=== PATIENT | male | born 1930 | race Caucasian/White ===

== ENCOUNTER 2019-06-18 15:59 | Inpatient (IN) | payer MEDICARE, OTHER ==
[2019-06-18] VITALS (26 sets, daily range): BP systolic 125–169; BP diastolic 46–63; PULSE 44–58; RESP 13–63; Ht 177.8 cm; Wt 73.0 kg
[~2019-06-18] VITALS: Ht 177.8 cm; Wt 73.0 kg
[~2019-06-18 15:59] MED LIST: ACET325S GTB; ALBU90AE INHALATION; ASCO250T96 G-TUBE; ASPI-903 GTB; ATOR10TA65 GTB; BISA5TAB6 PR; CARV6.2579 G-TUBE; CHLO473M4 MM; COLI150V10 IJ; DILT60TA PO; FAMO20TA18 GTB; FINA5TAB4 GTB; FOLI-49 GTB; LEVE500S8 IVPB; LEVE500V6 IVPB; LEVO150T7 PO; LIOT5TAB3 PO; LORA-444 IVP; LORA0.5T PO; LORA10TA3 GTB; MAGN2400 GTB; MAGN400T27 GTB; MULTI PO; ONDA4TAB13 IVP
[2019-06-18] MEDS ORDERED: BISACODYL 10 MG SUPP PR PRN (18:00)
[2019-06-18] MEDS ORDERED: ACETAMINOPHEN 650MG/20.3ML CUP GTB PRN (18:00)
[2019-06-18] MEDS ORDERED: LORAZEPAM 0.5 MG TAB GTB PRN (18:30)
[2019-06-18] MEDS ORDERED: ONDANSETRON 4 MG INJ IV PRN (18:30)
[2019-06-18] MEDS ORDERED: VANCOMYCIN IV PER PHARMACY XX SCH (18:30)
[2019-06-18] MEDS ORDERED: LORAZEPAM 2 MG INJ IV PRN (18:30)
[2019-06-18] MEDS ORDERED: MAGNESIUM HYDROXIDE 30ML CUP GTB PRN (18:30)
[2019-06-18] MEDS ORDERED: LEVETIRACETAM 500 MG (PMX) 100 ML IVPB ONE (18:30)
[2019-06-18] MEDS: DEXTROSE 5%-0.225% NACL 1,000 ML IV SCH (19:23)
--- NOTE | 2019-06-18 19:42 | CONS ---
Assessment/Plan Assessment/Plan Hospital Course (Demo Recall) Seizure with status epilepticus Marked sinus bradycardia appears to be related to medication as of mostly related to severe hypothyroidism Likely CVA Hypertension History of paroxysmal atrial fibrillation Anemia Respiratory failure status post tracheostomy vent dependent Encephalopathy This post sepsis urinary tract infection and pneumonia History of diabetes Renal insufficiency COPD History of dysphagia and ileus dyslipidemia Recommendations: Neuro work-up and treatment as per internal medicine and neurology consultation We will allow for permissive hypertension to the consideration for seizure being caused by acute CVA especially given the fact the 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 I will also check the cortisol level in a.m. We will closely monitor on the ICU Vent support will be continued Thank you for his referral. We will continue to follow along with you MARY JEAN BAPTISTE MD [facility] Consultation Date/Type/Reason Admit Date/Time Jun 18, 2019 at 16:30 Date of Consultation: Jun 18, 2019 Type of Consult Cardiology Reason for Consultation PAFIB .HTN Requesting Provider: GLORIA KWON MD Date/Time of Note DATE: 06/18/19 TIME: 19:41 Hx of Present Illness Interventional cardiology consultation note Chief complaint: Seizure Reason for consult: Paroxysmal atrial fibrillation, hypertension History of present illness: Thank you for this referral. History was obtained from review of the chart review of the ulcer discussion with staff and physician: Dr. Kwon. Patient also known to me from previous admission to [facility]. This is a 88-year-old gentleman with multiple complicated medical history who was transferred to our facility at the ICU because of recurrent seizures. Patient was transferred to [facility] a week ago almost. He has respiratory failure status post tracheostomy on the vent. He was noted to have seizure activity and after the seizure he has not been moving his right arm. Patient is nonverbal is unable to provide any history to me He has been noted to be severely bradycardic mostly in marked sinus bradycardia as low as 40s. Review of his labs from [facility] show that he has also been s everely hypothyroid and his TSH has been over 100. He has received IV Synthroid as well. Patient also has a history of paroxysmal atrial fibrillation and at [facility] has had very short transient episodes of A. fib. Patient has had severe anemia and has not been anticoagulated due to concerns about the bleeding and anemia Allergies: Penicillin Medications were reviewed as per medical reconciliation sheet Family history: No reported history early coronary artery disease Social history: Patient has been single and has no kids. Apparently he is an ex-smoker but detail is not clear Past medical history: Paroxysmal atrial fibrillation per old record thyroid disorder with severe hypothyroidism diabetes gastroesophageal reflux disease anemia COPD hypertension questionable history of CVA in the past. History of recurrent pleural effusion BPH. Especially failure status post tracheostomy vent dependent since June 2017. Renal failure in the past. History of dysphagia status post G-tube placement. Has been at some point on TPN has been due to ileus Review of system: Patient denies all others except for above-mentioned Past Medical History Medications Current Medications Diagnostic Test (Pha) (Accu-Chek) 1 ea Q12 XX ; Start 06/18/19 at 21:00 Acetaminophen (Tylenol Liquid) 650 mg Q4H PRN GTB MILD PAIN(1-3)OR ELEVATED TEMP; Start 06/18/19 at 18:00 Acetaminophen (Tylenol Liquid) 650 mg Q12 GTB ; Start 06/18/19 at 21:00 Albuterol/ Ipratropium (Duoneb) 3 ml Q4H RESP THERAPY HHN ; Start 06/18/19 at 21:00 Eye Lubricant (Artificial Tears Oph) 2 drop DAILY BOTH EYES ; Start 06/19/19 at 09:00 Ascorbic Acid (Vitamin C) 250 mg DAILY GTB ; Start 06/19/19 at 09:00 Aspirin (Aspirin) 81 mg DAILY GTB ; Start 06/19/19 at 09:00 Atorvastatin Calcium (Lipitor) 10 mg HS GTB ; Start 06/18/19 at 21:00 Aztreonam 50 ml @ 100 mls/hr Q8 IVPB ; Start 06/18/19 at 22:00 Bisacodyl (Dulcolax Supp) 10 mg DAILY PRN RI CONSTIPATION; Start 06/18/19 at 18:00 Carvedilol (Coreg) 6.25 mg BID GTB ; Start 06/18/19 at 21:00 Chlorhexidine Gluconate (Peridex) 15 ml BID MT ; Start 06/18/19 at 21:00 Dextrose/Sodium Chloride 1,000 ml @ 100 mls/hr Q10H IV Last administered on 06/18/19at 19:23; Admin Dose 100 MLS/HR; Start 06/18/19 at 18:30 Diltiazem HCl (Cardizem) 30 mg Q8 GTB ; Start 06/18/19 at 22:00 Famotidine (Pepcid) 20 mg HS GTB ; Start 06/18/19 at 21:00 Finasteride (Proscar) 5 mg DAILY GTB ; Start 06/19/19 at 09:00 Folic Acid (Folic Acid) 1 mg DAILY GTB ; Start 06/19/19 at 09:00 Heparin Sodium (Porcine) (Heparin (5000 Units/1ml)) 5,000 unit BID SC ; Start 06/18/19 at 21:00 Lactulose (Enulose) 30 gm Q8 GTB ; Start 06/18/19 at 22:00 Levetiracetam 100 ml @ 400 mls/hr Q12 IVPB ; Start 06/18/19 at 21:00 Loratadine (Claritin) 10 mg DAILY GTB ; Start 06/19/19 at 09:00 Lorazepam (Ativan) 0.5 mg Q4H PRN GTB ANXIETY; Start 06/18/19 at 18:30 Lorazepam (Ativan) 2 mg Q3H PRN IV SEIZURES; Start 06/18/19 at 18:30 Magnesium Hydroxide (Milk Of Mag) 30 ml DAILY PRN GTB CONSTIPATION; Start 06/18/19 at 18:30 Multivitamins/ Minerals (Theragran-M) 1 tab DAILY GTB ; Start 06/19/19 at 09:00 Ondansetron HCl (Zofran Inj) 4 mg Q6H PRN IV NAUSEA AND/OR VOMITING; Start 06/18/19 at 18:30 Vancomycin HCl (Vanco Iv Per Pharmacy) VANCOMYCIN PER PHARMACY PER PROTOCOL XX ; Start 06/18/19 at 18:30 Vancomycin HCl 1.25 gm/Dextrose 250 ml @ 83.333 mls/ hr Q36H IVPB ; Start 06/18/19 at 20:00 Allergies: Coded Allergies: Penicillins (Verified Allergy, Unknown, 07/18/09) Exam/Review of Systems Vital Signs Vitals Vital Signs Date Temp Pulse Resp B/P (MAP) Pulse Ox O2 O2 Flow FiO2 Time Delivery Rate 06/18/19 44 17:12 06/18/19 14 100 30 16:30 Exam Exam General: Elderly cachectic looking gentleman status post tracheostomy on the ventilator HEENT: NC/AT. Eyes are closed NECK: This post tracheostomy. no stridor. CV: Cardiac systolic murmur; no gallop or rubs. PULM: no wheezing . Mild rhonchi. GI: SOFT, NT, ND, post tube feeding Extremity: trace B/L LE edema. no clubbing. neuro: Lethargic, Psych: calm rectal: deferred . EKG done at [facility] shows marked sinus bradycardia right bundle branch block Labs Results 24hrs Laboratory Tests Test 06/18/19 18:07 Bedside Glucose 96 Medications Medications Current Medications Diagnostic Test (Pha) (Accu-Chek) 1 ea Q12 XX ; Start 06/18/19 at 21:00 Acetaminophen (Tylenol Liquid) 650 mg Q4H PRN GTB MILD PAIN(1-3)OR ELEVATED TEMP; Start 06/18/19 at 18:00 Acetaminophen (Tylenol Liquid) 650 mg Q12 GTB ; Start 06/18/19 at 21:00 Albuterol/ Ipratropium (Duoneb) 3 ml Q4H RESP THERAPY HHN ; Start 06/18/19 at 21:00 Eye Lubricant (Artificial Tears Oph) 2 drop DAILY BOTH EYES ; Start 06/19/19 at 09:00 Ascorbic Acid (Vitamin C) 250 mg DAILY GTB ; Start 06/19/19 at 09:00 Aspirin (Aspirin) 81 mg DAILY GTB ; Start 06/19/19 at 09:00 Atorvastatin Calcium (Lipitor) 10 mg HS GTB ; Start 06/18/19 at 21:00 Aztreonam 50 ml @ 100 mls/hr Q8 IVPB ; Start 06/18/19 at 22:00 Bisacodyl (Dulcolax Supp) 10 mg DAILY PRN RI CONSTIPATION; Start 06/18/19 at 18:00 Carvedilol (Coreg) 6.25 mg BID GTB ; Start 06/18/19 at 21:00 Chlorhexidine Gluconate (Peridex) 15 ml BID MT ; Start 06/18/19 at 21:00 Dextrose/Sodium Chloride 1,000 ml @ 100 mls/hr Q10H IV Last administered on 06/18/19at 19:23; Admin Dose 100 MLS/HR; Start 06/18/19 at 18:30 Diltiazem HCl (Cardizem) 30 mg Q8 GTB ; Start 06/18/19 at 22:00 Famotidine (Pepcid) 20 mg HS GTB ; Start 06/18/19 at 21:00 Finasteride (Proscar) 5 mg DAILY GTB ; Start 06/19/19 at 09:00 Folic Acid (Folic Acid) 1 mg DAILY GTB ; Start 06/19/19 at 09:00 Heparin Sodium (Porcine) (Heparin (5000 Units/1ml)) 5,000 unit BID SC ; Start 06/18/19 at 21:00 Lactulose (Enulose) 30 gm Q8 GTB ; Start 06/18/19 at 22:00 Levetiracetam 100 ml @ 400 mls/hr Q12 IVPB ; Start 06/18/19 at 21:00 Loratadine (Claritin) 10 mg DAILY GTB ; Start 06/19/19 at 09:00 Lorazepam (Ativan) 0.5 mg Q4H PRN GTB ANXIETY; Start 06/18/19 at 18:30 Lorazepam (Ativan) 2 mg Q3H PRN IV SEIZURES; Start 06/18/19 at 18:30 Magnesium Hydroxide (Milk Of Mag) 30 ml DAILY PRN GTB CONSTIPATION; Start 06/18/19 at 18:30 Multivitamins/ Minerals (Theragran-M) 1 tab DAILY GTB ; Start 06/19/19 at 09:00 Ondansetron HCl (Zofran Inj) 4 mg Q6H PRN IV NAUSEA AND/OR VOMITING; Start 06/18/19 at 18:30 Vancomycin HCl (Vanco Iv Per Pharmacy) VANCOMYCIN PER PHARMACY PER PROTOCOL XX ; Start 06/18/19 at 18:30 Vancomycin HCl 1.25 gm/Dextrose 250 ml @ 83.333 mls/ hr Q36H IVPB ; Start 06/18/19 at 20:00 MARY JEAN BAPTISTE MD Jun 18, 2019 19:42
[2019-06-18] MEDS ORDERED: FENTAnyl (DRIP) 1000 mcg/100mL 100 ML IV SCH (20:00)
[2019-06-18] MEDS ORDERED: MIDAZOLAM (DRIP) 50 mg/50 mL 50 ML IV SCH (20:00)
[2019-06-18] MEDS ORDERED: VANCOMYCIN 1.25 GM in DEXTROSE 5% 250 ML IVPB SCH (20:00)
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
[2019-06-18] MEDS ORDERED: ACETAMINOPHEN 650MG/20.3ML CUP GTB SCH (21:00)
[2019-06-18] MEDS ORDERED: DEXTROSE 5% WATER 500 ML BAG IV ONE ×2 (21:00→21:30)
[2019-06-18] MEDS ORDERED: LEVOTHYROXINE 500 MCG VIAL IV ONE (21:00)
[2019-06-18] MEDS ORDERED: HEPARIN 5,000 UNIT/1 ML VIAL SC SCH (21:00)
[2019-06-18] MEDS ORDERED: ACCU-CHEK XX SCH (21:00)
[2019-06-18] MEDS ORDERED: ALBUTEROL/IPRATROPIUM (NEB) 3 ML AMP HHN SCH (21:00)
[2019-06-18] MEDS: CHLORHEXIDINE GLUCONATE 15 ML UD CUP MT SCH (21:26)
[2019-06-18] MEDS: AZTREONAM 1 GM/NS (PMX) 50 ML IVPB SCH (21:27)
[2019-06-18] MEDS: ATORVASTATIN 10 MG TAB GTB SCH (21:28)
[2019-06-18] MEDS: BALSAM PERU/CASTOR OIL 60 GM TUBE TOP SCH (21:28)
[2019-06-18] MEDS: FAMOTIDINE 20 MG TAB GTB SCH (21:28)
[2019-06-18] MEDS ORDERED: LEVOTHYROXINE 100 MCG VIAL IV ONE (21:30)
[2019-06-18] MEDS: LEVETIRACETAM 1500 MG (PMX) 100 ML IVPB SCH (21:40)
[2019-06-18] MEDS: DILTIAZEM 30 MG TAB GTB SCH (22:00)
[2019-06-18] MEDS ORDERED: LACTULOSE 30ML CUP GTB SCH (22:00)
[2019-06-19] VITALS (52 sets, daily range): BP systolic 94–157; BP diastolic 39–114; PULSE 36–67; RESP 14–25
[2019-06-19] MEDS: IPRATROPIUM (HFA) 12.9 GM INHALER INH SCH ×6 (01:42→21:26)
[2019-06-19] MEDS: ALBUTEROL HFA 8 GM INHALER INH SCH ×6 (01:42→21:26)
[2019-06-19] MEDS ORDERED: LEVOTHYROXINE 100 MCG TAB GTB SCH (06:00)
[2019-06-19] MEDS: ACCU-CHEK XX SCH ×4 (06:00→19:00)
[2019-06-19] MEDS: DILTIAZEM 30 MG TAB GTB SCH ×3 (06:00→22:00)
[2019-06-19] MEDS: DEXTROSE 5%-0.225% NACL 1,000 ML IV SCH ×2 (06:11→15:52)
[2019-06-19] MEDS: AZTREONAM 1 GM/NS (PMX) 50 ML IVPB SCH ×3 (06:11→21:30)
[2019-06-19] MEDS ORDERED: POTASSIUM CHLORIDE (SR) 20 MEQ TAB PO STA (07:23)
--- NOTE | 2019-06-19 07:33 | CONS ---
Assessment/Plan Assessment/Plan Problems: (1) Hypothyroidism (acquired) Status: Chronic Comment: This patient presents with a fairly clear picture of myxedema. This partially treated which she can tell from the free T4 but he is still extremely ill. He is received 1 dose IV to saturate the receptor as now on oral replacement and I am supplementing that with T3. This is an above average aggressive approach to this however given his extremis and the metabolic abnormalities going on I am choosing an aggressive approach initially and we can back down subsequently. These note since we have access to a functional GI tract I am using enteral route for replacement (2) Hypernatremia Status: Chronic Comment: Improved and close are normal, not quite normal yet (3) Acute hypokalemia Status: Acute Comment: Needs replacement which will do through the GI tract (4) Severe anemia Status: Chronic Comment: As per primary team (5) Hyperlipidemia Status: Chronic Comment: Noted. Under the present circumstances I am not certain of the utility of using a statin drug but he is already on Qualifiers: Hyperlipidemia type: unspecified Qualified Codes: E78.5 - Hyperlipidemia, unspecified (6) Chronic kidney disease (CKD) stage G3a/A2, moderately decreased glomerular filtration rate (GFR) between 45-59 mL/min/1.73 square meter and albuminuria creatinine ratio between 30-299 mg/g Status: Chronic Comment: Renal function improved with correction of dehydration (7) Maharaj catheter in place on admission Status: Chronic Comment: Noted. Please note he was seen by Dr. Villanueva while he was over [facility] (8) Prostatic hypertrophy Status: Chronic Comment: Continue with a 5 alpha reductase inhibitor (9) Respiratory failure Onset Date: ~ 05/2017 Status: Chronic Comment: As per pulmonary. I have doubts that he will be able to be weaned off the machine Qualifiers: Chronicity: chronic Respiratory failure complication: unspecified whether with hypoxia or hypercapnia Qualified Codes: J96.10 - Chronic respiratory failure, unspecified whether with hypoxia or hypercapnia (10) Encephalopathy Status: Chronic Comment: Still extremely encephalopathic. Impossible to determine where he will be once we get the thyroid function corrected but I do not have high hopes (11) Paroxysmal atrial fibrillation Status: Chronic Comment: Remains in sinus rhythm despite usage of aggressive thyroid hormone replacement Consultation Date/Type/Reason Admit Date/Time Jun 18, 2019 at 16:30 Initial Consult Date 06/18/19 Type of Consult Endocrine Reason for Consultation Myxedema; chronic encephalopathy; chronic respiratory failure with chronic tracheostomy; unable to eat with G-tube; aspiration syndrome; chronic Maharaj catheter; dehydration with hypernatremia and acute renal insufficiency; seizure disorder Requesting Provider: GLORIA KWON MD Date/Time of Note DATE: 06/19/19 TIME: 07:28 24 HR Interval Summary Subjective hx not possible: pt non-verbal, pt critical status Exam/Review of Systems Exam Vitals Vital Signs Date Temp Pulse Resp B/P (MAP) Pulse Ox O2 O2 Flow FiO2 Time Delivery Rate 06/19/19 47 15 146/49 100 06:30 (81) 06/19/19 98.3 Mechanical 06:00 Ventilator 06/19/19 30 05:50 Intake and Output 06/18/19 06/18/19 06/19/19 1515:00 23:00 07:00 IntakeIntake Total 763.66 ml 1114.5 ml OutputOutput Total 560 ml BalanceBalance 763.66 ml 554.5 ml Constitutional: non-verbal Head: normocephalic, atraumatic Neck: other (Tracheostomy; no palpable thyroid enlargement) Respiratory: clear to auscultation, normal air movement Cardiovascular: regular rate and rhythm, nl pulses Gastrointestinal: soft, other (Gastrostomy tube present) Genitourinary - Male: other (Catheter pleasant present) Skin: other (Thickened cool dry skin) Results Result Diagram: 06/19/19 0430 06/19/19 0430 Results 24hrs Laboratory Tests Test 06/18/19 07:35 06/18/19 18:07 06/18/19 19:34 06/18/19 20:08 Hepatitis B NEGATIVE Surface Antigen Hepatitis C NEGATIVE Antibody Bedside Glucose 96 White Blood Count 8.9 Red Blood Count 2.29 L Hemoglobin 6.7 *L Hematocrit 22.1 L Mean Corpuscular 96.5 Volume Mean Corpuscular 29.3 Hemoglobin Mean Corpuscular 30.3 L Hemoglobin Concen t Red Cell 16.1 H Distribution Width Platelet Count 289 Mean Platelet 10.5 H Volume Immature 1.400 H Granulocytes % Segmented 61 Neutrophils % (Manual) Lymphocytes % 26 (Manual) Monocytes % 8 (Manual) Eosinophils % 2 (Manual) Basophils % 1 (Manual) Myelocytes % 2 H (Manual) Nucleated Red 0.2 H Blood Cells % Immature 0.120 H Granulocytes # Lymphocytes 2.3 (Manual) Monocytes # 0.7 (Manual) Basophils # 0.0 (Manual) Myelocytes # 0.1 H Pathologist YES Review (Hematolog y) Platelet Estimate NORMAL Giant Platelets 3 H Erythrocyte 129 H Sedimentation Rate Sodium Level 156 H Potassium Level 3.7 Chloride Level 124 H Carbon Dioxide 26 Level Anion Gap 6 Blood Urea 25 H Nitrogen Creatinine 1.30 H Est Glomerular Filtrat Rate mL/min Glucose Level 87 Calcium Level 8.8 Total Bilirubin 0.3 Direct Bilirubin 0.00 Indirect 0.3 Bilirubin Aspartate Amino 81 H Transf (AST/SGOT) Alanine 64 Aminotransferase (ALT/SGPT) Alkaline 130 H Phosphatase C-Reactive 2.3 H Protein Total Protein 7.9 Albumin 3.0 L Globulin 4.90 H Albumin/Globulin 0.61 Ratio Thyroid 116.000 H Stimulating Hormone (TSH) Free Thyroxine 0.85 Ionized Calcium 1.3 (Measured) Test 06/18/19 22:20 06/19/19 00:47 06/19/19 04:30 06/19/19 05:00 Bedside Glucose 141 156 White Blood Count 7.9 Red Blood Count 2.28 L Hemoglobin 6.7 *L Hematocrit 22.2 L Mean Corpuscular 97.4 Volume Mean Corpuscular 29.4 Hemoglobin Mean Corpuscular 30.2 L Hemoglobin Concen t Red Cell 16.2 H Distribution Width Platelet Count 265 Mean Platelet 10.6 H Volume Immature 1.900 H Granulocytes % Neutrophils % 50.4 Lymphocytes % 27.7 Monocytes % 13.9 H Eosinophils % 5.6 Basophils % 0.5 Nucleated Red 0.0 Blood Cells % Immature 0.150 H Granulocytes # Neutrophils # 4.0 Lymphocytes # 2.2 Monocytes # 1.1 H Eosinophils # 0.4 Basophils # 0.0 Nucleated Red 0.0 Blood Cells # Sodium Level 148 H Potassium Level 3.4 L Chloride Level 118 H Carbon Dioxide 27 Level Anion Gap 3 L Blood Urea 24 H Nitrogen Creatinine 1.24 Est Glomerular Filtrat Rate mL/min Glucose Level 115 Hemoglobin A1c 5.6 Calcium Level 8.4 Phosphorus Level 2.7 Magnesium Level 1.8 Total Bilirubin 0.3 Direct Bilirubin 0.00 Indirect 0.3 Bilirubin Aspartate Amino 62 H Transf (AST/SGOT) Alanine 51 Aminotransferase (ALT/SGPT) Alkaline 121 Phosphatase Total Protein 7.2 Albumin 2.7 L Globulin 4.50 H Albumin/Globulin 0.60 Ratio Blood Gas Blood arterial Specimen Source Arterial Blood 06/19/2019 5:02:1 Date Drawn 9 AM Arterial Blood pH 7.420 (Temp corrected) Arterial Blood 38.8 pCO2 (Temp correct) Arterial Blood 106.1 H pO2 (Temp corrected) Arterial Blood 24.6 HCO3 Arterial Blood 0.2 Base Excess Arterial Blood 97.8 Oxygen Saturation Shaw Test ACCEPTAB Arterial Blood Right Radial Gas Puncture Site Arterial 0 Blood Carboxyhemo globin Arterial Blood 0.4 Methemoglobin Blood Gas A-a O2 62.2 H Differential Oxyhemoglobin 97.4 Percent Blood Gas 37.0 Temperature Blood Gas 14.0 Respiration Rate Blood Gas Actual 15 Respiration Rate Blood Gas VENT - AC Modality FiO2 30.0 Blood Gas Tidal 500.0 Volume Blood Gas Low 5.0 PEEP Setting Blood Gas Notified Whom Blood Gas 06/19/2019 5:10:0 Notified Time 6 AM Test 06/19/19 06:05 Bedside Glucose 105 Medications Medication Current Medications Acetaminophen (Tylenol Liquid) 650 mg Q4H PRN GTB MILD PAIN(1-3)OR ELEVATED TEMP; Start 06/18/19 at 18:00 Eye Lubricant (Artificial Tears Oph) 2 drop DAILY BOTH EYES ; Start 06/19/19 at 09:00 Ascorbic Acid (Vitamin C) 250 mg DAILY GTB ; Start 06/19/19 at 09:00 Aspirin (Aspirin) 81 mg DAILY GTB ; Start 06/19/19 at 09:00 Atorvastatin Calcium (Lipitor) 10 mg HS GTB Last administered on 06/18/19at 21:28; Admin Dose 10 MG; Start 06/18/19 at 21:00 Aztreonam 50 ml @ 100 mls/hr Q8 IVPB Last administered on 06/19/19at 06:11; Admin Dose 100 MLS/HR; Start 06/18/19 at 22:00 Bisacodyl (Dulcolax Supp) 10 mg DAILY PRN [place] CONSTIPATION; Start 06/18/19 at 18:00 Carvedilol (Coreg) 6.25 mg BID GTB ; Start 06/18/19 at 21:00 Chlorhexidine Gluconate (Peridex) 15 ml BID MT Last administered on 06/18/19at 21:26; Admin Dose 15 ML; Start 06/18/19 at 21:00 Dextrose/Sodium Chloride 1,000 ml @ 100 mls/hr Q10H IV Last administered on 06/19/19at 06:11; Admin Dose 100 MLS/HR; Start 06/18/19 at 18:30 Diltiazem HCl (Cardizem) 30 mg Q8 GTB ; Start 06/18/19 at 22:00 Famotidine (Pepcid) 20 mg HS GTB Last administered on 06/18/19at 21:28; Admin Dose 20 MG; Start 06/18/19 at 21:00 Finasteride (Proscar) 5 mg DAILY GTB ; Start 06/19/19 at 09:00 Folic Acid (Folic Acid) 1 mg DAILY GTB ; Start 06/19/19 at 09:00 Heparin Sodium (Porcine) (Heparin (5000 Units/1ml)) 5,000 unit BID SC ; Start 06/18/19 at 21:00; Status Hold Lactulose (Enulose) 30 gm Q8 GTB ; Start 06/18/19 at 22:00; Status Hold Levetiracetam 100 ml @ 400 mls/hr Q12 IVPB Last administered on 06/18/19at 21:40; Admin Dose 400 MLS/HR; Start 06/18/19 at 21:00 Loratadine (Claritin) 10 mg DAILY GTB ; Start 06/19/19 at 09:00 Lorazepam (Ativan) 0.5 mg Q4H PRN GTB ANXIETY; Start 06/18/19 at 18:30 Lorazepam (Ativan) 2 mg Q3H PRN IV SEIZURES; Start 06/18/19 at 18:30 Magnesium Hydroxide (Milk Of Mag) 30 ml DAILY PRN GTB CONSTIPATION; Start 06/18/19 at 18:30 Multivitamins/ Minerals (Theragran-M) 1 tab DAILY GTB ; Start 06/19/19 at 09:00 Ondansetron HCl (Zofran Inj) 4 mg Q6H PRN IV NAUSEA AND/OR VOMITING; Start 06/18/19 at 18:30 Vancomycin HCl (Vanco Iv Per Pharmacy) VANCOMYCIN PER PHARMACY PER PROTOCOL XX ; Start 06/18/19 at 18:30 Vancomycin HCl 1.25 gm/Dextrose 250 ml @ 83.333 mls/ hr Q36H IVPB Last administered on 06/18/19at 21:27; Admin Dose 83.333 MLS/HR; Start 06/18/19 at 20:00 Midazolam HCl 50 ml @ 1 mls/hr TITRATE IV Last administered on 06/18/19at 21:27; Admin Dose 1 MLS/HR; Start 06/18/19 at 20:00 Fentanyl 100 ml @ 2.5 mls/hr TITRATE IV Last administered on 06/18/19at 21:30; Admin Dose 2.5 MLS/HR; Start 06/18/19 at 20:00 Liothyronine Sodium (Cytomel) 5 mcg DAILY GTB ; Start 06/19/19 at 09:00 Diagnostic Test (Pha) (Accu-Chek) 1 ea Q6 XX ; Start 06/19/19 at 00:00; Stop 06/20/19 at 23:59 Albuterol (Ventolin Hfa) 4 puff Q4H RESP THERAPY INH Last administered on 06/19/19at 04:46; Admin Dose 4 PUFF; Start 06/19/19 at 01:00 Ipratropium [place] (Atrovent Hfa) 4 puff Q4H RESP THERAPY INH Last administered on 06/19/19at 04:46; Admin Dose 4 PUFF; Start 06/19/19 at 01:00 Levothyroxine Sodium (Synthroid) 150 mcg DAILY@06 GTB ; Start 06/20/19 at 06:00 INA VELAZQUEZ MD Jun 19, 2019 07:33
[2019-06-19] MEDS ORDERED: FINASTERIDE 5 MG TAB GTB SCH (09:00)
[2019-06-19] MEDS ORDERED: ASPIRIN 81 MG TAB GTB SCH (09:00)
[2019-06-19] MEDS ORDERED: LIOTHYRONINE 5 MCG TAB GTB SCH (09:00)
[2019-06-19] MEDS ORDERED: ARTIFICIAL TEARS 15 ML OPH BOTH EYES SCH (09:00)
[2019-06-19] MEDS ORDERED: MULTIVITAMINS/MINERALS TAB GTB SCH (09:00)
[2019-06-19] MEDS ORDERED: FOLIC ACID 1 MG TAB GTB SCH (09:00)
[2019-06-19] MEDS ORDERED: ASCORBIC ACID 250 MG TAB GTB SCH (09:00)
[2019-06-19] MEDS ORDERED: LORATADINE 10 MG TAB GTB SCH (09:00)
--- NOTE | 2019-06-19 09:23 | CONS ---
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 History of paroxysmal atrial fibrillation Anemia Respiratory failure status post tracheostomy vent dependent Encephalopathy This post sepsis urinary tract infection and pneumonia History of diabetes Renal insufficiency COPD History of dysphagia and ileus s/p percutanesou J tube Recommendations: Neuro work-up and treatment as per internal medicine and neurology consultation continue tube feeds routine J tube care continue other supportive care Consultation Date/Type/Reason Admit Date/Time Jun 18, 2019 at 16:30 Initial Consult Date 06/18/19 Type of Consult GI Requesting Provider: GLORIA KWON MD Date/Time of Note DATE: 06/19/19 TIME: 09:20 24 HR Interval Summary Subjective hx not possible: pt non-verbal Exam/Review of Systems Exam Vitals Vital Signs Date Temp Pulse Resp B/P (MAP) Pulse Ox O2 O2 Flow FiO2 Time Delivery Rate 06/19/19 46 15 100 30 07:35 06/19/19 146/49 06:30 (81) 06/19/19 98.3 Mechanical 06:00 Ventilator Intake and Output 06/18/19 06/18/19 06/19/19 1515:00 23:00 07:00 IntakeIntake Total 763.66 ml 1114.5 ml OutputOutput Total 560 ml BalanceBalance 763.66 ml 554.5 ml Constitutional: non-verbal Psych: no complaints Head: normocephalic, atraumatic Eyes: nl conjunctiva, nl lids ENMT: nl external ears & nose, nl lips & teeth, nl nasal mucosa & septum Neck: supple, non-tender Respiratory: clear to auscultation, normal air movement Cardiovascular: regular rate and rhythm, nl pulses Gastrointestinal: soft, other (J tube intact) Results Result Diagram: 06/19/19 0430 06/19/19 0430 Results 24hrs Laboratory Tests Test 06/18/19 18:07 06/18/19 19:34 06/18/19 20:08 06/18/19 22:20 Bedside Glucose 96 141 White Blood Count 8.9 Red Blood Count 2.29 L Hemoglobin 6.7 *L Hematocrit 22.1 L Mean Corpuscular 96.5 Volume Mean Corpuscular 29.3 Hemoglobin Mean Corpuscular 30.3 L Hemoglobin Concen t Red Cell 16.1 H Distribution Width Platelet Count 289 Mean Platelet 10.5 H Volume Immature 1.400 H Granulocytes % Segmented 61 Neutrophils % (Manual) Lymphocytes % 26 (Manual) Monocytes % 8 (Manual) Eosinophils % 2 (Manual) Basophils % 1 (Manual) Myelocytes % 2 H (Manual) Nucleated Red 0.2 H Blood Cells % Immature 0.120 H Granulocytes # Lymphocytes 2.3 (Manual) Monocytes # 0.7 (Manual) Basophils # 0.0 (Manual) Myelocytes # 0.1 H Pathologist YES Review (Hematolog y) Platelet Estimate NORMAL Giant Platelets 3 H Erythrocyte 129 H Sedimentation Rate Sodium Level 156 H Potassium Level 3.7 Chloride Level 124 H Carbon Dioxide 26 Level Anion Gap 6 Blood Urea 25 H Nitrogen Creatinine 1.30 H Est Glomerular Filtrat Rate mL/min Glucose Level 87 Calcium Level 8.8 Total Bilirubin 0.3 Direct Bilirubin 0.00 Indirect 0.3 Bilirubin Aspartate Amino 81 H Transf (AST/SGOT) Alanine 64 Aminotransferase (ALT/SGPT) Alkaline 130 H Phosphatase C-Reactive 2.3 H Protein Total Protein 7.9 Albumin 3.0 L Globulin 4.90 H Albumin/Globulin 0.61 Ratio Thyroid 116.000 H Stimulating Hormone (TSH) Free Thyroxine 0.85 Ionized Calcium 1.3 (Measured) Test 06/19/19 00:47 06/19/19 04:30 06/19/19 05:00 06/19/19 06:05 Bedside Glucose 156 105 White Blood Count 7.9 Red Blood Count 2.28 L Hemoglobin 6.7 *L Hematocrit 22.2 L Mean Corpuscular 97.4 Volume Mean Corpuscular 29.4 Hemoglobin Mean Corpuscular 30.2 L Hemoglobin Concen t Red Cell 16.2 H Distribution Width Platelet Count 265 Mean Platelet 10.6 H Volume Immature 1.900 H Granulocytes % Neutrophils % 50.4 Lymphocytes % 27.7 Monocytes % 13.9 H Eosinophils % 5.6 Basophils % 0.5 Nucleated Red 0.0 Blood Cells % Immature 0.150 H Granulocytes # Neutrophils # 4.0 Lymphocytes # 2.2 Monocytes # 1.1 H Eosinophils # 0.4 Basophils # 0.0 Nucleated Red 0.0 Blood Cells # Sodium Level 148 H Potassium Level 3.4 L Chloride Level 118 H Carbon Dioxide 27 Level Anion Gap 3 L Blood Urea 24 H Nitrogen Creatinine 1.24 Est Glomerular Filtrat Rate mL/min Glucose Level 115 Hemoglobin A1c 5.6 Calcium Level 8.4 Phosphorus Level 2.7 Magnesium Level 1.8 Total Bilirubin 0.3 Direct Bilirubin 0.00 Indirect 0.3 Bilirubin Aspartate Amino 62 H Transf (AST/SGOT) Alanine 51 Aminotransferase (ALT/SGPT) Alkaline 121 Phosphatase Total Protein 7.2 Albumin 2.7 L Globulin 4.50 H Albumin/Globulin 0.60 Ratio Random Cortisol 10.0 Blood Gas Blood arterial Specimen Source Arterial Blood 06/19/2019 5:02:1 Date Drawn 9 AM Arterial Blood pH 7.420 (Temp corrected) Arterial Blood 38.8 pCO2 (Temp correct) Arterial Blood 106.1 H pO2 (Temp corrected) Arterial Blood 24.6 HCO3 Arterial Blood 0.2 Base Excess Arterial Blood 97.8 Oxygen Saturation Shaw Test ACCEPTAB Arterial Blood Right Radial Gas Puncture Site Arterial 0 Blood Carboxyhemo globin Arterial Blood 0.4 Methemoglobin Blood Gas A-a O2 62.2 H Differential Oxyhemoglobin 97.4 Percent Blood Gas 37.0 Temperature Blood Gas 14.0 Respiration Rate Blood Gas Actual 15 Respiration Rate Blood Gas VENT - AC Modality FiO2 30.0 Blood Gas Tidal 500.0 Volume Blood Gas Low 5.0 PEEP Setting Blood Gas Notified Whom Blood Gas 06/19/2019 5:10:0 Notified Time 6 AM Medications Medication Current Medications Acetaminophen (Tylenol Liquid) 650 mg Q4H PRN GTB MILD PAIN(1-3)OR ELEVATED TEMP; Start 06/18/19 at 18:00 Eye Lubricant (Artificial Tears Oph) 2 drop DAILY BOTH EYES ; Start 06/19/19 at 09:00 Ascorbic Acid (Vitamin C) 250 mg DAILY GTB ; Start 06/19/19 at 09:00 Aspirin (Aspirin) 81 mg DAILY GTB ; Start 06/19/19 at 09:00 Atorvastatin Calcium (Lipitor) 10 mg HS GTB Last administered on 06/18/19at 2 1:28; Admin Dose 10 MG; Start 06/18/19 at 21:00 Aztreonam 50 ml @ 100 mls/hr Q8 IVPB Last administered on 06/19/19at 06:11; Admin Dose 100 MLS/HR; Start 06/18/19 at 22:00 Bisacodyl (Dulcolax Supp) 10 mg DAILY PRN [place] CONSTIPATION; Start 06/18/19 at 18:00 Carvedilol (Coreg) 6.25 mg BID GTB ; Start 06/18/19 at 21:00 Chlorhexidine Gluconate (Peridex) 15 ml BID MT Last administered on 06/18/19at 21:26; Admin Dose 15 ML; Start 06/18/19 at 21:00 Dextrose/Sodium Chloride 1,000 ml @ 100 mls/hr Q10H IV Last administered on 06/19/19at 06:11; Admin Dose 100 MLS/HR; Start 06/18/19 at 18:30 Diltiazem HCl (Cardizem) 30 mg Q8 GTB ; Start 06/18/19 at 22:00 Famotidine (Pepcid) 20 mg HS GTB Last administered on 06/18/19at 21:28; Admin Dose 20 MG; Start 06/18/19 at 21:00 Finasteride (Proscar) 5 mg DAILY GTB ; Start 06/19/19 at 09:00 Folic Acid (Folic Acid) 1 mg DAILY GTB ; Start 06/19/19 at 09:00 Heparin Sodium (Porcine) (Heparin (5000 Units/1ml)) 5,000 unit BID SC ; Start 06/18/19 at 21:00; Status Hold Lactulose (Enulose) 30 gm Q8 GTB ; Start 06/18/19 at 22:00; Status Hold Levetiracetam 100 ml @ 400 mls/hr Q12 IVPB Last administered on 06/18/19at 21:40; Admin Dose 400 MLS/HR; Start 06/18/19 at 21:00 Loratadine (Claritin) 10 mg DAILY GTB ; Start 06/19/19 at 09:00 Lorazepam (Ativan) 0.5 mg Q4H PRN GTB ANXIETY; Start 06/18/19 at 18:30 Lorazepam (Ativan) 2 mg Q3H PRN IV SEIZURES; Start 06/18/19 at 18:30 Magnesium Hydroxide (Milk Of Mag) 30 ml DAILY PRN GTB CONSTIPATION; Start 06/18/19 at 18:30 Multivitamins/ Minerals (Theragran-M) 1 tab DAILY GTB ; Start 06/19/19 at 09:00 Ondansetron HCl (Zofran Inj) 4 mg Q6H PRN IV NAUSEA AND/OR VOMITING; Start 06/18/19 at 18:30 Vancomycin HCl (Vanco Iv Per Pharmacy) VANCOMYCIN PER PHARMACY PER PROTOCOL XX ; Start 06/18/19 at 18:30 Vancomycin HCl 1.25 gm/Dextrose 250 ml @ 83.333 mls/ hr Q36H IVPB Last administered on 06/18/19at 21:27; Admin Dose 83.333 MLS/HR; Start 06/18/19 at 20:00 Midazolam HCl 50 ml @ 1 mls/hr TITRATE IV Last administered on 06/18/19at 21:27; Admin Dose 1 MLS/HR; Start 06/18/19 at 20:00 Fentanyl 100 ml @ 2.5 mls/hr TITRATE IV Last administered on 06/18/19at 21:30; Admin Dose 2.5 MLS/HR; Start 06/18/19 at 20:00 Liothyronine Sodium (Cytomel) 5 mcg DAILY GTB ; Start 06/19/19 at 09:00 Diagnostic Test (Pha) (Accu-Chek) 1 ea Q6 XX ; Start 06/19/19 at 00:00; Stop 06/20/19 at 23:59 Albuterol (Ventolin Hfa) 4 puff Q4H RESP THERAPY INH Last administered on 06/19/19at 04:46; Admin Dose 4 PUFF; Start 06/19/19 at 01:00 Ipratropium [place] (Atrovent Hfa) 4 puff Q4H RESP THERAPY INH Last administered on 06/19/19at 04:46; Admin Dose 4 PUFF; Start 06/19/19 at 01:00 Levothyroxine Sodium (Synthroid) 150 mcg DAILY@06 GTB ; Start 06/20/19 at 06:00 ERVIN HUMMEL MD Jun 19, 2019 09:23
[2019-06-19] MEDS ORDERED: POTASSIUM CHLORIDE 20 MEQ POWDER FOR ORAL SOLN GTB ONE (09:30)
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
[2019-06-19] MEDS: CHLORHEXIDINE GLUCONATE 15 ML UD CUP MT SCH ×2 (09:37→20:48)
[2019-06-19] MEDS: BALSAM PERU/CASTOR OIL 60 GM TUBE TOP SCH ×2 (09:40→21:29)
[2019-06-19] MEDS: LEVETIRACETAM 1500 MG (PMX) 100 ML IVPB SCH ×2 (12:08→20:54)
[2019-06-19] MEDS ORDERED: COLISTIMETHATE (25 MG/ML INHAL SYG) NEB SCH (12:30)
--- NOTE | 2019-06-19 12:40 | PN ---
DATE: 06/19/2019 INFECTIOUS DISEASE PROGRESS NOTE SUBJECTIVE: The patient was transferred yesterday from [facility] secondary to seizures, had no seizures overnight, no fevers, looks comfortable and in no distress. PAST MEDICAL HISTORY: Significant for chronic respiratory failure and dysphagia, anemia, chronic encephalopathy, diabetes, COPD, dysphagia. MICROBIOLOGY: Sputum culture on 06/17/2019 at [facility] growing Acinetobacter baumannii, multi-drug resistant. Stool for C. diff from 2 days ago came back negative. INDWELLINGS: Trach, PEG, Maharaj. DIAGNOSTICS: Chest x-ray this morning revealed left lung base opacification, may represent pleural effusion, infiltrate or atelectasis, and cardiomegaly. LABORATORY DATA: WBC 7.9, H and H 6.7 and 22.2, platelets 265, neutrophils 50.4, BUN 24, creatinine 1.24. ANTIMICROBIALS: The patient is on: 1. Aztreonam. 2. Vancomycin. PHYSICAL EXAMINATION: GENERAL: This is a chronically ill-appearing, elderly man who is noncommunicative, in no distress. HEENT: Head atraumatic, normocephalic. NECK: Supple. Tracheostomy present. CHEST: Rise symmetrical. Breath sounds diminished at the bases. HEART: S1, S2. ABDOMEN: Soft. Bowel tones present. EXTREMITIES: With trace edema. ASSESSMENT: 1. Status epilepticus, neurology on case. 2. Spinal diskitis and osteomyelitis per report from another facility, the patient is on broad spectrum coverage. 3. 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 4. Chronic encephalopathy. 5. Acute possibly on chronic kidney disease. PLAN: We are going to add colistin to the regimen. Continue other antibiotics. Await for spinal MRI. Transfuse as needed and monitor H and H. Pending stool for OB. Dictated By: BLAIR MERCADO S[employer] MIXER for KERRY CORRIGAN MD NI/NTS Conf#: [id number] DID#: [id number] CC: GLORIA KWON MD;*EndCC* MTDD
--- NOTE | 2019-06-19 14:28 | CONS ---
Consult Date/Type/Reason Admit Date/Time Jun 18, 2019 at 16:30 Initial Consult Date 06/18/19 Type of Consultation: cv Requesting Provider: GLORIA KWON MD Date/Time of Note DATE: 06/19/19 TIME: 14:22 Subjective Cardiology follow-up progress note Subjective: Case discussed with the staff. Telemetry was reviewed. Patient has remained in sinus rhythm with no more episode of atrial fibrillation. Patient remains nonverbal status with tracheostomy on the ventilator Objective: General: Elderly cachectic looking gentleman status post tracheostomy on the v entilator HEENT: NC/AT. Eyes are closed NECK: This post tracheostomy. no stridor. CV: Cardiac systolic murmur; no gallop or rubs. PULM: no wheezing . Mild rhonchi. GI: SOFT, NT, ND, post tube feeding Extremity: trace B/L LE edema. no clubbing. neuro: Lethargic, Psych: calm rectal: deferred . EKG done at [facility] shows marked sinus bradycardia right bundle branch block Objective Vitals Vital Signs Date Temp Pulse Resp B/P (MAP) Pulse Ox O2 O2 Flow FiO2 Time Delivery Rate 06/19/19 47 14 100 30 13:08 06/19/19 146/49 06:30 (81) 06/19/19 98.3 Mechanical 06:00 Ventilator Intake and Output 06/18/19 06/18/19 06/19/19 1414:59 22:59 06:59 IntakeIntake Total 456.83 ml 1421.33 ml OutputOutput Total 560 ml BalanceBalance 456.83 ml 861.33 ml Results/Medications Result Diagram: 06/19/19 0430 06/19/19 0430 Results 24 hrs Laboratory Tests Test 06/18/19 18:07 06/18/19 19:34 06/18/19 20:08 06/18/19 22:20 Bedside Glucose 96 141 White Blood Count 8.9 Red Blood Count 2.29 L Hemoglobin 6.7 *L Hematocrit 22.1 L Mean Corpuscular 96.5 Volume Mean Corpuscular 29.3 Hemoglobin Mean Corpuscular 30.3 L Hemoglobin Concen t Red Cell 16.1 H Distribution Width Platelet Count 289 Mean Platelet 10.5 H Volume Immature 1.400 H Granulocytes % Segmented 61 Neutrophils % (Manual) Lymphocytes % 26 (Manual) Monocytes % 8 (Manual) Eosinophils % 2 (Manual) Basophils % 1 (Manual) Myelocytes % 2 H (Manual) Nucleated Red 0.2 H Blood Cells % Immature 0.120 H Granulocytes # Lymphocytes 2.3 (Manual) Monocytes # 0.7 (Manual) Basophils # 0.0 (Manual) Myelocytes # 0.1 H Pathologist YES Review (Hematolog y) Platelet Estimate NORMAL Giant Platelets 3 H Erythrocyte 129 H Sedimentation Rate Sodium Level 156 H Potassium Level 3.7 Chloride Level 124 H Carbon Dioxide 26 Level Anion Gap 6 Blood Urea 25 H Nitrogen Creatinine 1.30 H Est Glomerular Filtrat Rate mL/min Glucose Level 87 Calcium Level 8.8 Total Bilirubin 0.3 Direct Bilirubin 0.00 Indirect 0.3 Bilirubin Aspartate Amino 81 H Transf (AST/SGOT) Alanine 64 Aminotransferase (ALT/SGPT) Alkaline 130 H Phosphatase C-Reactive 2.3 H Protein Total Protein 7.9 Albumin 3.0 L Globulin 4.90 H Albumin/Globulin 0.61 Ratio Thyroid 116.000 H Stimulating Hormone (TSH) Free Thyroxine 0.85 Ionized Calcium 1.3 (Measured) Test 06/19/19 00:47 06/19/19 04:30 06/19/19 05:00 06/19/19 06:05 Bedside Glucose 156 105 White Blood Count 7.9 Red Blood Count 2.28 L Hemoglobin 6.7 *L Hematocrit 22.2 L Mean Corpuscular 97.4 Volume Mean Corpuscular 29.4 Hemoglobin Mean Corpuscular 30.2 L Hemoglobin Concen t Red Cell 16.2 H Distribution Width Platelet Count 265 Mean Platelet 10.6 H Volume Immature 1.900 H Granulocytes % Neutrophils % 50.4 Lymphocytes % 27.7 Monocytes % 13.9 H Eosinophils % 5.6 Basophils % 0.5 Nucleated Red 0.0 Blood Cells % Immature 0.150 H Granulocytes # Neutrophils # 4.0 Lymphocytes # 2.2 Monocytes # 1.1 H Eosinophils # 0.4 Basophils # 0.0 Nucleated Red 0.0 Blood Cells # Sodium Level 148 H Potassium Level 3.4 L Chloride Level 118 H Carbon Dioxide 27 Level Anion Gap 3 L Blood Urea 24 H Nitrogen Creatinine 1.24 Est Glomerular Filtrat Rate mL/min Glucose Level 115 Hemoglobin A1c 5.6 Calcium Level 8.4 Phosphorus Level 2.7 Magnesium Level 1.8 Total Bilirubin 0.3 Direct Bilirubin 0.00 Indirect 0.3 Bilirubin Aspartate Amino 62 H Transf (AST/SGOT) Alanine 51 Aminotransferase (ALT/SGPT) Alkaline 121 Phosphatase Total Protein 7.2 Albumin 2.7 L Globulin 4.50 H Albumin/Globulin 0.60 Ratio Random Cortisol 10.0 Blood Gas Blood arterial Specimen Source Arterial Blood 06/19/2019 5:02:1 Date Drawn 9 AM Arterial Blood pH 7.420 (Temp corrected) Arterial Blood 38.8 pCO2 (Temp correct) Arterial Blood 106.1 H pO2 (Temp corrected) Arterial Blood 24.6 HCO3 Arterial Blood 0.2 Base Excess Arterial Blood 97.8 Oxygen Saturation Shaw Test ACCEPTAB Arterial Blood Right Radial Gas Puncture Site Arterial 0 Blood Carboxyhemo globin Arterial Blood 0.4 Methemoglobin Blood Gas A-a O2 62.2 H Differential Oxyhemoglobin 97.4 Percent Blood Gas 37.0 Temperature Blood Gas 14.0 Respiration Rate Blood Gas Actual 15 Respiration Rate Blood Gas VENT - AC Modality FiO2 30.0 Blood Gas Tidal 500.0 Volume Blood Gas Low 5.0 PEEP Setting Blood Gas Notified Whom Blood Gas 06/19/2019 5:10:0 Notified Time 6 AM Test 06/19/19 13:43 Bedside Glucose 83 Medications Current Medications Acetaminophen (Tylenol Liquid) 650 mg Q4H PRN GTB MILD PAIN(1-3)OR ELEVATED TEMP; Start 06/18/19 at 18:00 Eye Lubricant (Artificial Tears Oph) 2 drop DAILY BOTH EYES Last administered on 06/19/19at 09:39; Admin Dose 2 DROP; Start 06/19/19 at 09:00 Ascorbic Acid (Vitamin C) 250 mg DAILY GTB Last administered on 06/19/19at 09:37; Admin Dose 250 MG; Start 06/19/19 at 09:00 Aspirin (Aspirin) 81 mg DAILY GTB Last administered on 06/19/19 09:37; Admin Dose 81 MG; Start 06/19/19 at 09:00 Atorvastatin Calcium (Lipitor) 10 mg HS GTB Last administered on 06/18/19at 21:28; Admin Dose 10 MG; Start 06/18/19 at 21:00 Aztreonam 50 ml @ 100 mls/hr Q8 IVPB Last administered on 06/19/19at 06:11; Admin Dose 100 MLS/HR; Start 06/18/19 at 22:00 Bisacodyl (Dulcolax Supp) 10 mg DAILY PRN [place] CONSTIPATION; Start 06/18/19 at 18:00 Carvedilol (Coreg) 6.25 mg BID GTB ; Start 06/18/19 at 21:00 Chlorhexidine Gluconate (Peridex) 15 ml BID MT Last administered on 06/19/19at 09:37; Admin Dose 15 ML; Start 06/18/19 at 21:00 Dextrose/Sodium Chloride 1,000 ml @ 100 mls/hr Q10H IV Last administered on 06/19/19at 06:11; Admin Dose 100 MLS/HR; Start 06/18/19 at 18:30 Diltiazem HCl (Cardizem) 30 mg Q8 GTB ; Start 06/18/19 at 22:00 Famotidine (Pepcid) 20 mg HS GTB Last administered on 06/18/19at 21:28; Admin Dose 20 MG; Start 06/18/19 at 21:00 Finasteride (Proscar) 5 mg DAILY GTB Last administered on 06/19/19at 09:38; Admin Dose 5 MG; Start 06/19/19 at 09:00 Folic Acid (Folic Acid) 1 mg DAILY GTB Last administered on 06/19/19at 09:37; Admin Dose 1 MG; Start 06/19/19 at 09:00 Heparin Sodium (Porcine) (Heparin (5000 Units/1ml)) 5,000 unit BID SC ; Start 06/18/19 at 21:00; Status Hold Lactulose (Enulose) 30 gm Q8 GTB ; Start 06/18/19 at 22:00; Status Hold Levetiracetam 100 ml @ 400 mls/hr Q12 IVPB Last administered on 06/19/19at 12:08; Admin Dose 400 MLS/HR; Start 06/18/19 at 21:00 Loratadine (Claritin) 10 mg DAILY GTB Last administered on 06/19/19at 09:38; Admin Dose 10 MG; Start 06/19/19 at 09:00 Lorazepam (Ativan) 0.5 mg Q4H PRN GTB ANXIETY; Start 06/18/19 at 18:30 Lorazepam (Ativan) 2 mg Q3H PRN IV SEIZURES; Start 06/18/19 at 18:30 Magnesium Hydroxide (Milk Of Mag) 30 ml DAILY PRN GTB CONSTIPATION; Start 06/18/19 at 18:30 Multivitamins/ Minerals (Theragran-M) 1 tab DAILY GTB Last administered on 06/19/19at 09:37; Admin Dose 1 TAB; Start 06/19/19 at 09:00 Ondansetron HCl (Zofran Inj) 4 mg Q6H PRN IV NAUSEA AND/OR VOMITING; Start 06/18/19 at 18:30 Vancomycin HCl (Vanco Iv Per Pharmacy) VANCOMYCIN PER PHARMACY PER PROTOCOL XX ; Start 06/18/19 at 18:30 Vancomycin HCl 1.25 gm/Dextrose 250 ml @ 83.333 mls/ hr Q36H IVPB Last administered on 06/18/19at 21:27; Admin Dose 83.333 MLS/HR; Start 06/18/19 at 20:00 Midazolam HCl 50 ml @ 1 mls/hr TITRATE IV Last administered on 06/18/19at 21:27; Admin Dose 1 MLS/HR; Start 06/18/19 at 20:00 Fentanyl 100 ml @ 2.5 mls/hr TITRATE IV Last administered on 06/18/19at 21:30; Admin Dose 2.5 MLS/HR; Start 06/18/19 at 20:00 Liothyronine Sodium (Cytomel) 5 mcg DAILY GTB Last administered on 06/19/19at 09:38; Admin Dose 5 MCG; Start 06/19/19 at 09:00 Diagnostic Test (Pha) (Accu-Chek) 1 ea Q6 XX ; Start 06/19/19 at 00:00; Stop at 23:59 Albuterol (Ventolin Hfa) 4 puff Q4H RESP THERAPY INH Last administered on 06/19/19at 13:08; Admin Dose 4 PUFF; Start 06/19/19 at 01:00 Ipratropium [place] (Atrovent Hfa) 4 puff Q4H RESP THERAPY INH Last administered on 06/19/19at 13:08; Admin Dose 4 PUFF; Start 06/19/19 at 01:00 Levothyroxine Sodium (Synthroid) 150 mcg DAILY@06 GTB ; Start 06/20/19 at 06:00 Colistimethate Sodium (Colistin Inhal) 75 mg BID RESP THERAPY NEB ; Start 06/19/19 at 12:30 Miscellaneous Information (*Rx Drug Level Order Reminder*) VANCO TROUGH @ 0,700 0700 ONCE XX ; Start 06/20/19 at 07:00; Stop 06/20/19 at 07:01 Assessment/Plan Hospital Course (Demo Recall) Seizure with status epilepticus Marked sinus bradycardia appears to be related to medication as well as mostly related to severe hypothyroidism 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 Hypertension History of paroxysmal atrial fibrillation Anemia Respiratory failure status post tracheostomy vent dependent Encephalopathy This post sepsis urinary tract infection and pneumonia History of diabetes Renal insufficiency COPD History of dysphagia and ileus dyslipidemia Severe thyroid disorder Recommendations: Neuro work-up and treatment as per internal medicine and neurology consultation We will allow for permissive hypertension to the consideration for seizure being caused by acute CVA especially given the fact the patient has had 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 We will closely monitor on the ICU Vent support will be continued Transfusions as needed off amiodarone due to his severe thyroid d/o Thank you for his referral. We will continue to follow along with you MARY JEAN BAPTISTE MD [facility] MARY JEAN BAPTISTE MD Jun 19, 2019 14:27
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
[2019-06-19] MEDS ORDERED: COSYNTROPIN 0.25 MG INJ IV ONE (15:35)
--- NOTE | 2019-06-19 16:48 | RADRPT ---
Echocardiogram Report Patient Name: ILDEFONSO PEARLPatient ID: [id number] : 1930 (88y 7m)Study Date: 06/19/2019 8:03:23 AM Gender: Osielcession #: [id number] Tech: OSIEL Location: [facility] Ref.Physician: MARY WILDER Height(Cm): 178 BSA: 1.89Weight(Kg): 72.6 Quality: Technically Difficult StudyOrder Physician: MARY WILDER Account #: Procedures: Echocardiographic Report: Transthoracic echocardiogram with complete 2D, M-Mode, and doppler examination. Indications: Cerebrovascular Accident. Measurements: 2D/M Mode Doppler Measurement Value Normal Range Measurement Value Normal Range LVIDd 2D 4.4 [ 4.2 - 5.8 ] cm AV Peak Buck 1.3 [ 100.0 - 170.0 ] cm/se c LVIDs 2D 2.8 [ 2.5 - 4.0 ] cm AV Peak PG 6.0 [ 2.0 - 9.0 ] mmHg LVPWd 2D 1.1 [ 0.6 - 1.0 ] cm AI Peak PG 53.0 mmHg IVSd 2D 1.2 [ 0.6 - 1.0 ] cm AI Peak Buck 3.6 cm/sec AoR Diam 2D 3.6 [ 2.6 - 3.4 ] cm AI PHT 500.0 msec EF 2D 66.7 [ 52.0 - 72.0 ] percent LVOT Peak Buck 0.7 [ 70.0 - 110.0 ] cm/sec LA Dimen 2D 3.8 [ 3.0 - 4.0 ] cm LVOT Peak PG 2.0 [ 2.0 - 6.0 ] mmHg MV E Peak Buck 1.0 [ 60.0 - 130.0 ] cm/sec MV A Peak Buck 0.9 [ 100.0 - 120.0 ] cm/se c MV E/A 1.2 [ 0.8 - 1.5 ] ratio MV PHT 46.0 [ 20.0 - 100.0 ] msec MV Decel Time 158 [ 104 - 258 ] msec MV Decel [place] 7 Lat E` Buck 0.1 [ 10.0 - 15.0 ] cm/sec Lateral E/E` 12.0 [ 1.0 - 2.0 ] ratio Med E` Buck 0.1 cm/sec MV E/A 1.2 [ 0.8 - 1.5 ] ratio MVA PHT 4.8 [ 2.0 - 4.0 ] cm2 TR Peak Buck 3.1 [ 100.0 - 280.0 ] cm/se c TR Peak PG 38.0 mmHg PV Peak Buck 0.8 [ 40.0 - 80.0 ] cm/sec PV Peak PG 3.0 mmHg RVSP 48.0 [ 10.0 - 36.0 ] mmHg RA Pressure 10.0 mmHg Findings: Left Ventricle: Normal left ventricular systolic function. Normal left ventricular cavity size. Mild concentric left ventricular hypertrophy. Ejection fraction is visually estimated at 55 %. Tissue Doppler/Mitral Doppler indices are consistent with pseudonormalization with mildly elevated left atrial pressure (Stage II diastolic dysfunction), although patient unable to Valsalva. E/E'= 13. Right Ventricle: Normal right ventricular size. Normal right ventricular systolic function. Left Atrium: The left atrium is normal in size. Right Atrium: The right atrium is normal in size. Atrial Septum: Normal atrial septum. Mitral Valve: Normal appearance of the mitral valve. Mild mitral valve regurgitation. Aortic Valve: Aortic valve not well visualized. Aortic cusps appear mildly calcified. Trileaflet aortic valve. Moderate aortic valve regurgitation. Tricuspid Valve: Normal appearance of the tricuspid valve. The estimated Peak RVSP is 48 mmHg. There is mild to moderate tricuspid regurgitation. Pulmonic Valve: Normal pulmonic valve appearance. There is trace pulmonic regurgitation. Pericardium: Normal pericardium with no significant pericardial effusion. Pleural effusion seen. Aorta: Sinus of valsalva is mildly dilated. Sinus of valsalva 3.60 cm. IVC: Dilated IVC without respiratory collapse consistent with elevated right atrial pressure. Pulmonary Artery: Normal pulmonary artery size. Conclusions: Normal left ventricular systolic function. Normal left ventricular cavity size. Mild concentric left ventricular hypertrophy. Ejection fraction is visually estimated at 55 %. Tissue Doppler/Mitral Doppler indices are consistent with pseudonormalization with mildly elevated left atrial pressure (Stage II diastolic dysfunction), although patient unable to Valsalva. E/E'= 13. Normal appearance of the mitral valve. Mild mitral valve regurgitation. n. Aortic valve not well visualized. Aortic cusps appear mildly calcified. Trileaflet aortic valve. Moderate aortic valve regurgitation. Normal appearance of the tricuspid valve. The estimated Peak RVSP is 48 mmHg. There is mild to moderate tricuspid regurgitation. Dilated IVC without respiratory collapse consistent with elevated right atrial pressure. Electronically Signed By: Mary Wilder 2019-06-19 16:46:44 PDT
[2019-06-19] MEDS ORDERED: SOD CHLORIDE 0.9% IV STA (20:17)
[2019-06-19] MEDS ORDERED: PHENYTOIN IV STA (20:17)
[2019-06-19] MEDS ORDERED: PROPOFOL 100 ML IV SCH (20:30)
[2019-06-19] MEDS ORDERED: HYDROmorphONE 1 MG/ML SYG IV ONE (20:30)
--- NOTE | 2019-06-19 20:36 | PN ---
Date/Time of Note Date/Time of Note DATE: 06/19/19 TIME: 20:30 Assessment/Plan VTE Prophylaxis Risk score (from Ns)>0 risk: 7 SCD applied (from Ns): Yes Pharmacological prophylaxis: other (per cardiology) Lines/Catheters IV C[facility]ter Type (from [facility]): Mid Line Urinary Cath still in place: Yes Reason Cath still needed: urinary retention Assessment/Plan Result Diagram: 06/19/19 0430 06/19/19 0430 Results 24hrs Laboratory Tests Test 06/18/19 22:20 06/19/19 00:47 06/19/19 04:30 06/19/19 05:00 Bedside Glucose 141 156 White Blood Count 7.9 Red Blood Count 2.28 L Hemoglobin 6.7 *L Hematocrit 22.2 L Mean Corpuscular 97.4 Volume Mean Corpuscular 29.4 Hemoglobin Mean Corpuscular 30.2 L Hemoglobin Concen t Red Cell 16.2 H Distribution Width Platelet Count 265 Mean Platelet 10.6 H Volume Immature 1.900 H Granulocytes % Neutrophils % 50.4 Lymphocytes % 27.7 Monocytes % 13.9 H Eosinophils % 5.6 Basophils % 0.5 Nucleated Red 0.0 Blood Cells % Immature 0.150 H Granulocytes # Neutrophils # 4.0 Lymphocytes # 2.2 Monocytes # 1.1 H Eosinophils # 0.4 Basophils # 0.0 Nucleated Red 0.0 Blood Cells # Sodium Level 148 H Potassium Level 3.4 L Chloride Level 118 H Carbon Dioxide 27 Level Anion Gap 3 L Blood Urea 24 H Nitrogen Creatinine 1.24 Est Glomerular Filtrat Rate mL/min Glucose Level 115 Hemoglobin A1c 5.6 Calcium Level 8.4 Phosphorus Level 2.7 Magnesium Level 1.8 Total Bilirubin 0.3 Direct Bilirubin 0.00 Indirect 0.3 Bilirubin Aspartate Amino 62 H Transf (AST/SGOT) Alanine 51 Aminotransferase (ALT/SGPT) Alkaline 121 Phosphatase Total Protein 7.2 Albumin 2.7 L Globulin 4.50 H Albumin/Globulin 0.60 Ratio Random Cortisol 10.0 Blood Gas Blood arterial Specimen Source Arterial Blood 06/19/2019 5:02:1 Date Drawn 9 AM Arterial Blood pH 7.420 (Temp corrected) Arterial Blood 38.8 pCO2 (Temp correct) Arterial Blood 106.1 H pO2 (Temp corrected) Arterial Blood 24.6 HCO3 Arterial Blood 0.2 Base Excess Arterial Blood 97.8 Oxygen Saturation Shaw Test ACCEPTAB Arterial Blood Right Radial Gas Puncture Site Arterial 0 Blood Carboxyhemo globin Arterial Blood 0.4 Methemoglobin Blood Gas A-a O2 62.2 H Differential Oxyhemoglobin 97.4 Percent Blood Gas 37.0 Temperature Blood Gas 14.0 Respiration Rate Blood Gas Actual 15 Respiration Rate Blood Gas VENT - AC Modality FiO2 30.0 Blood Gas Tidal 500.0 Volume Blood Gas Low 5.0 PEEP Setting Blood Gas Notified Whom Blood Gas 06/19/2019 5:10:0 Notified Time 6 AM Test 06/19/19 06:05 06/19/19 13:43 06/19/19 15:55 06/19/19 16:35 Bedside Glucose 105 83 Creatine Kinase 26 Random Cortisol 9.2 29.5 Test 06/19/19 17:04 Random Cortisol 34.9 Subjective 24 Hr Interval Summary Free Text/Dictation Patient underwent an EEG which showed nonconvulsive status epilepticus. The patient is already on keppra 1500 mg IV q12 and on versed drip. Dr. Cordoba the neurologist requested to transfer the patient to higher level of care to a facility which is capable to perform continuous EEG monitoring. In the meantime 1g of IV Dilantin will be given. The patient will likely need to be started on Phenobarbital and levels needs to be checked. I discussed the above with RN, and placed a request for such transfer. Exam/Review of Systems Exam Vitals Vital Signs Date Temp Pulse Resp B/P (MAP) Pulse Ox O2 O2 Flow FiO2 Time Delivery Rate 06/19/19 58 16 135/58 100 20:00 (83) 06/19/19 98.8 Mechanical 19:00 Ventilator 06/19/19 30 16:56 Intake and Output 06/18/19 06/18/19 06/19/19 1515:00 23:00 07:00 IntakeIntake Total 763.66 ml 1118.0 ml OutputOutput Total 560 ml BalanceBalance 763.66 ml 558.0 ml Results Results 24hrs Laboratory Tests Test 06/18/19 22:20 06/19/19 00:47 06/19/19 04:30 06/19/19 05:00 Bedside Glucose 141 156 White Blood Count 7.9 Red Blood Count 2.28 L Hemoglobin 6.7 *L Hematocrit 22.2 L Mean Corpuscular 97.4 Volume Mean Corpuscular 29.4 Hemoglobin Mean Corpuscular 30.2 L Hemoglobin Concen t Red Cell 16.2 H Distribution Width Platelet Count 265 Mean Platelet 10.6 H Volume Immature 1.900 H Granulocytes % Neutrophils % 50.4 Lymphocytes % 27.7 Monocytes % 13.9 H Eosinophils % 5.6 Basophils % 0.5 Nucleated Red 0.0 Blood Cells % Immature 0.150 H Granulocytes # Neutrophils # 4.0 Lymphocytes # 2.2 Monocytes # 1.1 H Eosinophils # 0.4 Basophils # 0.0 Nucleated Red 0.0 Blood Cells # Sodium Level 148 H Potassium Level 3.4 L Chloride Level 118 H Carbon Dioxide 27 Level Anion Gap 3 L Blood Urea 24 H Nitrogen Creatinine 1.24 Est Glomerular Filtrat Rate mL/min Glucose Level 115 Hemoglobin A1c 5.6 Calcium Level 8.4 Phosphorus Level 2.7 Magnesium Level 1.8 Total Bilirubin 0.3 Direct Bilirubin 0.00 Indirect 0.3 Bilirubin Aspartate Amino 62 H Transf (AST/SGOT) Alanine 51 Aminotransferase (ALT/SGPT) Alkaline 121 Phosphatase Total Protein 7.2 Albumin 2.7 L Globulin 4.50 H Albumin/Globulin 0.60 Ratio Random Cortisol 10.0 Blood Gas Blood arterial Specimen Source Arterial Blood 06/19/2019 5:02:1 Date Drawn 9 AM Arterial Blood pH 7.420 (Temp corrected) Arterial Blood 38.8 pCO2 (Temp correct) Arterial Blood 106.1 H pO2 (Temp corrected) Arterial Blood 24.6 HCO3 Arterial Blood 0.2 Base Excess Arterial Blood 97.8 Oxygen Saturation Shaw Test ACCEPTAB Arterial Blood Right Radial Gas Puncture Site Arterial 0 Blood Carboxyhemo globin Arterial Blood 0.4 Methemoglobin Blood Gas A-a O2 62.2 H Differential Oxyhemoglobin 97.4 Percent Blood Gas 37.0 Temperature Blood Gas 14.0 Respiration Rate Blood Gas Actual 15 Respiration Rate Blood Gas VENT - AC Modality FiO2 30.0 Blood Gas Tidal 500.0 Volume Blood Gas Low 5.0 PEEP Setting Blood Gas Notified Whom Blood Gas 06/19/2019 5:10:0 Notified Time 6 AM Test 06/19/19 06:05 06/19/19 13:43 06/19/19 15:55 06/19/19 16:35 Bedside Glucose 105 83 Creatine Kinase 26 Random Cortisol 9.2 29.5 Test 06/19/19 17:04 Random Cortisol 34.9 Medications Medication Current Medications Acetaminophen (Tylenol Liquid) 650 mg Q4H PRN GTB MILD PAIN(1-3)OR ELEVATED TEMP; Start 06/18/19 at 18:00 Eye Lubricant (Artificial Tears Oph) 2 drop DAILY BOTH EYES Last administered on 06/19/19at 09:39; Admin Dose 2 DROP; Start 06/19/19 at 09:00 Ascorbic Acid (Vitamin C) 250 mg DAILY GTB Last administered on 06/19/19 09:37; Admin Dose 250 MG; Start 06/19/19 at 09:00 Aspirin (Aspirin) 81 mg DAILY GTB Last administered on 06/19/19 09:37; Admin Dose 81 MG; Start 06/19/19 at 09:00 Atorvastatin Calcium (Lipitor) 10 mg HS GTB Last administered on 06/18/19 21:28; Admin Dose 10 MG; Start 06/18/19 at 21:00 Aztreonam 50 ml @ 100 mls/hr Q8 IVPB Last administered on 06/19/19at 15:46; Admin Dose 100 MLS/HR; Start 06/18/19 at 22:00 Bisacodyl (Dulcolax Supp) [address] CONSTIPATION; Start 06/18/19 at 18:00 Carvedilol (Coreg) 6.25 mg BID GTB ; Start 06/18/19 at 21:00 Chlorhexidine Gluconate (Peridex) 15 ml BID MT Last administered on 06/19/19at 0 9:37; Admin Dose 15 ML; Start 06/18/19 at 21:00 Dextrose/Sodium Chloride 1,000 ml @ 100 mls/hr Q10H IV Last administered on 06/19/19at 15:52; Admin Dose 100 MLS/HR; Start 06/18/19 at 18:30 Diltiazem HCl (Cardizem) 30 mg Q8 GTB ; Start 06/18/19 at 22:00 Famotidine (Pepcid) 20 mg HS GTB Last administered on 06/18/19at 21:28; Admin Dose 20 MG; Start 06/18/19 at 21:00 Finasteride (Proscar) 5 mg DAILY GTB Last administered on 06/19/19at 09:38; Admin Dose 5 MG; Start 06/19/19 at 09:00 Folic Acid (Folic Acid) 1 mg DAILY GTB Last administered on 06/19/19 09:37; Admin Dose 1 MG; Start 06/19/19 at 09:00 Heparin Sodium (Porcine) (Heparin (5000 Units/1ml)) 5,000 unit BID SC ; Start 06/18/19 at 21:00; Status Hold Lactulose (Enulose) 30 gm Q8 GTB ; Start 06/18/19 at 22:00; Status Hold Levetiracetam 100 ml @ 400 mls/hr Q12 IVPB Last administered on 06/19/19at 12:08; Admin Dose 400 MLS/HR; Start 06/18/19 at 21:00 Loratadine (Claritin) 10 mg DAILY GTB Last administered on 06/19/19at 09:38; Admin Dose 10 MG; Start 06/19/19 at 09:00 Lorazepam (Ativan) 0.5 mg Q4H PRN GTB ANXIETY; Start 06/18/19 at 18:30 Lorazepam (Ativan) 2 mg Q3H PRN IV SEIZURES; Start 06/18/19 at 18:30 Magnesium Hydroxide (Milk Of Mag) 30 ml DAILY PRN GTB CONSTIPATION; Start 06/18/19 at 18:30 Multivitamins/ Minerals (Theragran-M) 1 tab DAILY GTB Last administered on 06/19/19at 09:37; Admin Dose 1 TAB; Start 06/19/19 at 09:00 Ondansetron HCl (Zofran Inj) 4 mg Q6H PRN IV NAUSEA AND/OR VOMITING; Start 06/18/19 at 18:30 Vancomycin HCl (Vanco Iv Per Pharmacy) VANCOMYCIN PER PHARMACY PER PROTOCOL XX ; Start 06/18/19 at 18:30 Vancomycin HCl 1.25 gm/Dextrose 250 ml @ 83.333 mls/ hr Q36H IVPB Last administered on 06/18/19at 21:27; Admin Dose 83.333 MLS/HR; Start 06/18/19 at 20:00 Midazolam HCl 50 ml @ 1 mls/hr TITRATE IV Last administered on 06/18/19at 21:27; Admin Dose 1 MLS/HR; Start 06/18/19 at 20:00 Fentanyl 100 ml @ 2.5 mls/hr TITRATE IV Last administered on 06/18/19at 21:30; Admin Dose 2.5 MLS/HR; Start 06/18/19 at 20:00 Liothyronine Sodium (Cytomel) 5 mcg DAILY GTB Last administered on 06/19/19at 09:38; Admin Dose 5 MCG; Start 06/19/19 at 09:00 Diagnostic Test (Pha) (Accu-Chek) 1 ea Q6 XX Last administered on 06/19/19at 19:00; Admin Dose 1 EA; Start 06/19/19 at 00:00; Stop 06/20/19 at 23:59 Albuterol (Ventolin Hfa) 4 puff Q4H RESP THERAPY INH Last administered on 06/19/19at 16:56; Admin Dose 4 PUFF; Start 06/19/19 at 01:00 Ipratropium [place] (Atrovent Hfa) 4 puff Q4H RESP THERAPY INH Last adm inistered on 06/19/19at 16:56; Admin Dose 4 PUFF; Start 06/19/19 at 01:00 Levothyroxine Sodium (Synthroid) 150 mcg DAILY@06 GTB ; Start 06/20/19 at 06:00 Colistimethate Sodium (Colistin Inhal) 75 mg BID RESP THERAPY NEB ; Start 06/19/19 at 12:30 Miscellaneous Information (*Rx Drug Level Order Reminder*) VANCO TROUGH @ 0,700 0700 ONCE XX ; Start 06/20/19 at 07:00; Stop 06/20/19 at 07:01 Hydromorphone HCl (Dilaudid) 1 mg ONCE ONCE IV ; Start 06/19/19 at 20:30; Stop 06/19/19 at 20:31 Phenytoin 1000 mg/ Sodium Chloride 170 ml @ 180 mls/hr ONCE STAT IV ; Start 06/19/19 at 20:17; Stop 06/19/19 at 21:13 GLORIA KWON MD Jun 19, 2019 20:36
[2019-06-19] MEDS: ATORVASTATIN 10 MG TAB GTB SCH (20:48)
[2019-06-19] MEDS: FAMOTIDINE 20 MG TAB GTB SCH (20:49)
[2019-06-19] MEDS ORDERED: MAGNESIUM SULFATE 2 GM/50 ML 50 ML IVPB ONE (21:00)
--- NOTE | 2019-06-19 21:00 | DS ---
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 He was recently treated at [facility] for pneumonia and UTI. He was found to have ileus as well. The patient was then deemed stable and transferred to [facility]. During his stay he was given IV antibiotics and was seen by multiple physicians. He was started on IV synthroid as well as his TSH was elevated to 160 despite oral synthroid. Unfortunatly the patient had a seizure and noted with right sided weakness. A concern for CVA and or medication induced seizure was a concern as well. Keppra IV was started as well as PRN IV ativan. EEG confirmed ongoing seizures and he was transferred to [facility] ICU. Versed drip was started as well. Endocrine started treatment for myxedema coma. Also another EEG showed ongoing seizures, non convulsive. IV dilantin was added and request to transfer to higher level of care. The patient also received 1 unit of PRBC due to severe anemia. Patient remains sedated in gaurded condition, CT of the brain and angio of head and neck were non diagnostic. MRI is pending as it was impossible to perform in patient current condition. Primary Care Provider Gloria Rdz MD Pending Labs Laboratory Tests Test 06/18/19 22:20 06/19/19 00:47 06/19/19 04:30 06/19/19 05:00 Bedside 141 156 Glucose mg/dL (70-220) mg/dL (70-220) White Blood 7.9 Count 10^3/ul (4.8-1 0.8) Red Blood 2.28 Count 10^6/ul (4.70- 6.10) Hemoglobin 6.7 g/dl (14.0-18. 0) Hematocrit 22.2 % (42.0-52.0) Mean 97.4 Corpuscular fl (82.0-101.0 Volume ) Mean 29.4 Corpuscular pg (29.0-33.0) Hemoglobin Mean 30.2 Corpuscular g/dl (32.0-37. Hemoglobin Conc 0) ent Red Cell 16.2 Distribution % (11.5-14.5) Width Platelet Count 265 10^3/UL (140-4 15) Mean Platelet 10.6 Volume fl (7.4-10.4) Immature 1.900 Granulocytes % % (0.001-0.429 ) Neutrophils % 50.4 % (39.0-77.0) Lymphocytes % 27.7 % (15.0-51.0) Monocytes % 13.9 % (0.0-11.0) Eosinophils % 5.6 % (0.0-7.0) Basophils % 0.5 % (0.0-2.0) Nucleated Red 0.0 Blood Cells % /100WBC (0.0-0 .0) Immature 0.150 Granulocytes # 10^3/ul (0.0-0 .031) Neutrophils # 4.0 10^3/ul (1.6-7 .5) Lymphocytes # 2.2 10^3/ul (0.8-2 .9) Monocytes # 1.1 10^3/ul (0.3-0 .9) Eosinophils # 0.4 10^3/ul (0.0-0 .5) Basophils # 0.0 10^3/ul (0.0-0 .1) Nucleated Red 0.0 Blood Cells # 10^3/ul (0.0-0 .0) Sodium Level 148 mmol/L (135-14 4) Potassium 3.4 Level mmol/L (3.5-5. 1) Chloride Level 118 mmol/L (97-110 ) Carbon Dioxide 27 Level mmol/L (21-31) Anion Gap 3 (5-13) Blood Urea 24 Nitrogen mg/dl (7-20) Creatinine 1.24 mg/dl (0.61-1. 24) Est Glomerular mL/min (>60) Filtrat Rate mL/min Glucose Level 115 mg/dl (70-220) Hemoglobin A1c 5.6 % (0-5.9) Calcium Level 8.4 mg/dl (8.4-10. 2) Phosphorus 2.7 Level mg/dl (2.5-4.9 ) Magnesium 1.8 Level mg/dl (1.7-2.5 ) Total 0.3 Bilirubin mg/dl (0.2-1.3 ) Direct 0.00 Bilirubin mg/dl (0.00-0. 20) Indirect 0.3 Bilirubin mg/dl (0-1.1) Aspartate Amino 62 Transf (AST/SGO IU/L (15-46) T) Alanine 51 Aminotransferas IU/L (13-69) e (ALT/SGPT) Alkaline 121 Phosphatase IU/L (42-121) Total Protein 7.2 g/dl (6.1-8.1) Albumin 2.7 g/dl (3.3-4.9) Globulin 4.50 g/dl (1.3-3.2) Albumin/Globuli 0.60 n Ratio Random Cortisol 10.0 ug/dl Blood Gas Blood arterial Specimen Source Arterial Blood 06/19/2019 5:02 Date Drawn :19 AM Arterial Blood 7.420 (7.350-7 pH .450) (Temp corrected ) Arterial Blood 38.8 pCO2 mmhg (35-45) (Temp correct) Arterial Blood 106.1 pO2 mmHG (80-90.0) (Temp corrected ) Arterial Blood 24.6 HCO3 mmol/L (22.0-2 6.0) Arterial Blood 0.2 Base Excess mmol/L (-3.0-3 ) Arterial Blood 97.8 Oxygen Saturati mmHG (95.0-100 on .0) Shaw Test ACCEPTAB Arterial Blood Right Radial Gas Puncture Site Arterial 0 % (0.0-3.0) Blood Carboxyhe moglobin Arterial Blood 0.4 Methemoglobin % (0.0-1.5) Blood Gas A-a 62.2 O2 mmHg (7.0-24.0 Differential ) Oxyhemoglobin 97.4 Percent % (93.0-99.0) Blood Gas 37.0 C Temperature Blood Gas 14.0 Respiration Rate Blood Gas 15 Actual Respiration Rat e Blood Gas VENT - AC Modality FiO2 30.0 % Blood Gas Tidal 500.0 mL Volume Blood Gas Low 5.0 cmH2O PEEP Setting Blood Gas Notified Whom Blood Gas 06/19/2019 5:10 Notified Time :06 AM Test 06/19/19 06:05 06/19/19 13:43 06/19/19 15:55 06/19/19 16:35 Bedside 105 83 Glucose mg/dL (70-220) mg/dL (70-220) Creatine 26 Kinase IU/L (23-200) Random Cortisol 9.2 ug/dl 29.5 ug/dl Test 06/19/19 17:00 06/19/19 17:04 Phenytoin < 3.0 (Dilantin) ug/ml (10.0-20. Level 0) Random Cortisol 34.9 ug/dl GLORIA RDZ MD Jun 19, 2019 20:59
[2019-06-19] MEDS ORDERED: HYDROCORTISONE 100 MG INJ IV SCH (22:00)
[2019-06-20] VITALS (23 sets, daily range): BP systolic 99–143; BP diastolic 44–86; PULSE 47–56; RESP 14–22
[2019-06-20] MEDS: ACCU-CHEK XX SCH
[2019-06-20] MEDS: DEXTROSE 5%-0.225% NACL 1,000 ML IV SCH (00:05)
[2019-06-20] MEDS: ALBUTEROL HFA 8 GM INHALER INH SCH (01:26)
[2019-06-20] MEDS: IPRATROPIUM (HFA) 12.9 GM INHALER INH SCH (01:26)
[2019-06-20] MEDS ORDERED: LEVOTHYROXINE 150 MCG TAB GTB SCH (06:00)
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
--- NOTE | 2019-06-21 07:34 | PN ---
DATE: 06/19/2019 SUBJECTIVE: Appreciate Dr. Ortega input regarding patient's thyroid disorder. I appreciate GI, neuro logy and cardiology input. Pulmonary to follow as well. The patient remains sedated on fentanyl and Versed. Noted drop in hemoglobin to 6.7. The patient has been treated with aggressive treatment fo r his hypothyroidism, and by Dr. Ortega. The patient remains in bradycardia. Again, no concerns of m yxemia coma and acute CVA. OBJECTIVE: VITAL SIGNS: Temperature 98.3, pulse is 43, respirations 15, blood pressure 146/49, saturation 99% o n 30% FIO2. Patient is a FULL ventilatory support on AC mode. GENERAL: The patient is currently not responding, but sedated. CARDIOVASCULAR: S1 and S2, bradycardic. LUNGS: Decreased bilaterally. ABDOMEN: Soft, slightly distended. EXTREMITIES: No clubbing, cyanosis, or edema. SKIN: Some skin wounds were noted. G-tube in place. LABORATORY DATA: Done this morning shows a white count of 7.9, hemoglobin 6.7, hematocrit 22, platel et count 265, neutrophils 50%, 28%. ESR was 129, high. Sodium 148, potassium 3.4, chloride 11 9, bicarbonate 27, BUN is 24, creatinine 1.24, glucose of 115. Patient's hemoglobin A1c is 5.6. Ran dom cortisol was 10 this morning which is still normal range. The patient's TSH was 116 and free T4 was 0.85. CRP 2.3, alkaline phosphatase 130, albumin 3.0. Hepatitis B and C were negative. HIV als o was negative at outside hospital. MEDICATIONS: 1. Synthroid 150 mcg daily. 2. Colistin b.i.d. nebulizer. 3. Eye lubricants daily. 4. Vitamin C 250 daily. 5. Aspirin 81 mg daily. 6. Proscar 5 mg daily. 7. Folic acid 1 mg daily. 8. Claritin 10 mg daily. 9. Multivitamin 1 tab daily. 10. Cytomel 5 mg via G-tube daily. 11. Ventolin q.4h. 12. Atrovent every 4 hours. 13. Accu-Chek as directed. 14. Aztreonam. 15. Cardizem 30 mg q.8h. on hold. 16. Lipitor 10 mg at bedtime. 17. Coreg 6.25 b.i.d. on hold. 18. Peridex 15 mL b.i.d. 19. Pepcid 20 at bedtime. 20. Keppra supposed to be on 1500 b.i.d. 21. Midazolam as directed. 22. D5, 1/4, 100 mL an hour. 23. Ativan as directed. 24. Zofran as directed. 25. Vancomycin dose per pharmacy. ASSESSMENT AND PLAN: This is an unfortunate 88-year-old man with history of diabetes christina multani, controlled, disease, atrial fibrillation, dysphagia, G-tube feeding, ventilatory dependent respiratory failure, pleural effusion, who presented with leukocytosis, renal failure, anemia and pn eumonia. 1. Respiratory. The patient's chest x-ray which was done shows left lung base opacification that ma y represent pleural effusion, infiltrate or atelectasis. Also, cardiomegaly is seen. The patient is currently on antibiotics per ID. White count is normal. Continue full ventilatory support in a pat ient who is encephalopathic, not a candidate for weaning. 2. Cardiovascular. Patient with history of atrial fibrillation with more of bradycardia syndrome. Management per cardiology. Would hold beta blockers. Cardizem, hypothyroidism. Anticoagulatio n per Dr. Wilder. Currently on aspirin. 3. Encephalopathy. Differential diagnosis includes myxedema coma, medication induced versus acute C [facility]. Awaiting MRI of the brain. Continue supportive care. Continue anti-seizure medications with Ke ppra and Versed. I appreciate neurology input. 4. Dysphagia. Continue G-tube feeding. GI is following. Monitor for residual. 5. Anemia, drop in hemoglobin, we will transfuse 1 unit of PRBC. 6. Acute renal insufficiency, improved with above hydration. May decrease rate of IV fluids for now . 7. Infectious disease. Further antibiotics per Dr. Kang. 8. Hypothyroidism, possible myxedema coma. The patient has been treated with IV Synthroid and oral supplements as well. Appreciate Dr. Ortega input and recommendations. 9. Diabetes mellitus, controlled. Hemoglobin A1c is 5.6. 10. The patient is FULL CODE. CONDITION: Guarded. Benign prostatic hypertrophy, on Proscar. The patient appears to be otherwise comfortable. We will follow. Dictated By: GLORIA KAN/ADENIKE Conf#: [id number] [facility]#: [id number]
== END 2019-06-20 05:05 | disposition short-term general hospital (02) | DRG 100 ==
LOC: ICU 16:30
PROVIDERS: ADMIT Internal Medicine; ATTEND Internal Medicine
PROC: 5A1945Z Respiratory Ventilation, 24-96 Consecutive Hours (ICD-10-PCS; principal; 2019-06-18)
PROC: 30233N1 Transfusion of Nonautologous Red Blood Cells into Peripheral Vein, Percutaneous Approach (ICD-10-PCS; 2019-06-19)
DX: G40.901 Epilepsy, unspecified, not intractable, with status epilepticus (principal); E03.5 Myxedema coma; G93.49 Other encephalopathy; J96.10 Chronic respiratory failure, unspecified whether with hypoxia or hypercapnia; E87.0 Hyperosmolality and hypernatremia; N17.9 Acute kidney failure, unspecified; Z99.11 Dependence on respirator [ventilator] status; G81.91 Hemiplegia, unspecified affecting right dominant side; D64.9 Anemia, unspecified; R13.19 Other dysphagia; E03.9 Hypothyroidism, unspecified; E78.5 Hyperlipidemia, unspecified; E11.9 Type 2 diabetes mellitus without complications; K21.9 Gastro-esophageal reflux disease without esophagitis; I48.0 Paroxysmal atrial fibrillation; Z93.1 Gastrostomy status; J44.9 Chronic obstructive pulmonary disease, unspecified; Z93.0 Tracheostomy status; E86.0 Dehydration; I12.9 Hypertensive chronic kidney disease with stage 1 through stage 4 chronic kidney disease, or unspecified chronic kidney disease; N18.3 Chronic kidney disease, stage 3 (moderate); N40.0 Benign prostatic hyperplasia without lower urinary tract symptoms; E87.6 Hypokalemia; E11.22 Type 2 diabetes mellitus with diabetic chronic kidney disease
CPT/HCPCS: 36430; 36600; 70450; 71045; 80053; 80185; 82330; 82533; 82550; 82803; 82962; 83036; 83735; 84100; 84439; 84443; 85025; 85651; 86140; 86803; 86850; 86900; 86901; 86920; 87081; 87086; 87340; 93306; 94002; 94003; 94640; 95819; J1165; J1953; J2250; J3010; J3370; J3475; J7060; J7070; P9016

== ENCOUNTER 2019-06-22 17:13 | Inpatient (IN) | payer MEDICARE, OTHER ==
[~2019-06-22] VITALS: Ht 167.6 cm; Wt 71.8 kg
[2019-06-23] VITALS (17 sets, daily range): BP systolic 109–177; BP diastolic 50–73; PULSE 62–71; RESP 18–31; Ht 167.6 cm; Wt 71.8 kg
[2019-06-23] MEDS ORDERED: TOBRAMYCIN IV PER PHARMACY XX SCH (03:30)
[2019-06-23] MEDS ORDERED: MAGNESIUM OXIDE 400 MG TAB GTB PRN (03:30)
[2019-06-23] MEDS ORDERED: PENDING SANTYL ORDER FOR WOUND CARE XX PRN (03:30)
[2019-06-23] MEDS ORDERED: BISACODYL (EC) 5 MG TAB PO PRN (03:30)
[2019-06-23] MEDS ORDERED: ACETAMINOPHEN 650MG/20.3ML CUP GTB PRN (03:30)
[2019-06-23] MEDS ORDERED: ALBUTEROL SULFATE INHALATION PRN (03:30)
[2019-06-23] MEDS ORDERED: ONDANSETRON 4 MG INJ IV PRN (03:30)
[2019-06-23] MEDS ORDERED: GLUCOSE GEL 15 GRAM TUBE PO PRN ×2 (04:00)
[2019-06-23] MEDS ORDERED: GLUCAGON 1 MG INJ IM PRN (04:00)
[2019-06-23] MEDS ORDERED: MAGNESIUM HYDROXIDE 30ML CUP PO PRN (04:00)
[2019-06-23] MEDS ORDERED: DEXTROSE 50% 50 ML SYRINGE IV PRN ×2 (04:00)
[2019-06-23] MEDS ORDERED: GLUCOSE GEL 15 GRAM TUBE BUCCAL PRN (04:00)
[2019-06-23] MEDS: INSULIN ASPART [NOVOLOG] 3 ML PEN SC SCH ×4 (05:18→23:20)
[2019-06-23] MEDS: DILTIAZEM 60 MG TAB GTB SCH ×3 (05:18→22:56)
[2019-06-23] MEDS: TOBRAMYCIN 320 MG in SOD CHLORIDE 0.9% 100 ML IVPB SCH (05:25)
[2019-06-23] MEDS ORDERED: ALBUTEROL HFA 8 GM INHALER INH PRN (06:00)
[2019-06-23] MEDS ORDERED: LEVOTHYROXINE 150 MCG TAB PO SCH (07:00)
[2019-06-23] MEDS ORDERED: LIOTHYRONINE 5 MCG TAB PO SCH (09:00)
[2019-06-23] MEDS ORDERED: LEVETIRACETAM 500 MG IV SCH (09:00)
[2019-06-23] MEDS: ASCORBIC ACID 250 MG TAB GTB SCH (09:13)
[2019-06-23] MEDS: CHLORHEXIDINE GLUCONATE 15 ML UD CUP MM SCH ×2 (09:13→21:22)
[2019-06-23] MEDS: LORATADINE 10 MG TAB GTB SCH (09:13)
[2019-06-23] MEDS: FOLIC ACID 1 MG TAB GTB SCH (09:14)
[2019-06-23] MEDS: MULTIVITAMINS THERAPEUTIC TAB PO SCH (09:14)
[2019-06-23] MEDS: FINASTERIDE 5 MG TAB GTB SCH (09:14)
[2019-06-23] MEDS: ASPIRIN 81 MG TAB GTB SCH (09:19)
[2019-06-23] MEDS: LEVETIRACETAM 1000 MG (PMX) 100 ML IVPB SCH ×2 (09:19→21:23)
[2019-06-23] MEDS: COLISTIMETHATE (25 MG/ML INHAL SYG) INH SCH ×2 (09:55→20:07)
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
[2019-06-23] MEDS ORDERED: hydrALAzine 20 MG INJ IV PRN (15:30)
[2019-06-23] MEDS: LORAZEPAM 2 MG INJ IV PRN ×2 (16:37→21:21)
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
[2019-06-23] MEDS: FAMOTIDINE 20 MG TAB GTB SCH (21:22)
[2019-06-23] MEDS: ATORVASTATIN 10 MG TAB GTB SCH (21:23)
[2019-06-24] VITALS (16 sets, daily range): BP systolic 104–145; BP diastolic 50–64; PULSE 51–70; RESP 16–30
[2019-06-24] MEDS: ACCU-CHEK XX SCH (02:00)
[2019-06-24] MEDS: LORAZEPAM 2 MG INJ IV PRN ×3 (02:55→21:51)
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
[2019-06-24] MEDS: INSULIN ASPART [NOVOLOG] 3 ML PEN SC SCH ×3 (06:00→18:00)
[2019-06-24] MEDS: DILTIAZEM 60 MG TAB GTB SCH ×3 (06:17→21:52)
[2019-06-24] MEDS: LEVOTHYROXINE 150 MCG TAB PEG SCH (06:42)
--- NOTE | 2019-06-24 08:44 | CONS ---
Assessment/Plan Assessment/Plan Hospital Course (Demo Recall) Seizure with status epilepticus: resolved now. Marked sinus bradycardia appears to be related to medication as well as mostly related to severe hypothyroidism: improved now Respiratory failure status post tracheostomy vent dependent Hypertension History of paroxysmal atrial fibrillation; currently in NSR Anemia Encephalopathy HX OF Multiple infections/ sepsis urinary tract infection and pneumonia History of diabetes Renal insufficiency COPD History of dysphagia and ileus dyslipidemia Severe thyroid disorder Recommendations: Neuro work-up and treatment as per internal medicine and neurology consultation Thyroid management as per internal medicine and endocrine consultation. Vent support will be continued Transfusions as needed off amiodarone due to his severe thyroid d/o Continue with Coreg with holding parameters Thank you for his referral. We will continue to follow along with you MARY JEAN BAPTISTE MD [facility] Consultation Date/Type/Reason Admit Date/Time Jun 23, 2019 at 00:53 Date of Consultation: Jun 24, 2019 Type of Consult Cardiology Reason for Consultation afib Requesting Provider: GLORIA KWON MD Date/Time of Note DATE: 06/24/19 TIME: 08:36 Hx of Present Illness Interventional cardiology consultation note Chief complaint: resp failrue. seizure. Reason for consult: Paroxysmal atrial fibrillation, hypertension, bradycardia History of present illness: Thank you for this referral. History was obtained from review of the chart r discussion with staff and physicians. Patient also known to me from previous admission to hospital. This is a 88-year-old gentleman with multiple complicated medical history who was transferred to our hospital for respiratory care. Patient was initially admitted to ICU week ago for status epilepticus appeared to be transferred to [facility]. Patient has been stable has been transferred back to her facility. Review of the use of the chart for the patient has been ruled out for acute stroke. His seizure has improved and transferred to facility patient has a history of pacemaker placement currently has remained sinus rhythm. Patient has been bradycardic intermittently which is slowly improving with replacement of his medication Patient is nonverbal is unable to provide any history to me Allergies: Penicillin, cefepime Medications were reviewed as per medical reconciliation sheet Family history: No reported history early coronary artery disease Social history: Patient has been single and has no kids. Apparently he is an ex-smoker but detail is not clear Past medical history: Paroxysmal atrial fibrillation per old record thyroid disorder with severe hypothyroidism diabetes gastroesophageal reflux disease anemia COPD hypertension questionable history of CVA in the past. History of recurrent pleural effusion BPH. Especially failure status post tracheostomy vent dependent since June 2017. Renal failure in the past. History of dysphagia status post G-tube placement. Has been at some point on TPN has been due to ileus Review of system: Patient denies all others except for above-mentioned Past Medical History Home Meds Reported Medications Levetiracetam* (Keppra*) 500 Mg/5 Ml Solution, 1000 MG IVPB BID, BOTTLE 06/23/19 Magnesium Hydroxide (Milk of Magnesia) 2,400 Mg/10 Ml Oral.susp, 400 MG GTB PRN for CONSTIPATION 06/23/19 Colistimethate Sodium (Coly-Mycin M) 150 Mg Soln, 75 MG IJ 06/23/19 Diltiazem Hcl (Cardizem) 60 Mg Tablet, 30 MG PO Q8, #120 TAB 06/23/19 Chlorhexidine Gluconate (Peridex) 473 Ml Mouthwash, 15 ML MM BID, BOTTLE 06/23/19 Acetaminophen* (Acetaminophen* Susp) 325 Mg/10.15 Ml Solution, 650 MG GTB Q4H PRN for PAIN OR TEMP ABOVE 38C, ML 06/23/19 Ondansetron Hcl* (Zofran*) 4 Mg Tab, 4 MG IVP Q6H PRN for NAUSEA AND OR VOMITING, TAB 06/23/19 Multivitamins* (Theragran*) 1 Tab Tab, 1 TAB PO DAILY, TAB 06/23/19 Lorazepam* (Ativan*) 2 Mg Tablet, 2 MG IVP Q3H PRN for SEIZURES, #60 TAB 06/23/19 Lorazepam* (Lorazepam*) 0.5 Mg Tablet, 0.5 MG PO Q4 PRN for AGITATION/ANXIETY, TAB 06/23/19 Loratadine* (Loratadine*) 10 Mg Tablet, 10 MG GTB DAILY, #30 TAB 06/23/19 Liothyronine Sodium* (Cytomel*) 5 Mcg Tablet, 5 MCG PO DAILY, TAB 06/23/19 Levothyroxine Sodium* (Levothyroxine Sodium*) 150 Mcg Tablet, 150 MCG PO BEFORE BREAKFAST, #30 TAB 06/23/19 Folic Acid* (Folic Acid*) 1 Mg Tablet, 1 MG GTB DAILY, TAB 06/23/19 Finasteride* (Finasteride*) 5 Mg Tablet, 5 MG GTB DAILY, TAB 06/23/19 Famotidine* (Famotidine*) 20 Mg Tablet, 20 MG GTB QHS, #30 TAB 06/23/19 Carvedilol* (Carvedilol*) 6.25 Mg Tablet, 6.25 MG G-TUBE BID, #60 TAB 06/23/19 Bisacodyl* (Bisacodyl*) 5 Mg Tablet.dr, 10 MG MT DAILY PRN for CONSTIPATION, TAB 06/23/19 Atorvastatin (Atorvastatin) 10 Mg Tablet, 10 MG GTB QHS, #30 TAB 06/23/19 Aspirin* (Aspirin* Chew) 81 Mg Tab.chew, 81 MG GTB DAILY, TAB.CHEW 06/23/19 Ascorbic Acid (Vitamin C) 250 Mg Tab, 250 MG G-TUBE DAILY, TAB 06/23/19 Albuterol Sulfate (Proair Respiclick) 90 Mcg Aer.pow.ba, 4 PUFF INHALATION Q4 PRN for SHORTNESS OF BREATH, #1 BOTTLE 06/23/19 Discontinued Reported Medications Levetiracetam* (Keppra* IV) 500 Mg/5 Ml Soln, 10 MG IVPB Q12, EA DILUTE IN 100 ML NS 06/23/19 Medications Current Medications Acetaminophen (Tylenol Liquid) 650 mg Q4H PRN GTB MILD PAIN(1-3) OR TEMP>38C; Start 06/23/19 at 03:30 Ascorbic Acid (Vitamin C) 250 mg DAILY GTB Last administered on 06/23/19at 09:13; Admin Dose 250 MG; Start 06/23/19 at 09:00 Aspirin (Aspirin) 81 mg DAILY GTB Last administered on 06/23/19at 09:19; Admin Dose 81 MG; Start 06/23/19 at 09:00 Atorvastatin Calcium (Lipitor) 10 mg QHS GTB Last administered on 06/23/19at 21:23; Admin Dose 10 MG; Start 06/23/19 at 21:00 Bisacodyl (Dulcolax) 10 mg DAILY PRN PO CONSTIPATION; Start 06/23/19 at 03:30; Status Hold Chlorhexidine Gluconate (Peridex) 15 ml BID MM Last administered on 06/23/19at 21:22; Admin Dose 15 ML; Start 06/23/19 at 09:00 Colistimethate Sodium (Colistin Inhal) 75 mg BID INH Last administered on 06/23/19at 20:07; Admin Dose 75 MG; Start 06/23/19 at 09:00 Diltiazem HCl (Cardizem) 30 mg Q8 GTB Last administered on 06/24/19at 06:17; Admi n Dose 30 MG; Start 06/23/19 at 06:00 Famotidine (Pepcid) 20 mg QHS GTB Last administered on 06/23/19at 21:22; Admin Dose 20 MG; Start 06/23/19 at 21:00 Finasteride (Proscar) 5 mg DAILY GTB Last administered on 06/23/19at 09:14; Admin Dose 5 MG; Start 06/23/19 at 09:00 Folic Acid (Folic Acid) 1 mg DAILY GTB Last administered on 06/23/19at 09:14; Admin Dose 1 MG; Start 06/23/19 at 09:00 Loratadine (Claritin) 10 mg DAILY GTB Last administered on 06/23/19at 09:13; Admin Dose 10 MG; Start 06/23/19 at 09:00 Lorazepam (Ativan) 0.5 mg Q4H PRN PO AGITATION/ANXIETY; Start 06/23/19 at 03:30 Multivitamins Therapeutic (Theragran) 1 tab DAILY PO Last administered on 06/23/19at 09:14; Admin Dose 1 TAB; Start 06/23/19 at 09:00 Lorazepam (Ativan) 2 mg Q3H PRN IV SEIZURES Last administered on 06/24/19at 06 :42; Admin Dose 2 MG; Start 06/23/19 at 03:30 Ondansetron HCl (Zofran Inj) 4 mg Q6H PRN IV NAUSEA AND/OR VOMITING; Start 06/23/19 at 03:30 Tobramycin (Tobramycin Iv Per Pharmacy) TOBRAMYCIN PER PHARMACY NOTE XX ; Start 06/23/19 at 03:30 Miscellaneous Information (Pending Santyl Order For Wound Care) This patient mcqueen... PRN PRN XX WOUND CARE; Start 06/23/19 at 03:30 Diagnostic Test (Pha) (Accu-Chek) 1 ea 02 XX ; Start 06/24/19 at 02:00 Insulin Aspart (Novolog Insulin Pen) NOVOLOG *MODERATE* ALGORI... Q6 SC ; Start 06/23/19 at 06:00 Miscellaneous Information 1 ea NOTE XX ; Start 06/23/19 at 04:00 Glucose (Glutose) 15 gm Q15M PRN PO DECREASED GLUCOSE; Start 06/23/19 at 04:00 Glucose (Glutose) 22.5 gm Q15M PRN PO DECREASED GLUCOSE; Start 06/23/19 at 04:00 Dextrose (D50w Syringe) 25 ml Q15M PRN IV DECREASED GLUCOSE; Start 06/23/19 at 04:00 Dextrose (D50w Syringe) 50 ml Q15M PRN IV DECREASED GLUCOSE; Start 06/23/19 at 04:00 Glucagon (Glucagen) 1 mg Q15M PRN IM DECREASED GLUCOSE; Start 06/23/19 at 04:00 Glucose (Glutose) 15 gm Q15M PRN BUCCAL DECREASED GLUCOSE; Start 06/23/19 at 04:00 Magnesium Hydroxide (Milk Of Mag) 30 ml DAILY PRN PO CONSTIPATION; Start 06/23/19 at 04:00 Tobramycin 320 mg/ Sodium Chloride 108 ml @ 100 mls/hr Q48H IVPB Last administered on 06/23/19at 05:25; Admin Dose 100 MLS/HR; Start 06/23/19 at 06:00 Levetiracetam 100 ml @ 400 mls/hr Q12 IVPB Last administered on 06/23/19at 21:23; Admin Dose 400 MLS/HR; Start 06/23/19 at 09:00 Albuterol (Ventolin Hfa) 4 puff Q4H RESP THERAPY PRN INH SHORTNESS OF BREATH; Start 06/23/19 at 06:00 Levothyroxine Sodium (Synthroid) 150 mcg BEFORE BREAKFAST PEG Last administered on 06/24/19at 06:42; Admin Dose 150 MCG; Start 06/24/19 at 07:00 Liothyronine Sodium (Cytomel) 5 mcg DAILY PEG ; Start 06/24/19 at 09:00 Carvedilol (Coreg) 12.5 mg BID GTB Last administered on 06/23/19at 22:55; Admin Dose 12.5 MG; Start 06/23/19 at 21:00 Hydralazine HCl (Apresoline) 25 mg TID PO Last administered on 06/23/19at 22:56; Admin Dose 25 MG; Start 06/23/19 at 15:30 Hydralazine HCl (Apresoline) 10 mg Q4H PRN IV sbp >165; Start 06/23/19 at 15:30 Allergies: Coded Allergies: Penicillins (Verified Allergy, Unknown, 06/19/19) cefepime (Verified Allergy, Unknown, unknown, 06/21/19) Past Surgical History Past Surgical Hx: other (Status post tracheostomy; status post PEG tube;) Social History Alcohol Use: none Smoking Status: Never smoker Drug Use: none Exam/Review of Systems Vital Signs Vitals Vital Signs Date Temp Pulse Resp B/P (MAP) Pulse Ox O2 O2 Flow FiO2 Time Delivery Rate 06/24/19 98.6 60 27 123/56 99 Mechanical 08:07 (78) Ventilator 06/24/19 30 05:06 Intake and Output 06/23/19 06/23/19 06/24/19 1515:00 23:00 07:00 IntakeIntake Total 100 ml 1180 ml OutputOutput Total 552 ml BalanceBalance -452 ml 1180 ml Exam Exam General: Elderly cachectic looking gentleman status post tracheostomy on the ventilator HEENT: NC/AT. Eyes are closed NECK: This post tracheostomy. no stridor. CV: Cardiac systolic murmur; no gallop or rubs. PULM: no wheezing . Mild rhonchi. GI: SOFT, NT, ND, post tube feeding Extremity: trace B/L LE edema. no clubbing. neuro: Lethargic, Psych: calm rectal: deferred Labs Result Diagram: 06/24/19 0634 06/24/19 0634 Results 24hrs Laboratory Tests Test 06/23/19 12:21 06/23/19 17:10 06/23/19 17:35 06/23/19 23:18 Bedside Glucose 127 134 123 Random Tobramycin 7.3 Level Test 06/24/19 06:16 06/24/19 06:34 Bedside Glucose 96 White Blood Count 11.7 H Red Blood Count 2.42 L Hemoglobin 7.2 L Hematocrit 23.1 L Mean Corpuscular 95.5 Volume Mean Corpuscular 29.8 Hemoglobin Mean Corpuscular 31.2 L Hemoglobin Concent Red Cell 16.4 H Distribution Width Platelet Count 188 Mean Platelet Volume 11.9 H Immature 0.800 H Granulocytes % Neutrophils % 65.5 Lymphocytes % 14.7 L Monocytes % 14.8 H Eosinophils % 4.1 Basophils % 0.1 Nucleated Red Blood 0.0 Cells % Immature 0.090 H Granulocytes # Neutrophils # 7.7 H Lymphocytes # 1.7 Monocytes # 1.7 H Eosinophils # 0.5 Basophils # 0.0 Nucleated Red Blood 0.0 Cells # Sodium Level 141 Potassium Level 4.9 Chloride Level 109 Carbon Dioxide Level 26 Anion Gap 6 Blood Urea Nitrogen 31 H Creatinine 1.22 Est Glomerular Filtrat Rate mL/min Glucose Level 94 Calcium Level 7.7 L Phosphorus Level 3.3 Magnesium Level 2.2 Medications Medications Current Medications Acetaminophen (Tylenol Liquid) 650 mg Q4H PRN GTB MILD PAIN(1-3) OR TEMP>38C; Start 06/23/19 at 03:30 Ascorbic Acid (Vitamin C) 250 mg DAILY GTB Last administered on 06/23/19at 09:13; Admin Dose 250 MG; Start 06/23/19 at 09:00 Aspirin (Aspirin) 81 mg DAILY GTB Last administered on 06/23/19at 09:19; Admin Dose 81 MG; Start 06/23/19 at 09:00 Atorvastatin Calcium (Lipitor) 10 mg QHS GTB Last administered on 06/23/19at 21:23; Admin Dose 10 MG; Start 06/23/19 at 21:00 Bisacodyl (Dulcolax) 10 mg DAILY PRN PO CONSTIPATION; Start 06/23/19 at 03:30; Status Hold Chlorhexidine Gluconate (Peridex) 15 ml BID MM Last administered on 06/23/19at 21:22; Admin Dose 15 ML; Start 06/23/19 at 09:00 Colistimethate Sodium (Colistin Inhal) 75 mg BID INH Last administered on 06/23/19at 20:07; Admin Dose 75 MG; Start 06/23/19 at 09:00 Diltiazem HCl (Cardizem) 30 mg Q8 GTB Last administered on 06/24/19 06:17; Admin Dose 30 MG; Start 06/23/19 at 06:00 Famotidine (Pepcid) 20 mg QHS GTB Last administered on 06/23/19at 21:22; Admin Dose 20 MG; Start 06/23/19 at 21:00 Finasteride (Proscar) 5 mg DAILY GTB Last administered on 06/23/19at 09:14; Admin Dose 5 MG; Start 06/23/19 at 09:00 Folic Acid (Folic Acid) 1 mg DAILY GTB Last administered on 06/23/19at 09:14; Admin Dose 1 MG; Start 06/23/19 at 09:00 Loratadine (Claritin) 10 mg DAILY GTB Last administered on 06/23/19at 09:13; Admin Dose 10 MG; Start 06/23/19 at 09:00 Lorazepam (Ativan) 0.5 mg Q4H PRN PO AGITATION/ANXIETY; Start 06/23/19 at 03:30 Multivitamins Therapeutic (Theragran) 1 tab DAILY PO Last administered on 06/23/19at 09:14; Admin Dose 1 TAB; Start 06/23/19 at 09:00 Lorazepam (Ativan) 2 mg Q3H PRN IV SEIZURES Last administered on 06/24/19at 06:42; Admin Dose 2 MG; Start 06/23/19 at 03:30 Ondansetron HCl (Zofran Inj) 4 mg Q6H PRN IV NAUSEA AND/OR VOMITING; Start at 03:30 Tobramycin (Tobramycin Iv Per Pharmacy) TOBRAMYCIN PER PHARMACY NOTE XX ; Start 06/23/19 at 03:30 Miscellaneous Information (Pending [facility] Order For Wound Care) This patient mcqueen... PRN PRN XX WOUND CARE; Start 06/23/19 at 03:30 Diagnostic Test (Pha) (Accu-Chek) 1 ea 02 XX ; Start 06/24/19 at 02:00 Insulin Aspart (Novolog Insulin Pen) NOVOLOG *MODERATE* ALGORI... Q6 SC ; Start 06/23/19 at 06:00 Miscellaneous Information 1 ea NOTE XX ; Start 06/23/19 at 04:00 Glucose (Glutose) 15 gm Q15M PRN PO DECREASED GLUCOSE; Start 06/23/19 at 04:00 Glucose (Glutose) 22.5 gm Q15M PRN PO DECREASED GLUCOSE; Start 06/23/19 at 04:00 Dextrose (D50w Syringe) 25 ml Q15M PRN IV DECREASED GLUCOSE; Start 06/23/19 at 04:00 Dextrose (D50w Syringe) 50 ml Q15M PRN IV DECREASED GLUCOSE; Start 06/23/19 at 04:00 Glucagon (Glucagen) 1 mg Q15M PRN IM DECREASED GLUCOSE; Start 06/23/19 at 04:00 Glucose (Glutose) 15 gm Q15M PRN BUCCAL DECREASED GLUCOSE; Start 06/23/19 at 04:00 Magnesium Hydroxide (Milk Of Mag) 30 ml DAILY PRN PO CONSTIPATION; Start 06/23/19 at 04:00 Tobramycin 320 mg/ Sodium Chloride 108 ml @ 100 mls/hr Q48H IVPB Last administered on 06/23/19at 05:25; Admin Dose 100 MLS/HR; Start 06/23/19 at 06:00 Levetiracetam 100 ml @ 400 mls/hr Q12 IVPB Last administered on 06/23/19at 21:2 3; Admin Dose 400 MLS/HR; Start 06/23/19 at 09:00 Albuterol (Ventolin Hfa) 4 puff Q4H RESP THERAPY PRN INH SHORTNESS OF BREATH; Start 06/23/19 at 06:00 Levothyroxine Sodium (Synthroid) 150 mcg BEFORE BREAKFAST PEG Last administered on 06/24/19at 06:42; Admin Dose 150 MCG; Start 06/24/19 at 07:00 Liothyronine Sodium (Cytomel) 5 mcg DAILY PEG ; Start 06/24/19 at 09:00 Carvedilol (Coreg) 12.5 mg BID GTB Last administered on 06/23/19at 22:55; Admin Dose 12.5 MG; Start 06/23/19 at 21:00 Hydralazine HCl (Apresoline) 25 mg TID PO Last administered on 06/23/19at 22:56; Admin Dose 25 MG; Start 06/23/19 at 15:30 Hydralazine HCl (Apresoline) 10 mg Q4H PRN IV sbp >165; Start 06/23/19 at 15:30 MARY JEAN BAPTISTE MD Jun 24, 2019 08:44
[2019-06-24] MEDS: CHLORHEXIDINE GLUCONATE 15 ML UD CUP MM SCH ×2 (08:47→21:51)
[2019-06-24] MEDS: ASPIRIN 81 MG TAB GTB SCH (08:48)
[2019-06-24] MEDS: LIOTHYRONINE 5 MCG TAB PEG SCH (08:48)
[2019-06-24] MEDS: FINASTERIDE 5 MG TAB GTB SCH (08:48)
[2019-06-24] MEDS: LEVETIRACETAM 1000 MG (PMX) 100 ML IVPB SCH ×2 (08:48→22:01)
[2019-06-24] MEDS: FOLIC ACID 1 MG TAB GTB SCH (08:48)
[2019-06-24] MEDS: MULTIVITAMINS THERAPEUTIC TAB PO SCH (08:48)
[2019-06-24] MEDS: ASCORBIC ACID 250 MG TAB GTB SCH (08:48)
[2019-06-24] MEDS: LORATADINE 10 MG TAB GTB SCH (08:51)
[2019-06-24] MEDS: COLISTIMETHATE (25 MG/ML INHAL SYG) INH SCH ×2 (09:00→21:00)
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
--- NOTE | 2019-06-24 11:04 | CONS ---
Assessment/Plan Assessment/Plan Assessment/Plan (Recall) 88 M c/ multiple cerebrovascular risk factors and medical comorbidities, who was initially admitted following recurrent seizures. Now s/p Tx to [facility] for management of status epilepticus.. 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 He was additionally reported to have R arm weakness post-ictally, which in the context of afib off antiplatelet/anticoagulant raised concern for a superimposed acute cerebrovascular process.. Head CT and Head CTA were unrevealing. TTE was unrevealing P: Agree w/ Keppra as ordered Ativan iv prn prolonged seizure or cluster Agree w/ asa/statin daily for stroke prevention Other management and supportive care per primary Will sign off for now; please call w/ adnl questions Consultation Date/Type/Reason Admit Date/Time Jun 23, 2019 at 00:53 Type of Consult Neurology Reason for Consultation seizure Requesting Provider: GLORIA KWON MD Date/Time of Note DATE: 06/24/19 TIME: 10:58 24 HR Interval Summary Free Text/Dictation Tx back from [facility] No seizure recurrent noted Exam/Review of Systems Exam Vitals Vital Signs Date Temp Pulse Resp B/P (MAP) Pulse Ox O2 O2 Flow FiO2 Time Delivery Rate 06/24/19 98.6 60 27 123/56 99 Mechanical 08:07 (78) Ventilator 06/24/19 30 05:06 Intake and Output 06/23/19 06/23/19 06/24/19 1515:00 23:00 07:00 IntakeIntake Total 100 ml 1180 ml OutputOutput Total 552 ml BalanceBalance -452 ml 1180 ml Results Result Diagram: 06/24/19 0634 06/24/19 0634 Results 24hrs Laboratory Tests Test 06/23/19 12:21 06/23/19 17:10 06/23/19 17:35 06/23/19 23:18 Bedside Glucose 127 134 123 Random Tobramycin 7.3 Level Test 06/24/19 06:16 06/24/19 06:34 Bedside Glucose 96 White Blood Count 11.7 H Red Blood Count 2.42 L Hemoglobin 7.2 L Hematocrit 23.1 L Mean Corpuscular 95.5 Volume Mean Corpuscular 29.8 Hemoglobin Mean Corpuscular 31.2 L Hemoglobin Concent Red Cell 16.4 H Distribution Width Platelet Count 188 Mean Platelet Volume 11.9 H Immature 0.800 H Granulocytes % Neutrophils % 65.5 Lymphocytes % 14.7 L Monocytes % 14.8 H Eosinophils % 4.1 Basophils % 0.1 Nucleated Red Blood 0.0 Cells % Immature 0.090 H Granulocytes # Neutrophils # 7.7 H Lymphocytes # 1.7 Monocytes # 1.7 H Eosinophils # 0.5 Basophils # 0.0 Nucleated Red Blood 0.0 Cells # Sodium Level 141 Potassium Level 4.9 Chloride Level 109 Carbon Dioxide Level 26 Anion Gap 6 Blood Urea Nitrogen 31 H Creatinine 1.22 Est Glomerular Filtrat Rate mL/min Glucose Level 94 Calcium Level 7.7 L Phosphorus Level 3.3 Magnesium Level 2.2 Medications Medication Current Medications Acetaminophen (Tylenol Liquid) 650 mg Q4H PRN GTB MILD PAIN(1-3) OR TEMP>38C; Start 06/23/19 at 03:30 Ascorbic Acid (Vitamin C) 250 mg DAILY GTB Last administered on 06/24/19 08:48; Admin Dose 250 MG; Start 06/23/19 at 09:00 Aspirin (Aspirin) 81 mg DAILY GTB Last administered on 06/24/19 08:48; Admin Dose 81 MG; Start 06/23/19 at 09:00 Atorvastatin Calcium (Lipitor) 10 mg QHS GTB Last administered on 06/23/19 21:23; Admin Dose 10 MG; Start 06/23/19 at 21:00 Bisacodyl (Dulcolax) 10 mg DAILY PRN PO CONSTIPATION; Start 06/23/19 at 03:30; Status Hold Chlorhexidine Gluconate (Peridex) 15 ml BID MM Last administered on 06/24/19 08:47; Admin Dose 15 ML; Start 06/23/19 at 09:00 Colistimethate Sodium (Colistin Inhal) 75 mg BID INH Last administered on 06/23/19 20:07; Admin Dose 75 MG; Start 06/23/19 at 09:00 Diltiazem HCl (Cardizem) 30 mg Q8 GTB Last administered on 06/24/19 06:17; Admin Dose 30 MG; Start 06/23/19 at 06:00 Famotidine (Pepcid) 20 mg QHS GTB Last administered on 06/23/19 21:22; Admin Dose 20 MG; Start 06/23/19 at 21:00 Finasteride (Proscar) 5 mg DAILY GTB Last administered on 06/24/19at 08:48; Admin Dose 5 MG; Start 06/23/19 at 09:00 Folic Acid (Folic Acid) 1 mg DAILY GTB Last administered on 06/24/19at 08:48; Admin Dose 1 MG; Start 06/23/19 at 09:00 Loratadine (Claritin) 10 mg DAILY GTB Last administered on 06/24/19at 08:51; Admin Dose 10 MG; Start 06/23/19 at 09:00 Lorazepam (Ativan) 0.5 mg Q4H PRN PO AGITATION/ANXIETY; Start 06/23/19 at 03:30 Multivitamins Therapeutic (Theragran) 1 tab DAILY PO Last administered on 06/24/19at 08:48; Admin Dose 1 TAB; Start 06/23/19 at 09:00 Lorazepam (Ativan) 2 mg Q3H PRN IV SEIZURES Last administered on 06/24/19at 06:42; Admin Dose 2 MG; Start 06/23/19 at 03:30 Ondansetron HCl (Zofran Inj) 4 mg Q6H PRN IV NAUSEA AND/OR VOMITING; Start 06/23/19 at 03:30 Tobramycin (Tobramycin Iv Per Pharmacy) TOBRAMYCIN PER PHARMACY NOTE XX ; Start 06/23/19 at 03:30 [facility] This patient mcqueen... PRN PRN XX WOUND CARE; Start 06/23/19 at 03:30 Diagnostic Test (Pha) (Accu-Chek) 1 ea 02 XX ; Start 06/24/19 at 02:00 Insulin Aspart (Novolog Insulin Pen) NOVOLOG *MODERATE* ALGORI... Q6 SC ; Start 06/23/19 at 06:00 Miscellaneous Information 1 ea NOTE XX ; Start 06/23/19 at 04:00 Glucose (Glutose) 15 gm Q15M PRN PO DECREASED GLUCOSE; Start 06/23/19 at 04:00 Glucose (Glutose) 22.5 gm Q15M PRN PO DECREASED GLUCOSE; Start 06/23/19 at 04:00 Dextrose (D50w Syringe) 25 ml Q15M PRN IV DECREASED GLUCOSE; Start 06/23/19 at 04:00 Dextrose (D50w Syringe) 50 ml Q15M PRN IV DECREASED GLUCOSE; Start 06/23/19 at 04:00 Glucagon (Glucagen) 1 mg Q15M PRN IM DECREASED GLUCOSE; Start 06/23/19 at 04:00 Glucose (Glutose) 15 gm Q15M PRN BUCCAL DECREASED GLUCOSE; Start 06/23/19 at 04:00 Magnesium Hydroxide (Milk Of Mag) 30 ml DAILY PRN PO CONSTIPATION; Start 06/23/19 at 04:00 Tobramycin 320 mg/ Sodium Chloride 108 ml @ 100 mls/hr Q48H IVPB Last administered on 06/23/19at 05:25; Admin Dose 100 MLS/HR; Start 06/23/19 at 06:00 Levetiracetam 100 ml @ 400 mls/hr Q12 IVPB Last administered on 06/24/19at 08:48; Admin Dose 400 MLS/HR; Start 06/23/19 at 09:00 Albuterol (Ventolin Hfa) 4 puff Q4H RESP THERAPY PRN INH SHORTNESS OF BREATH; Start 06/23/19 at 06:00 Levothyroxine Sodium (Synthroid) 150 mcg BEFORE BREAKFAST PEG Last administered on 06/24/19at 06:42; Admin Dose 150 MCG; Start 06/24/19 at 07:00 Liothyronine Sodium (Cytomel) 5 mcg DAILY PEG Last administered on 06/24/19at 08:48; Admin Dose 5 MCG; Start 06/24/19 at 09:00 Carvedilol (Coreg) 12.5 mg BID GTB Last administered on 06/24/19at 08:49; Admin Dose 12.5 MG; Start 06/23/19 at 21:00 Hydralazine HCl (Apresoline) 25 mg TID PO Last administered on 06/24/19at 08:49; Admin Dose 25 MG; Start 06/23/19 at 15:30 Hydralazine HCl (Apresoline) 10 mg Q4H PRN IV sbp >165; Start 06/23/19 at 15:30 LEWIS HUERTA Jun 24, 2019 11:04
--- NOTE | 2019-06-24 11:54 | CONS ---
Consult Date/Type/Reason Admit Date/Time Jun 23, 2019 at 00:53 Initial Consult Date 06/24/19 Type of Consult Pulmonary Requesting Provider: GLORIA KWON MD Date/Time of Note DATE: 06/24/19 TIME: 11:52 Subjective Appears comfortable on CPAP no respiratory distress. Opens eyes but not following commands. Objective Vital Signs Date Temp Pulse Resp B/P (MAP) Pulse Ox O2 O2 Flow FiO2 Time Delivery Rate 06/24/19 98.0 68 30 145/64 95 Mechanical 11:21 (91) Ventilator 06/24/19 30 05:06 Intake and Output 06/23/19 06/23/19 06/24/19 1515:00 23:00 07:00 IntakeIntake Total 100 ml 1180 ml OutputOutput Total 552 ml BalanceBalance -452 ml 1180 ml Exam GENERAL: Chronically ill-appearing gentleman on mechanical ventilation via tracheostomy VITAL SIGNS: per chart NECK: Supple. No JVD or lymphadenopathy. Trach site clean and intact poor dentition CARDIAC EXAM: S1, S2. No added sounds or murmurs. CHEST: clear bilaterally, No added sounds, rales or wheezes ABDOMEN: Soft, nontender. No guarding or rebound. EXTREMITIES: No cyanosis, clubbing edema +2 NEUROLOGIC: Generalized weakness. Vent Setting Ventilator Support Mode: CPAP, SPONT Fraction of Inspired Oxygen pe: 30 Positive End Expiratory Pressu: 5.0 Results/Medications Result Diagram: 06/24/19 0634 06/24/19 0634 Results 24 hrs Laboratory Tests Test 06/23/19 12:21 06/23/19 17:10 06/23/19 17:35 06/23/19 23:18 Bedside Glucose 127 134 123 Random Tobramycin 7.3 Level Test 06/24/19 06:16 06/24/19 06:34 Bedside Glucose 96 White Blood Count 11.7 H Red Blood Count 2.42 L Hemoglobin 7.2 L Hematocrit 23.1 L Mean Corpuscular 95.5 Volume Mean Corpuscular 29.8 Hemoglobin Mean Corpuscular 31.2 L Hemoglobin Concent Red Cell 16.4 H Distribution Width Platelet Count 188 Mean Platelet Volume 11.9 H Immature 0.800 H Granulocytes % Neutrophils % 65.5 Lymphocytes % 14.7 L Monocytes % 14.8 H Eosinophils % 4.1 Basophils % 0.1 Nucleated Red Blood 0.0 Cells % Immature 0.090 H Granulocytes # Neutrophils # 7.7 H Lymphocytes # 1.7 Monocytes # 1.7 H Eosinophils # 0.5 Basophils # 0.0 Nucleated Red Blood 0.0 Cells # Sodium Level 141 Potassium Level 4.9 Chloride Level 109 Carbon Dioxide Level 26 Anion Gap 6 Blood Urea Nitrogen 31 H Creatinine 1.22 Est Glomerular Filtrat Rate mL/min Glucose Level 94 Calcium Level 7.7 L Phosphorus Level 3.3 Magnesium Level 2.2 Medications Current Medications Acetaminophen (Tylenol Liquid) 650 mg Q4H PRN GTB MILD PAIN(1-3) OR TEMP>38C; Start 06/23/19 at 03:30 Ascorbic Acid (Vitamin C) 250 mg DAILY GTB Last administered on 06/24/19 08:48; Admin Dose 250 MG; Start 06/23/19 at 09:00 Aspirin (Aspirin) 81 mg DAILY GTB Last administered on 06/24/19 08:48; Admin Dose 81 MG; Start 06/23/19 at 09:00 Atorvastatin Calcium (Lipitor) 10 mg QHS GTB Last administered on 06/23/19 21:23; Admin Dose 10 MG; Start 06/23/19 at 21:00 Bisacodyl (Dulcolax) 10 mg DAILY PRN PO CONSTIPATION; Start 06/23/19 at 03:30; Status Hold Chlorhexidine Gluconate (Peridex) 15 ml BID MM Last administered on 06/24/19 08:47; Admin Dose 15 ML; Start 06/23/19 at 09:00 Colistimethate Sodium (Colistin Inhal) 75 mg BID INH Last administered on 06/23/19 20:07; Admin Dose 75 MG; Start 06/23/19 at 09:00 Diltiazem HCl (Cardizem) 30 mg Q8 GTB Last administered on 06/24/19 06:17; Admin Dose 30 MG; Start 06/23/19 at 06:00 Famotidine (Pepcid) 20 mg QHS GTB Last administered on 06/23/19 21:22; Admin Dose 20 MG; Start 06/23/19 at 21:00 Finasteride (Proscar) 5 mg DAILY GTB Last administered on 06/24/19 08:48; Admin Dose 5 MG; Start 06/23/19 at 09:00 Folic Acid (Folic Acid) 1 mg DAILY GTB Last administered on 06/24/19at 08:48; Admin Dose 1 MG; Start 06/23/19 at 09:00 Loratadine (Claritin) 10 mg DAILY GTB Last administered on 06/24/19at 08:51; Admin Dose 10 MG; Start 06/23/19 at 09:00 Lorazepam (Ativan) 0.5 mg Q4H PRN PO AGITATION/ANXIETY; Start 06/23/19 at 03:30 Multivitamins Therapeutic (Theragran) 1 tab DAILY PO Last administered on 06/24/19at 08:48; Admin Dose 1 TAB; Start 06/23/19 at 09:00 Lorazepam (Ativan) 2 mg Q3H PRN IV SEIZURES Last administered on 06/24/19at 06:42; Admin Dose 2 MG; Start 06/23/19 at 03:30 Ondansetron HCl (Zofran Inj) 4 mg Q6H PRN IV NAUSEA AND/OR VOMITING; Start 06/23/19 at 03:30 Tobramycin (Tobramycin Iv Per Pharmacy) TOBRAMYCIN PER PHARMACY NOTE XX ; Start 06/23/19 at 03:30 Miscellaneous Information (Pending Santyl Order For Wound Care) This patient mcqueen... PRN PRN XX WOUND CARE; Start 06/23/19 at 03:30 Diagnostic Test (Pha) (Accu-Chek) 1 ea 02 XX ; Start 06/24/19 at 02:00 Insulin Aspart (Novolog Insulin Pen) NOVOLOG *MODERATE* ALGORI... Q6 SC ; Start 06/23/19 at 06:00 Miscellaneous Information 1 ea NOTE XX ; Start 06/23/19 at 04:00 Glucose (Glutose) 15 gm Q15M PRN PO DECREASED GLUCOSE; Start 06/23/19 at 04:00 Glucose (Glutose) 22.5 gm Q15M PRN PO DECREASED GLUCOSE; Start 06/23/19 at 04:00 Dextrose (D50w Syringe) 25 ml Q15M PRN IV DECREASED GLUCOSE; Start 06/23/19 at 04:00 Dextrose (D50w Syringe) 50 ml Q15M PRN IV DECREASED GLUCOSE; Start 06/23/19 at 04:00 Glucagon (Glucagen) 1 mg Q15M PRN IM DECREASED GLUCOSE; Start 06/23/19 at 04:00 Glucose (Glutose) 15 gm Q15M PRN BUCCAL DECREASED GLUCOSE; Start 06/23/19 at 04:00 Magnesium Hydroxide (Milk Of Mag) 30 ml DAILY PRN PO CONSTIPATION; Start 06/23/19 at 04:00 Tobramycin 320 mg/ Sodium Chloride 108 ml @ 100 mls/hr Q48H IVPB Last administ ered on 06/23/19at 05:25; Admin Dose 100 MLS/HR; Start 06/23/19 at 06:00 Levetiracetam 100 ml @ 400 mls/hr Q12 IVPB Last administered on 06/24/19at 08:48; Admin Dose 400 MLS/HR; Start 06/23/19 at 09:00 Albuterol (Ventolin Hfa) 4 puff Q4H RESP THERAPY PRN INH SHORTNESS OF BREATH; Start 06/23/19 at 06:00 Levothyroxine Sodium (Synthroid) 150 mcg BEFORE BREAKFAST PEG Last administered on 06/24/19at 06:42; Admin Dose 150 MCG; Start 06/24/19 at 07:00 Liothyronine Sodium (Cytomel) 5 mcg DAILY PEG Last administered on 06/24/19at 08:48; Admin Dose 5 MCG; Start 06/24/19 at 09:00 Carvedilol (Coreg) 12.5 mg BID GTB Last administered on 06/24/19at 08:49; Admin Dose 12.5 MG; Start 06/23/19 at 21:00 Hydralazine HCl (Apresoline) 25 mg TID PO Last administered on 06/24/19at 08:49; Admin Dose 25 MG; Start 06/23/19 at 15:30 Hydralazine HCl (Apresoline) 10 mg Q4H PRN IV sbp >165; Start 06/23/19 at 15:30 Assessment/Plan Hospital Course (Demo Recall) Assessment 1. Chronic respiratory failure with tracheostomy 2. History of CVAs 3. Multiple decubitus ulcers 4. Anemia likely of chronic disease 5. Dysphagia with G-tube 6. Encephalopathy likely secondary to above Plan 1. Can continue CPAP 2. Continue wound care 3. Monitor H&H consider transfusion 1 unit packed red blood cells 4. Continue tube feeding as tolerated [facility]IL[facility] CYR MD[facility] Jun 24, 2019 11:54
--- NOTE | 2019-06-24 15:30 | CONS ---
Assessment/Plan Assessment/Plan Hospital Course (Demo Recall) No acute changes overnight patient is noncommunicative in no distress afebrile WBC today 11.7 platelets 188 neutrophils 65.5 BUN 31 creatinine 1.22 Stool for C. difficile came back negative Indwelling: Trach back right upper extremity PICC line Antimicrobials: Tobramycin, colistin inhalation Physical examination: This is a chronically ill appearing elderly man who is in no distress head atraumatic normocephalic neck is supple chest rise symmetrical breath sounds diminished bases heart S1-S2 abdomen soft bowel sounds present extremities without cyanosis Assessment: 1. Seizure disorder 2. 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 Resolving pneumonia 4. Encephalopathy 5. Diabetes 6. Atrial fibrillation Plan: Patient is clinically stable, we will continue him on current antimicrob ials, consider spinal MRI, follow neurology recommendations and monitor renal function closely Consultation Date/Type/Reason Admit Date/Time Jun 23, 2019 at 00:53 Initial Consult Date 06/24/19 Type of Consult id Requesting Provider: GLORIA KWON MD Date/Time of Note DATE: 06/24/19 TIME: 15:30 Exam/Review of Systems Exam Vitals Vital Signs Date Temp Pulse Resp B/P (MAP) Pulse Ox O2 O2 Flow FiO2 Time Delivery Rate 06/24/19 87 28 100 30 14:53 06/24/19 98.0 145/64 Mechanical 11:21 (91) Ventilator Intake and Output 06/23/19 06/23/19 06/24/19 1515:00 23:00 07:00 IntakeIntake Total 100 ml 1180 ml OutputOutput Total 552 ml BalanceBalance -452 ml 1180 ml Results Result Diagram: 06/24/19 0634 06/24/19 0634 Results 24hrs Laboratory Tests Test 06/23/19 17:10 06/23/19 17:35 06/23/19 23:18 06/24/19 06:16 Random Tobramycin 7.3 Level Bedside Glucose 134 123 96 Test 06/24/19 06:34 06/24/19 12:31 White Blood Count 11.7 H Red Blood Count 2.42 L Hemoglobin 7.2 L Hematocrit 23.1 L Mean Corpuscular 95.5 Volume Mean Corpuscular 29.8 Hemoglobin Mean Corpuscular 31.2 L Hemoglobin Concent Red Cell Distribution 16.4 H Width Platelet Count 188 Mean Platelet Volume 11.9 H Immature Granulocytes 0.800 H % Neutrophils % 65.5 Lymphocytes % 14.7 L Monocytes % 14.8 H Eosinophils % 4.1 Basophils % 0.1 Nucleated Red Blood 0.0 Cells % Immature Granulocytes 0.090 H # Neutrophils # 7.7 H Lymphocytes # 1.7 Monocytes # 1.7 H Eosinophils # 0.5 Basophils # 0.0 Nucleated Red Blood 0.0 Cells # Sodium Level 141 Potassium Level 4.9 Chloride Level 109 Carbon Dioxide Level 26 Anion Gap 6 Blood Urea Nitrogen 31 H Creatinine 1.22 Est Glomerular Filtrat Rate mL/min Glucose Level 94 Calcium Level 7.7 L Phosphorus Level 3.3 Magnesium Level 2.2 Bedside Glucose 104 Medications Medication Current Medications Acetaminophen (Tylenol Liquid) 650 mg Q4H PRN GTB MILD PAIN(1-3) OR TEMP>38C; Start 06/23/19 at 03:30 Ascorbic Acid (Vitamin C) 250 mg DAILY GTB Last administered on 06/24/19 08:48; Admin Dose 250 MG; Start 06/23/19 at 09:00 Aspirin (Aspirin) 81 mg DAILY GTB Last administered on 06/24/19 08:48; Admin Dose 81 MG; Start 06/23/19 at 09:00 Atorvastatin Calcium (Lipitor) 10 mg QHS GTB Last administered on 06/23/19 21:23; Admin Dose 10 MG; Start 06/23/19 at 21:00 Bisacodyl (Dulcolax) 10 mg DAILY PRN PO CONSTIPATION; Start 06/23/19 at 03:30; Status Hold Chlorhexidine Gluconate (Peridex) 15 ml BID MM Last administered on 06/24/19 08:47; Admin Dose 15 ML; Start 06/23/19 at 09:00 Colistimethate Sodium (Colistin Inhal) 75 mg BID INH Last administered on 06/23/19 20:07; Admin Dose 75 MG; Start 06/23/19 at 09:00 Diltiazem HCl (Cardizem) 30 mg Q8 GTB Last administered on 06/24/19 14:11; Admin Dose 30 MG; Start 06/23/19 at 06:00 Famotidine (Pepcid) 20 mg QHS GTB Last administered on 06/23/19 21:22; Admin Dose 20 MG; Start 06/23/19 at 21:00 Finasteride (Proscar) 5 mg DAILY GTB Last administered on 06/24/19at 08:48; Admin Dose 5 MG; Start 06/23/19 at 09:00 Folic Acid (Folic Acid) 1 mg DAILY GTB Last administered on 06/24/19at 08:48; Admin Dose 1 MG; Start 06/23/19 at 09:00 Loratadine (Claritin) 10 mg DAILY GTB Last administered on 06/24/19at 08:51; Admin Dose 10 MG; Start 06/23/19 at 09:00 Lorazepam (Ativan) 0.5 mg Q4H PRN PO AGITATION/ANXIETY; Start 06/23/19 at 03:30 Multivitamins Therapeutic (Theragran) 1 tab DAILY PO Last administered on 06/24/19at 08:48; Admin Dose 1 TAB; Start 06/23/19 at 09:00 Lorazepam (Ativan) 2 mg Q3H PRN IV SEIZURES Last administered on 06/24/19at 06:42; Admin Dose 2 MG; Start 06/23/19 at 03:30 Ondansetron HCl (Zofran Inj) 4 mg Q6H PRN IV NAUSEA AND/OR VOMITING; Start 06/23/19 at 03:30 Tobramycin (Tobramycin Iv Per Pharmacy) TOBRAMYCIN PER PHARMACY NOTE XX ; Start 06/23/19 at 03:30 Miscellaneous Information (Pending [facility] Order For Wound Care) This patient mcqueen... PRN PRN XX WOUND CARE; Start 06/23/19 at 03:30 Diagnostic Test (Pha) (Accu-Chek) 1 ea 02 XX ; Start 06/24/19 at 02:00 Insulin Aspart (Novolog Insulin Pen) NOVOLOG *MODERATE* ALGORI... Q6 SC ; Start 06/23/19 at 06:00 Miscellaneous Information 1 ea NOTE XX ; Start 06/23/19 at 04:00 Glucose (Glutose) 15 gm Q15M PRN PO DECREASED GLUCOSE; Start 06/23/19 at 04:00 Glucose (Glutose) 22.5 gm Q15M PRN PO DECREASED GLUCOSE; Start 06/23/19 at 04:00 Dextrose (D50w Syringe) 25 ml Q15M PRN IV DECREASED GLUCOSE; Start 06/23/19 at 04:00 Dextrose (D50w Syringe) 50 ml Q15M PRN IV DECREASED GLUCOSE; Start 06/23/19 at 04:00 Glucagon (Glucagen) 1 mg Q15M PRN IM DECREASED GLUCOSE; Start 06/23/19 at 04:00 Glucose (Glutose) 15 gm Q15M PRN BUCCAL DECREASED GLUCOSE; Start 06/23/19 at 04:00 Magnesium Hydroxide (Milk Of Mag) 30 ml DAILY PRN PO CONSTIPATION; Start 06/23/19 at 04:00 Tobramycin 320 mg/ Sodium Chloride 108 ml @ 100 mls/hr Q48H IVPB Last administered on 06/23/19at 05:25; Admin Dose 100 MLS/HR; Start 06/23/19 at 06:00 Levetiracetam 100 ml @ 400 mls/hr Q12 IVPB Last administered on 06/24/19at 08:48; Admin Dose 400 MLS/HR; Start 06/23/19 at 09:00 Albuterol (Ventolin Hfa) 4 puff Q4H RESP THERAPY PRN INH SHORTNESS OF BREATH; Start 06/23/19 at 06:00 Levothyroxine Sodium (Synthroid) 150 mcg BEFORE BREAKFAST PEG Last administered on 06/24/19at 06:42; Admin Dose 150 MCG; Start 06/24/19 at 07:00 Liothyronine Sodium (Cytomel) 5 mcg DAILY PEG Last administered on 06/24/19at 08:48; Admin Dose 5 MCG; Start 06/24/19 at 09:00 Carvedilol (Coreg) 12.5 mg BID GTB Last administered on 06/24/19at 08:49; Admin Dose 12.5 MG; Start 06/23/19 at 21:00 Hydralazine HCl (Apresoline) 25 mg TID PO Last administered on 06/24/19at 14:11; Admin Dose 25 MG; Start 06/23/19 at 15:30 Hydralazine HCl (Apresoline) 10 mg Q4H PRN IV sbp >165; Start 06/23/19 at 15:30 BLAIR MERCADO NP Jun 24, 2019 15:30
[2019-06-24] MEDS: ATORVASTATIN 10 MG TAB GTB SCH (21:51)
[2019-06-24] MEDS: FAMOTIDINE 20 MG TAB GTB SCH (21:51)
[2019-06-25] VITALS (19 sets, daily range): BP systolic 125–168; BP diastolic 63–79; PULSE 67–76; RESP 18–35
[2019-06-25] MEDS: ACCU-CHEK XX SCH (01:06)
[2019-06-25] MEDS: LORAZEPAM 2 MG INJ IV PRN (04:42)
[2019-06-25] MEDS: INSULIN ASPART [NOVOLOG] 3 ML PEN SC SCH ×4 (04:57→17:45)
[2019-06-25] MEDS: DILTIAZEM 60 MG TAB GTB SCH ×3 (05:03→21:01)
[2019-06-25] MEDS: LEVOTHYROXINE 150 MCG TAB PEG SCH (05:03)
[2019-06-25] MEDS: TOBRAMYCIN 320 MG in SOD CHLORIDE 0.9% 100 ML IVPB SCH (05:04)
--- NOTE | 2019-06-25 08:45 | CONS ---
Consult Date/Type/Reason Admit Date/Time Jun 23, 2019 at 00:53 Initial Consult Date 06/24/19 Type of Consultation: cv Requesting Provider: GLORIA KWON MD Date/Time of Note DATE: 06/25/19 TIME: 08:39 Subjective Cardiology follow-up progress note Subjective: Case discussed with staff. Telemetry was reviewed. Patient has remained sinus rhythm. Patient has had a very short run of SVT which is asymptomatic. Patient is a status post tracheostomy still on the ventilator. He does not verbalize to me but there is no report of any chest pain or pressure Objective: General: Elderly cachectic looking gentleman status post tracheostomy on the ventilator HEENT: NC/AT. Eyes are closed NECK: This post tracheostomy. no stridor. CV: Cardiac systolic murmur; no gallop or rubs. PULM: no wheezing . Mild rhonchi. GI: SOFT, NT, ND, post tube feeding Extremity: trace B/L LE edema. no clubbing. neuro: Opens his eyes to verbal stimuli Psych: calm rectal: deferred Objective Vitals Vital Signs Date Temp Pulse Resp B/P (MAP) Pulse Ox O2 O2 Flow FiO2 Time Delivery Rate 06/25/19 67 32 153/63 98 Mechanical 07:49 (93) Ventilator 06/25/19 30 05:51 06/25/19 98.4 04:26 Intake and Output 06/24/19 06/24/19 06/25/19 1515:00 23:00 07:00 IntakeIntake Total 100 ml 1250 ml 1280 ml OutputOutput Total 700 ml BalanceBalance -600 ml 1250 ml 1280 ml Results/Medications Result Diagram: 06/25/19 0614 06/25/19 0614 Results 24 hrs Laboratory Tests Test 06/24/19 12:31 06/24/19 17:20 06/25/19 00:58 06/25/19 04:44 Bedside Glucose 104 126 123 127 Test 06/25/19 06:14 White Blood Count 14.5 #H Red Blood Count 2.66 L Hemoglobin 7.8 L Hematocrit 25.9 L Mean Corpuscular Volume 97.4 Mean Corpuscular 29.3 Hemoglobin Mean Corpuscular 30.1 L Hemoglobin Concent Red Cell Distribution 16.5 H Width Platelet Count 208 Mean Platelet Volume 12.2 H Immature Granulocytes % 0.800 H Neutrophils % 71.5 Lymphocytes % 10.8 L Monocytes % 13.0 H Eosinophils % 3.7 Basophils % 0.2 Nucleated Red Blood 0.0 Cells % Immature Granulocytes # 0.110 H Neutrophils # 10.3 H Lymphocytes # 1.6 Monocytes # 1.9 H Eosinophils # 0.5 Basophils # 0.0 Nucleated Red Blood 0.0 Cells # Sodium Level 140 Potassium Level 5.2 H Chloride Level 108 Carbon Dioxide Level 26 Anion Gap 6 Blood Urea Nitrogen 35 H Creatinine 1.26 H Est Glomerular Filtrat Rate mL/min Glucose Level 99 Calcium Level 8.2 L Phosphorus Level 2.9 Magnesium Level 2.3 Home Meds Reported Medications Levetiracetam* (Keppra*) 500 Mg/5 Ml Solution, 1000 MG IVPB BID, BOTTLE 06/23/19 Magnesium Hydroxide (Milk of Magnesia) 2,400 Mg/10 Ml Oral.susp, 400 MG GTB PRN for CONSTIPATION 06/23/19 Colistimethate Sodium (Coly-Mycin M) 150 Mg Soln, 75 MG IJ 06/23/19 Diltiazem Hcl (Cardizem) 60 Mg Tablet, 30 MG PO Q8, #120 TAB 06/23/19 Chlorhexidine Gluconate (Peridex) 473 Ml Mouthwash, 15 ML MM BID, BOTTLE 06/23/19 Acetaminophen* (Acetaminophen* Susp) 325 Mg/10.15 Ml Solution, 650 MG GTB Q4H PRN for PAIN OR TEMP ABOVE 38C, ML 06/23/19 Ondansetron Hcl* (Zofran*) 4 Mg Tab, 4 MG IVP Q6H PRN for NAUSEA AND OR VOMITING, TAB 06/23/19 Multivitamins* (Theragran*) 1 Tab Tab, 1 TAB PO DAILY, TAB 06/23/19 Lorazepam* (Ativan*) 2 Mg Tablet, 2 MG IVP Q3H PRN for SEIZURES, #60 TAB 06/23/19 Lorazepam* (Lorazepam*) 0.5 Mg Tablet, 0.5 MG PO Q4 PRN for AGITATION/ANXIETY, TAB 06/23/19 Loratadine* (Loratadine*) 10 Mg Tablet, 10 MG GTB DAILY, #30 TAB 06/23/19 Liothyronine Sodium* (Cytomel*) 5 Mcg Tablet, 5 MCG PO DAILY, TAB 06/23/19 Levothyroxine Sodium* (Levothyroxine Sodium*) 150 Mcg Tablet, 150 MCG PO BEFORE BREAKFAST, #30 TAB 06/23/19 Folic Acid* (Folic Acid*) 1 Mg Tablet, 1 MG GTB DAILY, TAB 06/23/19 Finasteride* (Finasteride*) 5 Mg Tablet, 5 MG GTB DAILY, TAB 06/23/19 Famotidine* (Famotidine*) 20 Mg Tablet, 20 MG GTB QHS, #30 TAB 06/23/19 Carvedilol* (Carvedilol*) 6.25 Mg Tablet, 6.25 MG G-TUBE BID, #60 TAB 06/23/19 Bisacodyl* (Bisacodyl*) 5 Mg Tablet.dr, 10 MG DE DAILY PRN for CONSTIPATION, TAB 06/23/19 Atorvastatin (Atorvastatin) 10 Mg Tablet, 10 MG GTB QHS, #30 TAB 06/23/19 Aspirin* (Aspirin* Chew) 81 Mg Tab.chew, 81 MG GTB DAILY, TAB.CHEW 06/23/19 Ascorbic Acid (Vitamin C) 250 Mg Tab, 250 MG G-TUBE DAILY, TAB 06/23/19 Albuterol Sulfate (Proair Respiclick) 90 Mcg Aer.pow.ba, 4 PUFF INHALATION Q4 PRN for SHORTNESS OF BREATH, #1 BOTTLE 06/23/19 Discontinued Reported Medications Levetiracetam* (Keppra* IV) 500 Mg/5 Ml Soln, 10 MG IVPB Q12, EA DILUTE IN 100 ML NS 06/23/19 Medications Current Medications Acetaminophen (Tylenol Liquid) 650 mg Q4H PRN GTB MILD PAIN(1-3) OR TEMP>38C; Start 06/23/19 at 03:30 Ascorbic Acid (Vitamin C) 250 mg DAILY GTB Last administered on 06/24/19at 08:48; Admin Dose 250 MG; Start 06/23/19 at 09:00 Aspirin (Aspirin) 81 mg DAILY GTB Last administered on 06/24/19at 08:48; Admin Dose 81 MG; Start 06/23/19 at 09:00 Atorvastatin Calcium (Lipitor) 10 mg QHS GTB Last administered on 06/24/19at 21:51; Admin Dose 10 MG; Start 06/23/19 at 21:00 Bisacodyl (Dulcolax) 10 mg DAILY PRN PO CONSTIPATION; Start 06/23/19 at 03:30; Status Hold Chlorhexidine Gluconate (Peridex) 15 ml BID MM Last administered on 06/24/19at 21:51; Admin Dose 15 ML; Start 06/23/19 at 09:00 Colistimethate Sodium (Colistin Inhal) 75 mg BID INH Last administered on 06/23/19at 20:07; Admin Dose 75 MG; Start 06/23/19 at 09:00 Diltiazem HCl (Cardizem) 30 mg Q8 GTB Last administered on 06/25/19 05:03; Admin Dose 30 MG; Start 06/23/19 at 06:00 Famotidine (Pepcid) 20 mg QHS GTB Last administered on 06/24/19 21:51; Admin Dose 20 MG; Start 06/23/19 at 21:00 Finasteride (Proscar) 5 mg DAILY GTB Last administered on 06/24/19 08:48; Admin Dose 5 MG; Start 06/23/19 at 09:00 Folic Acid (Folic Acid) 1 mg DAILY GTB Last administered on 06/24/19at 08:48; Admin Dose 1 MG; Start 06/23/19 at 09:00 Loratadine (Claritin) 10 mg DAILY GTB Last administered on 06/24/19 08:51; Admin Dose 10 MG; Start 06/23/19 at 09:00 Lorazepam (Ativan) 0.5 mg Q4H PRN PO AGITATION/ANXIETY; Start 06/23/19 at 03:30 Multivitamins Therapeutic (Theragran) 1 tab DAILY PO Last administered on 06/24/19at 08:48; Admin Dose 1 TAB; Start 06/23/19 at 09:00 Lorazepam (Ativan) 2 mg Q3H PRN IV SEIZURES Last administered on 06/25/19at 0 4:42; Admin Dose 2 MG; Start 06/23/19 at 03:30 Ondansetron HCl (Zofran Inj) 4 mg Q6H PRN IV NAUSEA AND/OR VOMITING; Start 06/23/19 at 03:30 Tobramycin (Tobramycin Iv Per Pharmacy) TOBRAMYCIN PER PHARMACY NOTE XX ; Start 06/23/19 at 03:30 Miscellaneous Information (Pending [facility] Order For Wound Care) This patient mcqueen... PRN PRN XX WOUND CARE; Start 06/23/19 at 03:30 Diagnostic Test (Pha) (Accu-Chek) 1 ea 02 XX ; Start 06/24/19 at 02:00 Insulin Aspart (Novolog Insulin Pen) NOVOLOG *MODERATE* ALGORI... Q6 SC ; Start 06/23/19 at 06:00 Miscellaneous Information 1 ea NOTE XX ; Start 06/23/19 at 04:00 Glucose (Glutose) 15 gm Q15M PRN PO DECREASED GLUCOSE; Start 06/23/19 at 04:00 Glucose (Glutose) 22.5 gm Q15M PRN PO DECREASED GLUCOSE; Start 06/23/19 at 04:00 Dextrose (D50w Syringe) 25 ml Q15M PRN IV DECREASED GLUCOSE; Start 06/23/19 at 04:00 Dextrose (D50w Syringe) 50 ml Q15M PRN IV DECREASED GLUCOSE; Start 06/23/19 at 04:00 Glucagon (Glucagen) 1 mg Q15M PRN IM DECREASED GLUCOSE; Start 06/23/19 at 04:00 Glucose (Glutose) 15 gm Q15M PRN BUCCAL DECREASED GLUCOSE; Start 06/23/19 at 04:00 Magnesium Hydroxide (Milk Of Mag) 30 ml DAILY PRN PO CONSTIPATION; Start 06/23/19 at 04:00 Tobramycin 320 mg/ Sodium Chloride 108 ml @ 100 mls/hr Q48H IVPB Last administered on 06/25/19at 05:04; Admin Dose 100 MLS/HR; Start 06/23/19 at 06:00 Levetiracetam 100 ml @ 400 mls/hr Q12 IVPB Last administered on 06/24/19at 22:01; Admin Dose 400 MLS/HR; Start 06/23/19 at 09:00 Albuterol (Ventolin Hfa) 4 puff Q4H RESP THERAPY PRN INH SHORTNESS OF BREATH; Start 06/23/19 at 06:00 Levothyroxine Sodium (Synthroid) 150 mcg BEFORE BREAKFAST PEG Last administered on 06/25/19at 05:03; Admin Dose 150 MCG; Start 06/24/19 at 07:00 Liothyronine Sodium (Cytomel) 5 mcg DAILY PEG Last administered on 8/1/19at 08 :48; Admin Dose 5 MCG; Start 06/24/19 at 09:00 Carvedilol (Coreg) 12.5 mg BID GTB Last administered on 06/24/19 21:52; Admin Dose 12.5 MG; Start 06/23/19 at 21:00 Hydralazine HCl (Apresoline) 25 mg TID PO Last administered on 06/24/19 21:52; Admin Dose 25 MG; Start 06/23/19 at 15:30 Hydralazine HCl (Apresoline) 10 mg Q4H PRN IV sbp >165; Start 06/23/19 at 15:30 Assessment/Plan Hospital Course (Demo Recall) Seizure with status epilepticus: resolved now. 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 Vent support will be continued Transfusions as needed off amiodarone due to his severe thyroid d/o Continue with Coreg with holding parameters Continue with aspirin. We have held off on full anticoagulation due to concern about his severe anemia and possibly bleeding. We will check the stool guaiac Thank you for his referral. We will continue to follow along with you MARY JEAN BAPTISTE MD [facility] MARY JEAN BAPTISTE MD Jun 25, 2019 08:45
[2019-06-25] MEDS: COLISTIMETHATE (25 MG/ML INHAL SYG) INH SCH ×2 (09:01→21:37)
[2019-06-25] MEDS: CHLORHEXIDINE GLUCONATE 15 ML UD CUP MM SCH ×2 (10:09→20:59)
[2019-06-25] MEDS: FINASTERIDE 5 MG TAB GTB SCH (10:10)
[2019-06-25] MEDS: MULTIVITAMINS THERAPEUTIC TAB PO SCH (10:10)
[2019-06-25] MEDS: LIOTHYRONINE 5 MCG TAB PEG SCH (10:10)
[2019-06-25] MEDS: LORATADINE 10 MG TAB GTB SCH (10:10)
[2019-06-25] MEDS: FOLIC ACID 1 MG TAB GTB SCH (10:10)
[2019-06-25] MEDS: ASPIRIN 81 MG TAB GTB SCH (10:10)
[2019-06-25] MEDS: ASCORBIC ACID 250 MG TAB GTB SCH (10:10)
[2019-06-25] MEDS: LEVETIRACETAM 1000 MG (PMX) 100 ML IVPB SCH ×2 (10:16→21:01)
--- NOTE | 2019-06-25 10:25 | DS ---
visit 06/24/2019 The patient seen, alert, following commands. I had a long discussion with patient's friend who does know him very well and makes some decisions for him, Radha phone number [phone]. The patient was seen. Case discussed extensively as well with Dr. Wilder regarding anticoagulation and the patient's concerning anemia. Again, may need to transfuse and we will monitor tomorrow, his hemoglobin. His white count has improved to 11.7 with current antibiotics. ID mentioned possible MRI of the spine but may be difficult to obtain as patient on vent, but we may try it. PHYSICAL EXAMINATION: VITAL SIGNS: Temperature 98, pulse 70, respirations 26, blood pressure 130/58, saturation 96% on 30% FIO2 on AC mode. GENERAL: The patient is in no acute distress, pale. 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 HEART: S1, S2. LUNGS: Decreased bilaterally. ABDOMEN: Slightly distended. G-tube in place. EXTREMITIES: No clubbing, cyanosis, or edema. Multiple skin ecchymosis throughout. LABORATORY DATA: White count 11.7, hemoglobin low at 7.2, hematocrit 23, platelets 188, was 66%, lymphs of 40%. Chemistry: Sodium 141, potassium 4.9, chloride 109, bicarbonate 26, BUN 31, creatinine 1.22 and glucose of 94. Last glucose levels of 126 and 104. INR is 1.1. Stool for C. diff on 06/23/2019 is negative. Patient's chest x-ray done on 06/24/2019 shows interval increase in size of at least moderate left pleural effusion. Down the line, left lower lung remains obscured for which underlying is not excluded. The balance of the exam is otherwise unchanged. Stable cardiomegaly and mid interstitial prominence, aortic atherosclerosis calcification is noted. MEDICATIONS: The patient's current medications as they were reviewed: 1. Cytomel 5 mcg daily. 2. Synthroid 150 daily. 3. Accu-Chek as directed. 4. Lipitor 10 mg at bedtime. 5. Pepcid 20 at bedtime. 6. Coreg 12.5 b.i.d. 7. Hydralazine 25 t.i.d. p.r.n. 8. Vitamin C 250 daily. 9. Aspirin 81 mg daily. 10. Peridex 50 b.i.d. 11. Colistin 75 inhalations b.i.d. 12. Proscar 5 mg daily. 13. Folic acid 1 mg daily. 14. Claritin 10 mg daily. 15. Multivitamin daily. 16. Keppra 1,000 twice a day IV. 17. Diltiazem as directed. 18. Tobramycin, dose per pharmacy. 19. Albuterol every 4 hours p.r.n. 20. Hypoglycemia protocol as directed. 21. Tylenol p.r.n. 22. Ativan p.r.n. 23. Zofran p.r.n. ASSESSMENT AND PLAN: This is an 88-year-old male with history of diabetes mellitus, gastroesophageal reflux disease, atrial fibrillation, dysphagia, gastric tube feeding, is ventilator-dependent respiratory failure, pleural effusion, was recently treated for UTI, pneumonia, and unfortunately had status epilepticus, also mild renal insufficiency. 1. Respiratory. Noted chest x-ray. He does have a pleural effusion on the left. Pulmonary to follow. Currently being treated for pneumonia, may follow up chest x-ray. Thoracentesis is a possibility, but overall will monitor for now. Continue suctioning due to difficulty in swallowing his secretions. 2. Cardiovascular. The patient with atrial fibrillation. Continue aspirin and statin for cardiac protection. 3. Encephalopathy, status post seizures, resolved. Back to baseline. 4. Seizure disorder. Continue IV Keppra. May transition to oral Keppra. 5. Hypothyroidism. TSH improved nicely. Continue Synthroid and Cytomel. I appreciate Dr. Landa's followup. 6. Dysphagia. Continue G-tube feeding. 7. Anemia, drop in H and H is noted. Follow up tomorrow and may consider transfusion. 8. Patient is FULL CODE. 9. Continue gastrointestinal prophylaxis. 10. Multiple wounds. Continue air mattress bed, vitamins and benefit specialist followup. 11. History of urinary retention. Continue to follow. Patient has been seen previously by Dr. Villanueva. 12. Renal insufficiency, stable. 13. Continue to monitor overall condition. This case discussed with patient's friend. May consider transfer to [facility] for further weaning and pulmonary care. 14. Questionable diskitis or osteomyelitis. In the meantime on antibiotics. May consider MRI. We will follow. Dictated By: GLORIA KAN/ADENIKE Conf#: [id number] [facility]#: [id number] MTDD
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
--- NOTE | 2019-06-25 13:29 | CONS ---
Assessment/Plan Assessment/Plan Problems: (1) Hypothyroidism (acquired) Status: Chronic Comment: He needs to have his TSH and free T4 free T3 followed. He is scheduled to have this drawn on June 28, 2019. If he is going to be transferred over to [place] that blood can be drawn from there. Please keep me i nformed as to the results. Respectfully Ina Ortega MD CC: GLORIA KWON MD ; Consultation Date/Type/Reason Admit Date/Time Jun 23, 2019 at 00:53 Initial Consult Date 06/24/19 Type of Consult Endocrinology Reason for Consultation Hypothyroidism Requesting Provider: GLORIA KWON MD Date/Time of Note DATE: 06/25/19 TIME: 13:27 24 HR Interval Summary Free Text/Dictation Patient is apparently had baseline for his situation Detailed Summary Endocrine: no complaints Exam/Review of Systems Exam Vitals Vital Signs Date Temp Pulse Resp B/P (MAP) Pulse Ox O2 O2 Flow FiO2 Time Delivery Rate 06/25/19 98.0 76 30 150/79 98 Mechanical 11:50 (102) Ventilator 06/25/19 30 05:51 Intake and Output 06/24/19 06/24/19 06/25/19 1515:00 23:00 07:00 IntakeIntake Total 100 ml 1250 ml 1280 ml OutputOutput Total 700 ml BalanceBalance -600 ml 1250 ml 1280 ml Exam No change in examination of Results Result Diagram: 06/25/19 0614 06/25/19 0614 Results 24hrs Laboratory Tests Test 06/24/19 17:20 06/25/19 00:58 06/25/19 04:44 06/25/19 06:14 Bedside Glucose 126 123 127 White Blood Count 14.5 #H Red Blood Count 2.66 L Hemoglobin 7.8 L Hematocrit 25.9 L Mean Corpuscular Volume 97.4 Mean Corpuscular 29.3 Hemoglobin Mean Corpuscular 30.1 L Hemoglobin Concent Red Cell Distribution 16.5 H Width Platelet Count 208 Mean Platelet Volume 12.2 H Immature Granulocytes % 0.800 H Neutrophils % 71.5 Lymphocytes % 10.8 L Monocytes % 13.0 H Eosinophils % 3.7 Basophils % 0.2 Nucleated Red Blood 0.0 Cells % Immature Granulocytes # 0.110 H Neutrophils # 10.3 H Lymphocytes # 1.6 Monocytes # 1.9 H Eosinophils # 0.5 Basophils # 0.0 Nucleated Red Blood 0.0 Cells # Erythrocyte 135 H Sedimentation Rate Sodium Level 140 Potassium Level 5.2 H Chloride Level 108 Carbon Dioxide Level 26 Anion Gap 6 Blood Urea Nitrogen 35 H Creatinine 1.26 H Est Glomerular Filtrat Rate mL/min Glucose Level 99 Calcium Level 8.2 L Phosphorus Level 2.9 Magnesium Level 2.3 Test 06/25/19 11:58 Bedside Glucose 128 Medications Medication Current Medications Acetaminophen (Tylenol Liquid) 650 mg Q4H PRN GTB MILD PAIN(1-3) OR TEMP>38C; Start 06/23/19 at 03:30 Ascorbic Acid (Vitamin C) 250 mg DAILY GTB Last administered on 06/25/19 10:10; Admin Dose 250 MG; Start 06/23/19 at 09:00 Aspirin (Aspirin) 81 mg DAILY GTB Last administered on 06/25/19 10:10; Admin Dose 81 MG; Start 06/23/19 at 09:00 Atorvastatin Calcium (Lipitor) 10 mg QHS GTB Last administered on 06/24/19 21:51; Admin Dose 10 MG; Start 06/23/19 at 21:00 Bisacodyl (Dulcolax) 10 mg DAILY PRN PO CONSTIPATION; Start 06/23/19 at 03:30; Status Hold Chlorhexidine Gluconate (Peridex) 15 ml BID MM Last administered on 06/25/19 10:09; Admin Dose 15 ML; Start 06/23/19 at 09:00 Colistimethate Sodium (Colistin Inhal) 75 mg BID INH Last administered on 06/25/19 09:01; Admin Dose 75 MG; Start 06/23/19 at 09:00 Diltiazem HCl (Cardizem) 30 mg Q8 GTB Last administered on 06/25/19 05:03; Admin Dose 30 MG; Start 06/23/19 at 06:00 Famotidine (Pepcid) 20 mg QHS GTB Last administered on 06/24/19 21:51; Admin Dose 20 MG; Start 06/23/19 at 21:00 Finasteride (Proscar) 5 mg DAILY GTB Last administered on 06/25/19 10:10; Admin Dose 5 MG; Start 06/23/19 at 09:00 Folic Acid (Folic Acid) 1 mg DAILY GTB Last administered on 06/25/19at 10:10; Admin Dose 1 MG; Start 06/23/19 at 09:00 Loratadine (Claritin) 10 mg DAILY GTB Last administered on 06/25/19at 10:10; Admin Dose 10 MG; Start 06/23/19 at 09:00 Lorazepam (Ativan) 0.5 mg Q4H PRN PO AGITATION/ANXIETY; Start 06/23/19 at 03:30 Multivitamins Therapeutic (Theragran) 1 tab DAILY PO Last administered on 06/25/19at 10:10; Admin Dose 1 TAB; Start 06/23/19 at 09:00 Lorazepam (Ativan) 2 mg Q3H PRN IV SEIZURES Last administered on 06/25/19at 04:42; Admin Dose 2 MG; Start 06/23/19 at 03:30 Ondansetron HCl (Zofran Inj) 4 mg Q6H PRN IV NAUSEA AND/OR VOMITING; Start 06/23/19 at 03:30 Tobramycin (Tobramycin Iv Per Pharmacy) TOBRAMYCIN PER PHARMACY NOTE XX ; Start 06/23/19 at 03:30 Miscellaneous Information (Pending Santyl Order For Wound Care) This patient mcqueen... PRN PRN XX WOUND CARE; Start 06/23/19 at 03:30 Diagnostic Test (Pha) (Accu-Chek) 1 ea 02 XX ; Start 06/24/19 at 02:00 Insulin Aspart (Novolog Insulin Pen) NOVOLOG *MODERATE* ALGORI... Q6 SC ; Start 06/23/19 at 06:00 Miscellaneous Information 1 ea NOTE XX ; Start 06/23/19 at 04:00 Glucose (Glutose) 15 gm Q15M PRN PO DECREASED GLUCOSE; Start 06/23/19 at 04:00 Glucose (Glutose) 22.5 gm Q15M PRN PO DECREASED GLUCOSE; Start 06/23/19 at 0 4:00 Dextrose (D50w Syringe) 25 ml Q15M PRN IV DECREASED GLUCOSE; Start 06/23/19 at 04:00 Dextrose (D50w Syringe) 50 ml Q15M PRN IV DECREASED GLUCOSE; Start 06/23/19 at 04:00 Glucagon (Glucagen) 1 mg Q15M PRN IM DECREASED GLUCOSE; Start 06/23/19 at 04:00 Glucose (Glutose) 15 gm Q15M PRN BUCCAL DECREASED GLUCOSE; Start 06/23/19 at 04:00 Magnesium Hydroxide (Milk Of Mag) 30 ml DAILY PRN PO CONSTIPATION; Start 06/23/19 at 04:00 Tobramycin 320 mg/ Sodium Chloride 108 ml @ 100 mls/hr Q48H IVPB Last administered on 06/25/19 05:04; Admin Dose 100 MLS/HR; Start 06/23/19 at 06:00 Levetiracetam 100 ml @ 400 mls/hr Q12 IVPB Last administered on 06/25/19 10:16; Admin Dose 400 MLS/HR; Start 06/23/19 at 09:00 Albuterol (Ventolin Hfa) 4 puff Q4H RESP THERAPY PRN INH SHORTNESS OF BREATH; Start 06/23/19 at 06:00 Levothyroxine Sodium (Synthroid) 150 mcg BEFORE BREAKFAST PEG Last administered on 06/25/19at 05:03; Admin Dose 150 MCG; Start 06/24/19 at 07:00 Liothyronine Sodium (Cytomel) 5 mcg DAILY PEG Last administered on 06/25/19at 10:10; Admin Dose 5 MCG; Start 06/24/19 at 09:00 Carvedilol (Coreg) 12.5 mg BID GTB Last administered on 06/25/19 10:11; Admin Dose 12.5 MG; Start 06/23/19 at 21:00 Hydralazine HCl (Apresoline) 25 mg TID PO Last administered on 06/25/19 10:16; Admin Dose 25 MG; Start 06/23/19 at 15:30 Hydralazine HCl (Apresoline) 10 mg Q4H PRN IV sbp >165; Start 06/23/19 at 15:30 INA ORTEGA MD Jun 25, 2019 13:29
--- NOTE | 2019-06-25 16:05 | CONS ---
Assessment/Plan Assessment/Plan Hospital Course (Demo Recall) No acute changes overnight patient is noncommunicative in no distress afebrile WBC 14.5 platelets 2 8 neutrophils 71.5 ESR 135 BUN 35 creatinine 1.6 Stool for C. difficile came back negative Indwelling: Trach back right upper extremity PICC line Antimicrobials: Tobramycin, colistin inhalation Physical examination: This is a chronically ill appearing elderly man who is in no distress head atraumatic normocephalic neck is supple chest rise symmetrical breath sounds diminished bases heart S1-S2 abdomen soft bowel sounds present extremities without cyanosis Assessment: 1. Seizure disorder 2. 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 Resolving pneumonia 4. Encephalopathy 5. Diabetes 6. Atrial fibrillation Plan: Patient is clinically stable, continue abx, consider spinal MRI, follow neurology recommendations and monitor renal function closely Consultation Date/Type/Reason Admit Date/Time Jun 23, 2019 at 00:53 Initial Consult Date 06/24/19 Type of Consult id Requesting Provider: GLORIA KWON MD Date/Time of Note DATE: 06/25/19 TIME: 16:04 Exam/Review of Systems Exam Vitals Vital Signs Date Temp Pulse Resp B/P (MAP) Pulse Ox O2 O2 Flow FiO2 Time Delivery Rate 06/25/19 98.0 74 31 125/78 98 Mechanical 15:14 (94) Ventilator 06/25/19 30 05:51 Intake and Output 06/24/19 06/24/19 06/25/19 1515:00 23:00 07:00 IntakeIntake Total 100 ml 1250 ml 1280 ml OutputOutput Total 700 ml BalanceBalance -600 ml 1250 ml 1280 ml Results Result Diagram: 06/25/19 0614 06/25/19 0614 Results 24hrs Laboratory Tests Test 06/24/19 17:20 06/25/19 00:58 06/25/19 04:44 06/25/19 06:14 Bedside Glucose 126 123 127 White Blood Count 14.5 #H Red Blood Count 2.66 L Hemoglobin 7.8 L Hematocrit 25.9 L Mean Corpuscular Volume 97.4 Mean Corpuscular 29.3 Hemoglobin Mean Corpuscular 30.1 L Hemoglobin Concent Red Cell Distribution 16.5 H Width Platelet Count 208 Mean Platelet Volume 12.2 H Immature Granulocytes % 0.800 H Neutrophils % 71.5 Lymphocytes % 10.8 L Monocytes % 13.0 H Eosinophils % 3.7 Basophils % 0.2 Nucleated Red Blood 0.0 Cells % Immature Granulocytes # 0.110 H Neutrophils # 10.3 H Lymphocytes # 1.6 Monocytes # 1.9 H Eosinophils # 0.5 Basophils # 0.0 Nucleated Red Blood 0.0 Cells # Erythrocyte 135 H Sedimentation Rate Sodium Level 140 Potassium Level 5.2 H Chloride Level 108 Carbon Dioxide Level 26 Anion Gap 6 Blood Urea Nitrogen 35 H Creatinine 1.26 H Est Glomerular Filtrat Rate mL/min Glucose Level 99 Calcium Level 8.2 L Phosphorus Level 2.9 Magnesium Level 2.3 Test 06/25/19 11:58 Bedside Glucose 128 Medications Medication Current Medications Acetaminophen (Tylenol Liquid) 650 mg Q4H PRN GTB MILD PAIN(1-3) OR TEMP>38C; Start 06/23/19 at 03:30 Ascorbic Acid (Vitamin C) 250 mg DAILY GTB Last administered on 06/25/19 10:10; Admin Dose 250 MG; Start 06/23/19 at 09:00 Aspirin (Aspirin) 81 mg DAILY GTB Last administered on 06/25/19 10:10; Admin Dose 81 MG; Start 06/23/19 at 09:00 Atorvastatin Calcium (Lipitor) 10 mg QHS GTB Last administered on 06/24/19 21:51; Admin Dose 10 MG; Start 06/23/19 at 21:00 Bisacodyl (Dulcolax) 10 mg DAILY PRN PO CONSTIPATION; Start 06/23/19 at 03:30; Status Hold Chlorhexidine Gluconate (Peridex) 15 ml BID MM Last administered on 06/25/19 10:09; Admin Dose 15 ML; Start 06/23/19 at 09:00 Colistimethate Sodium (Colistin Inhal) 75 mg BID INH Last administered on 06/25/19 09:01; Admin Dose 75 MG; Start 06/23/19 at 09:00 Diltiazem HCl (Cardizem) 30 mg Q8 GTB Last administered on 06/25/19 14:56; Admin Dose 30 MG; Start 06/23/19 at 06:00 Famotidine (Pepcid) 20 mg QHS GTB Last administered on 06/24/19 21:51; Admin Dose 20 MG; Start 06/23/19 at 21:00 Finasteride (Proscar) 5 mg DAILY GTB Last administered on 06/25/19at 10:10; Admin Dose 5 MG; Start 06/23/19 at 09:00 Folic Acid (Folic Acid) 1 mg DAILY GTB Last administered on 06/25/19at 10:10; Admin Dose 1 MG; Start 06/23/19 at 09:00 Loratadine (Claritin) 10 mg DAILY GTB Last administered on 06/25/19at 10:10; Admin Dose 10 MG; Start 06/23/19 at 09:00 Lorazepam (Ativan) 0.5 mg Q4H PRN PO AGITATION/ANXIETY; Start 06/23/19 at 03:30 Multivitamins Therapeutic (Theragran) 1 tab DAILY PO Last administered on 06/25/19at 10:10; Admin Dose 1 TAB; Start 06/23/19 at 09:00 Lorazepam (Ativan) 2 mg Q3H PRN IV SEIZURES Last administered on 06/25/19at 04:42; Admin Dose 2 MG; Start 06/23/19 at 03:30 Ondansetron HCl (Zofran Inj) 4 mg Q6H PRN IV NAUSEA AND/OR VOMITING; Start 06/23/19 at 03:30 Tobramycin (Tobramycin Iv Per Pharmacy) TOBRAMYCIN PER PHARMACY NOTE XX ; Start 06/23/19 at 03:30 Miscellaneous Information (Pending [facility] Order For Wound Care) This patient mcqueen. .. PRN PRN XX WOUND CARE; Start 06/23/19 at 03:30 Diagnostic Test (Pha) (Accu-Chek) 1 ea 02 XX ; Start 06/24/19 at 02:00 Insulin Aspart (Novolog Insulin Pen) NOVOLOG *MODERATE* ALGORI... Q6 SC ; Start 06/23/19 at 06:00 Miscellaneous Information 1 ea NOTE XX ; Start 06/23/19 at 04:00 Glucose (Glutose) 15 gm Q15M PRN PO DECREASED GLUCOSE; Start 06/23/19 at 04:00 Glucose (Glutose) 22.5 gm Q15M PRN PO DECREASED GLUCOSE; Start 06/23/19 at 04:00 Dextrose (D50w Syringe) 25 ml Q15M PRN IV DECREASED GLUCOSE; Start 06/23/19 at 04:00 Dextrose (D50w Syringe) 50 ml Q15M PRN IV DECREASED GLUCOSE; Start 06/23/19 at 04:00 Glucagon (Glucagen) 1 mg Q15M PRN IM DECREASED GLUCOSE; Start 06/23/19 at 04:00 Glucose (Glutose) 15 gm Q15M PRN BUCCAL DECREASED GLUCOSE; Start 06/23/19 at 04:00 Magnesium Hydroxide (Milk Of Mag) 30 ml DAILY PRN PO CONSTIPATION; Start 06/23/19 at 04:00 Tobramycin 320 mg/ Sodium Chloride 108 ml @ 100 mls/hr Q48H IVPB Last administered on 06/25/19at 05:04; Admin Dose 100 MLS/HR; Start 06/23/19 at 06:00 Levetiracetam 100 ml @ 400 mls/hr Q12 IVPB Last administered on 06/25/19at 10:16; Admin Dose 400 MLS/HR; Start 06/23/19 at 09:00 Albuterol (Ventolin Hfa) 4 puff Q4H RESP THERAPY PRN INH SHORTNESS OF BREATH; Start 06/23/19 at 06:00 Levothyroxine Sodium (Synthroid) 150 mcg BEFORE BREAKFAST PEG Last administered on 06/25/19at 05:03; Admin Dose 150 MCG; Start 06/24/19 at 07:00 Liothyronine Sodium (Cytomel) 5 mcg DAILY PEG Last administered on 06/25/19at 10:10; Admin Dose 5 MCG; Start 06/24/19 at 09:00 Carvedilol (Coreg) 12.5 mg BID GTB Last administered on 06/25/19at 10:11; Admin Dose 12.5 MG; Start 06/23/19 at 21:00 Hydralazine HCl (Apresoline) 25 mg TID PO Last administered on 06/25/19at 14:55; Admin Dose 25 MG; Start 06/23/19 at 15:30 Hydralazine HCl (Apresoline) 10 mg Q4H PRN IV sbp >165; Start 06/23/19 at 15:30 BLAIR MYERS NP Jun 25, 2019 16:05
--- NOTE | 2019-06-25 18:47 | PN ---
DATE: 06/25/2019 SUBJECTIVE: The patient was seen alert with no complaints. Hemoglobin remains low at 7.8. White co unt is slightly higher. PHYSICAL EXAMINATION: VITAL SIGNS: Temperature 98, pulse 76, respirations up to 30, blood pressure 152/79, saturation 98% on full ventilatory support, 30% FIO2. GENERAL: The patient is in no acute distress. HEENT: Pale. CARDIOVASCULAR: S1, S2. LUNGS: Clear. ABDOMEN: Soft, slightly distended. EXTREMITIES: No clubbing, cyanosis or edema. LABORATORY DATA: White count 14.5, hemoglobin 7.8, hematocrit 26, platelet count 208, neutrophils 72 %, lymphs 11%. Chemistry: Sodium 140, potassium 5.2, chloride 108, bicarbonate 26, BUN 35, creatini ne 1.26 and glucose of 99. Stool for C. diff on 06/23/2019 was negative. CURRENT MEDICATIONS: 1. Cytomel 5 mcg daily. 2. Synthroid 150 daily. 3. Accu-Cheks as directed. 4. Lipitor 10 mg at bedtime. 5. Pepcid 20 at bedtime. 6. Coreg 12.5 b.i.d. 7. Hydralazine 25 daily. 8. Vitamin C 250 daily. 9. Aspirin 81 mg daily. 10. Peridex 15 b.i.d. 11. Colistin inhalations b.i.d. 11. Proscar 5 mg daily. 12. Folic acid 1 mg daily. 13. Claritin 10 mg daily. 14. Multivitamin 1 tablet daily. 15. Keppra q.12. 15. Cardizem 30 q.8. 16. Tobramycin IV dose per pharmacy. 17. Hypoglycemia protocol. 18. Ativan. 19. Zofran as directed. ASSESSMENT AND PLAN: This is an 88-year-old male with history of diabetes mellitus, gastro esophageal reflux disease, atrial fibrillation, dysphagia, G-tube feeding, ventilatory dependent resp iratory failure, pleural effusion was recently treated for urinary tract infection, pneumonia and unf ortunately had status epilepticus, also mild renal insufficiency. 1. Respiratory: Pulmonary is following. May consider transfer to [facility] for f urther pulmonary care and weaning. 2. Cardiovascular: The patient is on aspirin and statin. Vitals are stable. 3. Encephalopathy, back to baseline status post seizures, which are controlled. Again, seizure diso rder, on IV Keppra. 4. Hypothyroidism, on Cytomel and Synthroid. Monitor TSH. 5. Dysphagia. Continue G-tube feeding. 6. Anemia. H and H is noted. Consider transfusion. Observe. Currently, no evidence of bleeding. 7. The patient is full code. 8. Case was discussed with Radha, his friend, regarding plan of care. 9. Multiple wounds. Continue air mattress bed, vitamins and wound care. 10. Urinary retention. Continue Maharaj to gravity. Previously seen by Dr. Villanueva. 11. Diskitis and osteomyelitis of the spine. May consider MRI. In the meantime, remains on antibio tics. Make sure the patient is comfortable at all times. stage manager is contacting regarding transfer. Dictated By: GLORIA KAN/NTS Conf#: [id number] DID#: [id number] CC: SILVIA CYR MD;*EndCC*
[2019-06-25] MEDS: FAMOTIDINE 20 MG TAB GTB SCH (21:00)
[2019-06-25] MEDS: ATORVASTATIN 10 MG TAB GTB SCH (21:00)
[2019-06-26] VITALS (19 sets, daily range): BP systolic 147–167; BP diastolic 66–75; PULSE 76–80; RESP 18–30
[2019-06-26] MEDS: ACCU-CHEK XX SCH (02:00)
[2019-06-26] MEDS: DILTIAZEM 60 MG TAB GTB SCH ×3 (05:39→21:31)
[2019-06-26] MEDS: LEVOTHYROXINE 150 MCG TAB PEG SCH (05:40)
[2019-06-26] MEDS: LORAZEPAM 0.5 MG TAB PO PRN ×2 (05:40→05:50)
[2019-06-26] MEDS: INSULIN ASPART [NOVOLOG] 3 ML PEN SC SCH ×5 (05:41→23:30)
[2019-06-26] MEDS: FOLIC ACID 1 MG TAB GTB SCH (08:16)
[2019-06-26] MEDS: FINASTERIDE 5 MG TAB GTB SCH (08:17)
[2019-06-26] MEDS: LORATADINE 10 MG TAB GTB SCH (08:17)
[2019-06-26] MEDS: ASCORBIC ACID 250 MG TAB GTB SCH (08:17)
[2019-06-26] MEDS: LIOTHYRONINE 5 MCG TAB PEG SCH (08:17)
[2019-06-26] MEDS: MULTIVITAMINS THERAPEUTIC TAB PO SCH (08:17)
[2019-06-26] MEDS: ASPIRIN 81 MG TAB GTB SCH (08:18)
[2019-06-26] MEDS: CHLORHEXIDINE GLUCONATE 15 ML UD CUP MM SCH ×2 (08:18→21:30)
[2019-06-26] MEDS: LEVETIRACETAM 1000 MG (PMX) 100 ML IVPB SCH ×2 (08:23→21:46)
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
[2019-06-26] MEDS: COLISTIMETHATE (25 MG/ML INHAL SYG) INH SCH ×2 (12:20→20:03)
--- NOTE | 2019-06-26 14:19 | PN ---
DATE: 06/26/2019 The patient seems alert, no acute events. Currently patient has been placed on CPAP and appears to b e comfortable. PHYSICAL EXAMINATION: VITAL SIGNS: Temperature 98.2, pulse 76, respirations 20, blood pressure 140/60, saturation 96%. GENERAL: No acute distress. Patient is pale. Mouth is open. CARDIOVASCULAR: S1, S2. LUNGS: Faint rhonchi. ABDOMEN: Soft, slightly distended. G-tube in place. EXTREMITIES: No clubbing, cyanosis, or edema. Scattered ecchymosis. LABORATORY DATA: No new labs today. Follow up labs tomorrow. Last glucose level 151, 113, 129 MEDICATIONS: All reviewed and include: 1. Cytomel 5 mcg daily. 2. Synthroid 150 daily. 3. Accu-Cheks as directed. 4. Lipitor 10 mg at bedtime. 5. Pepcid 20 at bedtime. 6. Coreg 12.5 b.i.d. 7. Hydralazine 25 t.i.d. and p.r.n. 8. Vitamin C 250 daily. 9. Aspirin 81 mg daily. 10. Peridex b.i.d. 11. Colistin inhalations b.i.d. 12. Proscar 5 mg daily. 13. Folic acid 1 mg daily. 14. Claritin mg daily. 15. Multivitamin 1 tablet daily. 16. Keppra 1000 IV q.12h. 17. Cardizem 30 mg q.8h. 18. Tobramycin IV dose per pharmacy. 19. Albuterol as directed. 20. Hyperglycemia protocol as directed. 21. Ativan. 22. Zofran as directed. ASSESSMENT AND PLAN: This is an 88-year-old male with history of diabetes mellitus, gastroesophageal reflux dise ase, atrial fibrillation, dysphagia, G-tube feeding, ventilator dependent respiratory failure. Pleur al effusion was recently treated for UTI and pneumonia. Unfortunately, status post status epilepticu s. 1. Respiratory. Stable. Continue CPAP trials and weaning per pulmonology, remains on antibiotics f or treatment for pneumonia, does have some left pleural effusion. Observe. Follow up chest x-ray. 2. Cardiovascular. Stable. Continue aspirin and statin. 3. Encephalopathy, back to baseline. 4. Status epilepticus on Keppra. 5. Hypothyroidism, on Cytomel and Synthroid. Status post treatment for myxoma coma. 6. Dysphagia. G-tube feeding, tolerating it well. 7. Multiple wounds. Add Zinc sulfate. I appreciate wound care consult. 8. Anemia. Transfuse p.r.n. Currently, no evidence of bleeding, may transfuse if hemoglobin less t arce 7.5. 9. Possible transfer to [facility] such as [place] is pending. 10. Urinary retention. Continue Maharaj to gravity. 11. Diskitis, possible osteomyelitis. ID is following. May consider MRI of the spine. Remains sta ble. Make sure patient is comfortable. We will follow. Dictated By: GLORIA KAN/ADENIKE Conf#: [id number] DID#: [id number]
[2019-06-26] MEDS: ZINC SULFATE 220 MG CAP GTB SCH (15:43)
--- NOTE | 2019-06-26 15:56 | CONS ---
Assessment/Plan Assessment/Plan Hospital Course (Demo Recall) ID PROGRESS NOTE CURRENT ABX: DAY # => Tobra IV + Colistin INH 06/25/19 0614 06/25/19 0614 24H INTERVAL SUMMARY * Noncommunicative on the Vent, no fevers, looks comfortable DIAGNOSTIC IMAGING * 06/24/19 CXR: Interval increase in size of at least moderate left pleural effusion. The underlying left lower lung field remains obscured, for which underlying airspace disease is not excluded.The balance of the exam is otherwise unchanged.Stable cardiomegaly and mild interstitial prominence. Aortic atherosclerotic calcification. MICRO * 06/23/19 (-)C.Diff PHYSICAL EXAMINATION: GENERAL: VSS, NAD HEENT: AT, NC, NECK: Supple, Trach secure to Vent CHEST: Rise symmetrical HEART: Pulse RRR ABDOMEN: Peg EXTREMITIES: Warm, dry SKIN: No rash, no diaphoresis ID ASSESSMENT 88 yo M admit with: 1. Seizure disorder 2. 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 Resolving pneumonia 4. Encephalopathy 5. Diabetes 6. Atrial fibrillation 7. Multiple wounds 8. Urinary retention 9. s/p UTI (-) MRSA Nares ABX ALLERGIES: KNDA INVASIVES: CURRENT ABX: DAY # => Tobra IV + Colistin INH ID RECOMMENDATIONS/PLAN: 1. Avoid carbapenem ABX due to SZS 2. Was on Vanco IV for spinal osteomyelitis concern, now OFF -- Does he need alternative coverage for STAPH? * Will defer to future discussion with Dr. Rdz and ID EDITORIAL SPECIALIST Colleague to f/u -- Does he need Dapto? * Per notes, plan is to keep him comfortable at this time -- unclear what goals of care are. . Consultation Date/Type/Reason Admit Date/Time Jun 23, 2019 at 00:53 Initial Consult Date 06/24/19 Requesting Provider: GLORIA RZD MD Date/Time of Note DATE: 06/26/19 TIME: 15:46 Exam/Review of Systems Exam Vitals Vital Signs Date Temp Pulse Resp B/P (MAP) Pulse Ox O2 O2 Flow FiO2 Time Delivery Rate 06/26/19 75 28 100 30 13:22 06/26/19 98.2 148/68 Trach 12:02 (94) Collar Intake and Output 06/25/19 06/25/19 06/26/19 1515:00 23:00 07:00 IntakeIntake Total 100 ml 1000 ml BalanceBalance 100 ml 1000 ml Results Result Diagram: 06/25/19 0614 06/25/19 0614 Results 24hrs Laboratory Tests Test 06/25/19 17:40 06/26/19 00:30 06/26/19 05:41 06/26/19 11:58 Bedside Glucose 119 129 113 151 Medications Medication Current Medications Acetaminophen (Tylenol Liquid) 650 mg Q4H PRN GTB MILD PAIN(1-3) OR TEMP>38C; Start 06/23/19 at 03:30 Ascorbic Acid (Vitamin C) 250 mg DAILY GTB Last administered on 06/26/19 08:17; Admin Dose 250 MG; Start 06/23/19 at 09:00 Aspirin (Aspirin) 81 mg DAILY GTB Last administered on 06/26/19 08:18; Admin Dose 81 MG; Start 06/23/19 at 09:00 Atorvastatin Calcium (Lipitor) 10 mg QHS GTB Last administered on 06/25/19 21:00; Admin Dose 10 MG; Start 06/23/19 at 21:00 Bisacodyl (Dulcolax) 10 mg DAILY PRN PO CONSTIPATION; Start 06/23/19 at 03:30; Status Hold Chlorhexidine Gluconate (Peridex) 15 ml BID MM Last administered on 06/26/19 08:18; Admin Dose 15 ML; Start 06/23/19 at 09:00 Colistimethate Sodium (Colistin Inhal) 75 mg BID INH Last administered on 06/26/19 12:20; Admin Dose 75 MG; Start 06/23/19 at 09:00 Diltiazem HCl (Cardizem) 30 mg Q8 GTB Last administered on 06/26/19 13:08; Admin Dose 30 MG; Start 06/23/19 at 06:00 Famotidine (Pepcid) 20 mg QHS GTB Last administered on 06/25/19 21:00; Admin Dose 20 MG; Start 06/23/19 at 21:00 Finasteride (Proscar) 5 mg DAILY GTB Last administered on 06/26/19 08:17; Admin Dose 5 MG; Start 06/23/19 at 09:00 Folic Acid (Folic Acid) 1 mg DAILY GTB Last administered on 06/26/19 08:16; Admin Dose 1 MG; Start 06/23/19 at 09:00 Loratadine (Claritin) 10 mg DAILY GTB Last administered on 06/26/19at 08:17; Admin Dose 10 MG; Start 06/23/19 at 09:00 Lorazepam (Ativan) 0.5 mg Q4H PRN PO AGITATION/ANXIETY Last administered on 06/26/19at 05:50; Admin Dose 0.5 MG; Start 06/23/19 at 03:30 Multivitamins Therapeutic (Theragran) 1 tab DAILY PO Last administered on 06/26/19at 08:17; Admin Dose 1 TAB; Start 06/23/19 at 09:00 Lorazepam (Ativan) 2 mg Q3H PRN IV SEIZURES Last administered on 06/25/19at 04:42; Admin Dose 2 MG; Start 06/23/19 at 03:30 Ondansetron HCl (Zofran Inj) 4 mg Q6H PRN IV NAUSEA AND/OR VOMITING; Start 06/23/19 at 03:30 Tobramycin (Tobramycin Iv Per Pharmacy) TOBRAMYCIN PER PHARMACY NOTE XX ; Start 06/23/19 at 03:30 Miscellaneous Information (Pending [facility] Order For Wound Care) This patient mcqueen... PRN PRN XX WOUND CARE; Start 06/23/19 at 03:30 Diagnostic Test (Pha) (Accu-Chek) 1 ea 02 XX ; Start 06/24/19 at 02:00 Insulin Aspart (Novolog Insulin Pen) NOVOLOG *MODERATE* ALGORI... Q6 SC Last administered on 06/26/19at 12:17; Admin Dose 2 UNIT; Start 06/23/19 at 06:00 Miscellaneous Information 1 ea NOTE XX ; Start 06/23/19 at 04:00 Glucose (Glutose) 15 gm Q15M PRN PO DECREASED GLUCOSE; Start 06/23/19 at 04:00 Glucose (Glutose) 22.5 gm Q15M PRN PO DECREASED GLUCOSE; Start 06/23/19 at 04:00 Dextrose (D50w Syringe) 25 ml Q15M PRN IV DECREASED GLUCOSE; Start 06/23/19 at 04:00 Dextrose (D50w Syringe) 50 ml Q15M PRN IV DECREASED GLUCOSE; Start 06/23/19 at 04:00 Glucagon (Glucagen) 1 mg Q15M PRN IM DECREASED GLUCOSE; Start 06/23/19 at 04:00 Glucose (Glutose) 15 gm Q15M PRN BUCCAL DECREASED GLUCOSE; Start 06/23/19 at 04:00 Magnesium Hydroxide (Milk Of Mag) 30 ml DAILY PRN PO CONSTIPATION; Start 06/23/19 at 04:00 Tobramycin 320 mg/ Sodium Chloride 108 ml @ 100 mls/hr Q48H IVPB Last administered on 06/25/19 05:04; Admin Dose 100 MLS/HR; Start 06/23/19 at 06:00 Levetiracetam 100 ml @ 400 mls/hr Q12 IVPB Last administered on 06/26/19at 08:23; Admin Dose 400 MLS/HR; Start 06/23/19 at 09:00 Albuterol (Ventolin Hfa) 4 puff Q4H RESP THERAPY PRN INH SHORTNESS OF BREATH; Start 06/23/19 at 06:00 Levothyroxine Sodium (Synthroid) 150 mcg BEFORE BREAKFAST PEG Last administered on 06/26/19at 05:40; Admin Dose 150 MCG; Start 06/24/19 at 07:00 Liothyronine Sodium (Cytomel) 5 mcg DAILY PEG Last administered on 06/26/19at 08:17; Admin Dose 5 MCG; Start 06/24/19 at 09:00 Carvedilol (Coreg) 12.5 mg BID GTB Last administered on 06/26/19at 08:18; Admin Dose 12.5 MG; Start 06/23/19 at 21:00 Hydralazine HCl (Apresoline) 25 mg TID PO Last administered on 06/26/19at 13:07; Admin Dose 25 MG; Start 06/23/19 at 15:30 Hydralazine HCl (Apresoline) 10 mg Q4H PRN IV sbp >165; Start 06/23/19 at 15:30 Miscellaneous Information (*Rx Drug Level Order Reminder*) TOBRA TR 0400 ONCE XX ; Start 06/27/19 at 04:00; Stop 06/27/19 at 04:01 Zinc Sulfate (Zinc Sulfate) 220 mg DAILY GTB Last administered on 06/26/19at 15:43; Admin Dose 220 MG; Start 06/26/19 at 14:00 NOEL COX NP Jun 26, 2019 15:56
[2019-06-26] MEDS: FAMOTIDINE 20 MG TAB GTB SCH (21:30)
[2019-06-26] MEDS: ATORVASTATIN 10 MG TAB GTB SCH (21:32)
[2019-06-27] VITALS (18 sets, daily range): BP systolic 121–168; BP diastolic 60–68; PULSE 62–75; RESP 16–31
[2019-06-27] MEDS: ACCU-CHEK XX SCH (02:00)
[2019-06-27] MEDS: INSULIN ASPART [NOVOLOG] 3 ML PEN SC SCH ×3 (06:00→17:42)
[2019-06-27] MEDS: DILTIAZEM 60 MG TAB GTB SCH ×3 (06:18→22:07)
[2019-06-27] MEDS: TOBRAMYCIN 320 MG in SOD CHLORIDE 0.9% 100 ML IVPB SCH (06:19)
[2019-06-27] MEDS: LEVOTHYROXINE 150 MCG TAB PEG SCH (06:21)
[2019-06-27] MEDS: FINASTERIDE 5 MG TAB GTB SCH (09:00)
[2019-06-27] MEDS: COLISTIMETHATE (25 MG/ML INHAL SYG) INH SCH ×2 (09:00→20:37)
[2019-06-27] MEDS: LEVETIRACETAM 1000 MG (PMX) 100 ML IVPB SCH ×2 (10:11→22:02)
[2019-06-27] MEDS: ASPIRIN 81 MG TAB GTB SCH (10:15)
[2019-06-27] MEDS: LIOTHYRONINE 5 MCG TAB PEG SCH (10:15)
[2019-06-27] MEDS: ZINC SULFATE 220 MG CAP GTB SCH (10:15)
[2019-06-27] MEDS: ASCORBIC ACID 250 MG TAB GTB SCH (10:16)
[2019-06-27] MEDS: LORATADINE 10 MG TAB GTB SCH (10:17)
[2019-06-27] MEDS: FOLIC ACID 1 MG TAB GTB SCH (10:17)
[2019-06-27] MEDS: MULTIVITAMINS THERAPEUTIC TAB PO SCH (10:17)
[2019-06-27] MEDS: CHLORHEXIDINE GLUCONATE 15 ML UD CUP MM SCH ×2 (10:21→22:01)
--- NOTE | 2019-06-27 16:00 | CONS ---
Consult Date/Type/Reason Admit Date/Time Jun 23, 2019 at 00:53 Initial Consult Date 06/24/19 Type of Consultation: Pulm Requesting Provider: GLORIA KWON MD Date/Time of Note DATE: 06/27/19 TIME: 15:57 Subjective No events overnight. Tolerated CPAP 5 PS 10. Objective Vitals Vital Signs Date Temp Pulse Resp B/P (MAP) Pulse Ox O2 O2 Flow FiO2 Time Delivery Rate 06/27/19 75 16 168/68 CPAP 13:36 (101) 06/27/19 97.8 100 11:37 06/27/19 30 11:21 Intake and Output 06/26/19 06/26/19 06/27/19 1515:00 23:00 07:00 IntakeIntake Total 100 ml 1000 ml BalanceBalance 100 ml 1000 ml Exam HEENT: Neck supple; no JVD; no LAD; trach site clean CVS: Irreg, S1 and S2 CHEST: Clear ABD: Soft, NT, + BS EXT: No c/c/e Results/Medications Result Diagram: 06/27/19 0357 06/27/19 0357 Results 24 hrs Laboratory Tests Test 06/26/19 17:20 06/26/19 23:22 06/27/19 03:57 06/27/19 05:51 Bedside Glucose 130 119 116 White Blood Count 13.7 H Red Blood Count 2.32 L Hemoglobin 7.0 L Hematocrit 21.6 L Mean Corpuscular Volume 93.1 Mean Corpuscular 30.2 Hemoglobin Mean Corpuscular 32.4 Hemoglobin Concent Red Cell Distribution 16.3 H Width Platelet Count 216 Mean Platelet Volume 11.6 H Immature Granulocytes % 0.500 H Neutrophils % 67.7 Lymphocytes % 13.4 L Monocytes % 14.2 H Eosinophils % 3.9 Basophils % 0.3 Nucleated Red Blood 0.0 Cells % Immature Granulocytes # 0.070 H Neutrophils # 9.3 H Lymphocytes # 1.8 Monocytes # 2.0 H Eosinophils # 0.5 Basophils # 0.0 Nucleated Red Blood 0.0 Cells # Sodium Level 137 Potassium Level 5.0 Chloride Level 105 Carbon Dioxide Level 26 Anion Gap 6 Blood Urea Nitrogen 41 H Creatinine 1.51 H Est Glomerular Filtrat Rate mL/min Glucose Level 123 Calcium Level 8.6 Phosphorus Level 3.5 Magnesium Level 2.1 Tobramycin Level Trough 2.3 *H Home Meds Reported Medications Levetiracetam* (Keppra*) 500 Mg/5 Ml Solution, 1000 MG IVPB BID, BOTTLE 06/23/19 Magnesium Hydroxide (Milk of Magnesia) 2,400 Mg/10 Ml Oral.susp, 400 MG GTB PRN for CONSTIPATION 06/23/19 Colistimethate Sodium (Coly-Mycin M) 150 Mg Soln, 75 MG IJ 06/23/19 Diltiazem Hcl (Cardizem) 60 Mg Tablet, 30 MG PO Q8, #120 TAB 06/23/19 Chlorhexidine Gluconate (Peridex) 473 Ml Mouthwash, 15 ML MM BID, BOTTLE 06/23/19 Acetaminophen* (Acetaminophen* Susp) 325 Mg/10.15 Ml Solution, 650 MG GTB Q4H PRN for PAIN OR TEMP ABOVE 38C, ML 06/23/19 Ondansetron Hcl* (Zofran*) 4 Mg Tab, 4 MG IVP Q6H PRN for NAUSEA AND OR VOMITING, TAB 06/23/19 Multivitamins* (Theragran*) 1 Tab Tab, 1 TAB PO DAILY, TAB 06/23/19 Lorazepam* (Ativan*) 2 Mg Tablet, 2 MG IVP Q3H PRN for SEIZURES, #60 TAB 06/23/19 Lorazepam* (Lorazepam*) 0.5 Mg Tablet, 0.5 MG PO Q4 PRN for AGITATION/ANXIETY, TAB 06/23/19 Loratadine* (Loratadine*) 10 Mg Tablet, 10 MG GTB DAILY, #30 TAB 06/23/19 Liothyronine Sodium* (Cytomel*) 5 Mcg Tablet, 5 MCG PO DAILY, TAB 06/23/19 Levothyroxine Sodium* (Levothyroxine Sodium*) 150 Mcg Tablet, 150 MCG PO BEFORE BREAKFAST, #30 TAB 06/23/19 Folic Acid* (Folic Acid*) 1 Mg Tablet, 1 MG GTB DAILY, TAB 06/23/19 Finasteride* (Finasteride*) 5 Mg Tablet, 5 MG GTB DAILY, TAB 06/23/19 Famotidine* (Famotidine*) 20 Mg Tablet, 20 MG GTB QHS, #30 TAB 06/23/19 Carvedilol* (Carvedilol*) 6.25 Mg Tablet, 6.25 MG G-TUBE BID, #60 TAB 06/23/19 Bisacodyl* (Bisacodyl*) 5 Mg Tablet.dr, 10 MG MT DAILY PRN for CONSTIPATION, TAB 06/23/19 Atorvastatin (Atorvastatin) 10 Mg Tablet, 10 MG GTB QHS, #30 TAB 06/23/19 Aspirin* (Aspirin* Chew) 81 Mg Tab.chew, 81 MG GTB DAILY, TAB.CHEW 06/23/19 Ascorbic Acid (Vitamin C) 250 Mg Tab, 250 MG G-TUBE DAILY, TAB 06/23/19 Albuterol Sulfate (Proair Respiclick) 90 Mcg Aer.pow.ba, 4 PUFF INHALATION Q4 PRN for SHORTNESS OF BREATH, #1 BOTTLE 06/23/19 Discontinued Reported Medications Levetiracetam* (Keppra* IV) 500 Mg/5 Ml Soln, 10 MG IVPB Q12, EA DILUTE IN 100 ML NS 06/23/19 Medications Current Medications Acetaminophen (Tylenol Liquid) 650 mg Q4H PRN GTB MILD PAIN(1-3) OR TEMP>38C; Start 06/23/19 at 03:30 Ascorbic Acid (Vitamin C) 250 mg DAILY GTB Last administered on 06/27/19 10:16; Admin Dose 250 MG; Start 06/23/19 at 09:00 Aspirin (Aspirin) 81 mg DAILY GTB Last administered on 06/27/19 10:15; Admin Dose 81 MG; Start 06/23/19 at 09:00 Atorvastatin Calcium (Lipitor) 10 mg QHS GTB Last administered on 06/26/19at 21:32; Admin Dose 10 MG; Start 06/23/19 at 21:00 Bisacodyl (Dulcolax) 10 mg DAILY PRN PO CONSTIPATION; Start 06/23/19 at 03:30; Status Hold Chlorhexidine Gluconate (Peridex) 15 ml BID MM Last administered on 06/27/19 10:21; Admin Dose 15 ML; Start 06/23/19 at 09:00 Colistimethate Sodium (Colistin Inhal) 75 mg BID INH Last administered on 06/26/19 20:03; Admin Dose 75 MG; Start 06/23/19 at 09:00 Diltiazem HCl (Cardizem) 30 mg Q8 GTB Last administered on 06/27/19 13:36; Admin Dose 30 MG; Start 06/23/19 at 06:00 Famotidine (Pepcid) 20 mg QHS GTB Last administered on 06/26/19 21:30; Admin Dose 20 MG; Start 06/23/19 at 21:00 Finasteride (Proscar) 5 mg DAILY GTB Last administered on 06/27/19 09:00; Admin Dose 5 MG; Start 06/23/19 at 09:00 Folic Acid (Folic Acid) 1 mg DAILY GTB Last administered on 06/27/19 10:17; Admin Dose 1 MG; Start 06/23/19 at 09:00 Loratadine (Claritin) 10 mg DAILY GTB Last administered on 06/27/19 10:17; Admin Dose 10 MG; Start 06/23/19 at 09:00 Lorazepam (Ativan) 0.5 mg Q4H PRN PO AGITATION/ANXIETY Last administered on 06/26/19 05:50; Admin Dose 0.5 MG; Start 06/23/19 at 03:30 Multivitamins Therapeutic (Theragran) 1 tab DAILY PO Last administered on 06/27/19 10:17; Admin Dose 1 TAB; Start 06/23/19 at 09:00 Lorazepam (Ativan) 2 mg Q3H PRN IV SEIZURES Last administered on 06/25/19 04:42; Admin Dose 2 MG; Start 06/23/19 at 03:30 Ondansetron HCl (Zofran Inj) 4 mg Q6H PRN IV NAUSEA AND/OR VOMITING; Start 06/23/19 at 03:30 Tobramycin (Tobramycin Iv Per Pharmacy) TOBRAMYCIN PER PHARMACY NOTE XX ; Start 06/23/19 at 03:30 Miscellaneous Information (Pending Santyl Order For Wound Care) This patient mcqueen... PRN PRN XX WOUND CARE; Start 06/23/19 at 03:30 Diagnostic Test (Pha) (Accu-Chek) 1 ea 02 XX ; Start 06/24/19 at 02:00 Insulin Aspart (Novolog Insulin Pen) NOVOLOG *MODERATE* ALGORI... Q6 SC Last administered on 06/26/19 12:17; Admin Dose 2 UNIT; Start 06/23/19 at 06:00 Miscellaneous Information 1 ea NOTE XX ; Start 06/23/19 at 04:00 Glucose (Glutose) 15 gm Q15M PRN PO DECREASED GLUCOSE; Start 06/23/19 at 04:00 Glucose (Glutose) 22.5 gm Q15M PRN PO DECREASED GLUCOSE; Start 06/23/19 at 04:00 Dextrose (D50w Syringe) 25 ml Q15M PRN IV DECREASED GLUCOSE; Start 06/23/19 at 04:00 Dextrose (D50w Syringe) 50 ml Q15M PRN IV DECREASED GLUCOSE; Start 06/23/19 at 04:00 Glucagon (Glucagen) 1 mg Q15M PRN IM DECREASED GLUCOSE; Start 06/23/19 at 04:00 Glucose (Glutose) 15 gm Q15M PRN BUCCAL DECREASED GLUCOSE; Start 06/23/19 at 04:00 Magnesium Hydroxide (Milk Of Mag) 30 ml DAILY PRN PO CONSTIPATION; Start 06/23/19 at 04:00 Levetiracetam 100 ml @ 400 mls/hr Q12 IVPB Last administered on 06/27/19at 10:11; Admin Dose 400 MLS/HR; Start 06/23/19 at 09:00 Albuterol (Ventolin Hfa) 4 puff Q4H RESP THERAPY PRN INH SHORTNESS OF BREATH; Start 06/23/19 at 06:00 Levothyroxine Sodium (Synthroid) 150 mcg BEFORE BREAKFAST PEG Last administered on 06/27/19at 06:21; Admin Dose 150 MCG; Start 06/24/19 at 07:00 Liothyronine Sodium (Cytomel) 5 mcg DAILY PEG Last administered on 06/27/19at 10:15; Admin Dose 5 MCG; Start 06/24/19 at 09:00 Carvedilol (Coreg) 12.5 mg BID GTB Last administered on 06/27/19at 10:16; Admin Dose 12.5 MG; Start 06/23/19 at 21:00 Hydralazine HCl (Apresoline) 25 mg TID PO Last administered on 06/27/19at 12:40; Admin Dose 25 MG; Start 06/23/19 at 15:30 Hydralazine HCl (Apresoline) 10 mg Q4H PRN IV sbp >165; Start 06/23/19 at 15:30 Zinc Sulfate (Zinc Sulfate) 220 mg DAILY GTB Last administered on 06/27/19at 10:15; Admin Dose 220 MG; Start 06/26/19 at 14:00 Tobramycin 130 mg/ Sodium Chloride 103.25 ml @ 103.75 mls/hr Q36H IVPB ; Start 06/30/19 at 06:00 Furosemide (Lasix) 20 mg ONCE ONCE IV Last administered on 06/27/19at 15:38; Admin Dose 20 MG; Start 06/27/19 at 16:30; Stop 06/27/19 at 16:31 Assessment/Plan Assessment/Plan (Daily) IMP: 1. Seizure with status epilepticus--now resolved 2. VDRF 3. P-Afib 4. Encephalopathy 5. Anemia 6. Hypothyroidism 7. Recent UTI 8. Left pleural effusion 9. COPD RECS: 1. Wean to trach collar in am 2. Continue anti-epileptic Rx 3. Continue synthroid ELLIE MUNGUIA MD Jun 27, 2019 16:00
[2019-06-27] MEDS ORDERED: FUROSEMIDE 20 MG INJ IV ONE ×2 (16:30→19:30)
--- NOTE | 2019-06-27 16:39 | PN ---
DATE: 06/27/2019 SUBJECTIVE: The patient was seen. H and H is lower. We will transfuse 2 units of PRBCs. Hemoglobi n is 7, hematocrit is 21.6. This patient has history of atrial fibrillation and he is anticoagulated , currently on aspirin. OBJECTIVE: VITAL SIGNS: Temperature 97.8, pulse 74, respirations 16, blood pressure 116/68, earlier was 128/60, saturation 100% on CPAP trials. GENERAL: Clinically, the patient has been stable, in no acute distress. HEENT: The patient is pale. CARDIOVASCULAR: S1, S2. LUNGS: Faint rhonchi at the bases. ABDOMEN: Soft, slightly distended. EXTREMITIES: No clubbing, cyanosis or edema. LABORATORY DATA: White count 13.7, hemoglobin 7, hematocrit 22, platelet count 216, neutrophils 68%, lymphs at 13%. Chemistry: Sodium 137, potassium 5.0, chloride 105, bicarb 26, BUN 41, creatinine 1 .51 and glucose of 123. Last glucose level of 116. Stool for C. diff on 06/23/2019 is negative. MEDICATIONS: Include: 1. Tobramycin IV dose per pharmacy. 2. Lasix IV x1 to be given after the first unit of blood. 3. Zinc sulfate 220 daily. 4. Cytomel 5 mcg daily. 5. Synthroid 150 mcg daily. 6. Lipitor 10 mg at bedtime. 7. Pepcid 20 at bedtime. 8. Coreg 12.5 b.i.d. 9. Hydralazine 25 t.i.d. 10. Vitamin C 250 daily. 11. Aspirin 81 mg daily. 12. Peridex 15 mL b.i.d. 13. Colistin 75 inhalation b.i.d. 14. Proscar 5 mg daily. 15. Folic acid 1 mg daily. 16. Multivitamin 1 tab daily. 17. Keppra 1000 twice a day IV. 18. Cardizem 30 mg q.i.d. 19. Insulin per sliding scale. 20. Albuterol as directed. 21. Hyperglycemia protocol as directed. 22. Ativan p.r.n. 23. Zofran p.r.n. ASSESSMENT AND PLAN: This is an 88-year-old male with history of diabetes mellitus, gastro esophageal reflux disease, atrial fibrillation, dysphagia, G-tube feeding, ventilatory dependent resp iratory failure, pleural effusion, who has been treated recently for urinary tract infection and pneu monia unfortunately, status epilepticus and brief transfer to [facility]. 1. Respiratory: Continue CPAP trials. Pulmonary is following. Remains on antibiotics for pneumoni a. 2. Cardiovascular: Stable. Continue aspirin and statin. 3. Anemia. Transfuse 2 units of packed red blood cells. 4. Encephalopathy, back to baseline. 5. Status epilepticus, now on Keppra. 6. Hypothyroidism with recent bout of myxedema coma. Continue Cytomel and Synthroid. TSH to follow . 7. Dysphagia. Continue G-tube feeding, tolerating it well. 8. Multiple wounds. Continue zinc sulfate, vitamins and wound care. 9. Possible transfer to [facility] for ongoing medical management. 10. Urinary retention. Continue Maharaj to gravity. 11. 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 ID is following. Remains on antibiotics. May consider MR I of the spine. We will follow. Dictated By: GLORIA KAN/ADENIKE Conf#: [id number] DID#: [id number] CC: SILVIA CYR MD;*End*
--- NOTE | 2019-06-27 20:16 | CONS ---
Assessment/Plan Assessment/Plan Hospital Course (Demo Recall) ID PROGRESS NOTE CURRENT ABX: DAY # => Tobra IV + Colistin INH 24H INTERVAL SUMMARY * PRBC TX FOR TODAY * No other new issues == clinically stable == Noncommunicative on the Vent, no fevers, looks comfortable DIAGNOSTIC IMAGING * 06/24/19 CXR: Interval increase in size of at least moderate left pleural effusion. The underlying left lower lung field remains obscured, for which underlying airspace disease is not excluded.The balance of the exam is otherwise unchanged.Stable cardiomegaly and mild interstitial prominence. Aortic atherosclerotic calcification. MICRO * 06/23/19 (-)C.Diff PHYSICAL EXAMINATION: GENERAL: VSS, NAD HEENT: AT, NC, NECK: Supple, Trach secure to Vent CHEST: Rise symmetrical HEART: Pulse RRR ABDOMEN: Peg EXTREMITIES: Warm, dry SKIN: No rash, no diaphoresis ID ASSESSMENT 88 yo M admit with: 1. Seizure disorder 2. 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 Resolving pneumonia 4. Encephalopathy 5. Diabetes 6. Atrial fibrillation 7. Multiple wounds 8. Urinary retention 9. s/p UTI (-) MRSA Nares ABX ALLERGIES: KNDA INVASIVES: CURRENT ABX: DAY # => Tobra IV + Colistin INH ID RECOMMENDATIONS/PLAN: 1. Avoid carbapenem ABX due to SZS 2. Was on Vanco IV for spinal osteomyelitis concern, now OFF -- Does he need alternative coverage for [employer]? * Will defer to future discussion with Dr. Rdz and ID DIRECTOR OF [employer]ATIONAL SALES Colleague to f/u -- Does he need Dapto? * Per notes, plan is to keep him comfortable at this time -- unclear what goals of care are. . Consultation Date/Type/Reason Admit Date/Time Jun 23, 2019 at 00:53 Initial Consult Date 06/24/19 Requesting Provider: GLORIA RDZ MD Date/Time of Note DATE: 06/27/19 TIME: 20:15 Exam/Review of Systems Exam Vitals Vital Signs Date Temp Pulse Resp B/P (MAP) Pulse Ox O2 O2 Flow FiO2 Time Delivery Rate 06/27/19 97.8 66 19 150/60 100 Mechanical 19:50 (90) Ventilator 06/27/19 30 17:20 Intake and Output 06/26/19 06/26/19 06/27/19 1515:00 23:00 07:00 IntakeIntake Total 100 ml 1000 ml BalanceBalance 100 ml 1000 ml Results Result Diagram: 06/27/19 0357 06/27/19 0357 Results 24hrs Laboratory Tests Test 06/26/19 23:22 06/27/19 03:57 06/27/19 05:51 Bedside Glucose 119 116 White Blood Count 13.7 H Red Blood Count 2.32 L Hemoglobin 7.0 L Hematocrit 21.6 L Mean Corpuscular Volume 93.1 Mean Corpuscular Hemoglobin 30.2 Mean Corpuscular Hemoglobin Concent 32.4 Red Cell Distribution Width 16.3 H Platelet Count 216 Mean Platelet Volume 11.6 H Immature Granulocytes % 0.500 H Neutrophils % 67.7 Lymphocytes % 13.4 L Monocytes % 14.2 H Eosinophils % 3.9 Basophils % 0.3 Nucleated Red Blood Cells % 0.0 Immature Granulocytes # 0.070 H Neutrophils # 9.3 H Lymphocytes # 1.8 Monocytes # 2.0 H Eosinophils # 0.5 Basophils # 0.0 Nucleated Red Blood Cells # 0.0 Sodium Level 137 Potassium Level 5.0 Chloride Level 105 Carbon Dioxide Level 26 Anion Gap 6 Blood Urea Nitrogen 41 H Creatinine 1.51 H Est Glomerular Filtrat Rate mL/min Glucose Level 123 Calcium Level 8.6 Phosphorus Level 3.5 Magnesium Level 2.1 Tobramycin Level Trough 2.3 *H Medications Medication Current Medications Acetaminophen (Tylenol Liquid) 650 mg Q4H PRN GTB MILD PAIN(1-3) OR TEMP>38C; Start 06/23/19 at 03:30 Ascorbic Acid (Vitamin C) 250 mg DAILY GTB Last administered on 06/27/19 10:16; Admin Dose 250 MG; Start 06/23/19 at 09:00 Aspirin (Aspirin) 81 mg DAILY GTB Last administered on 06/27/19 10:15; Admin Dose 81 MG; Start 06/23/19 at 09:00 Atorvastatin Calcium (Lipitor) 10 mg QHS GTB Last administered on 06/26/19 21:32; Admin Dose 10 MG; Start 06/23/19 at 21:00 Bisacodyl (Dulcolax) 10 mg DAILY PRN PO CONSTIPATION; Start 06/23/19 at 03:30; Status Hold Chlorhexidine Gluconate (Peridex) 15 ml BID MM Last administered on 06/27/19at 10:21; Admin Dose 15 ML; Start 06/23/19 at 09:00 Colistimethate Sodium (Colistin Inhal) 75 mg BID INH Last administered on 06/26/19 20:03; Admin Dose 75 MG; Start 06/23/19 at 09:00 Diltiazem HCl (Cardizem) 30 mg Q8 GTB Last administered on 06/27/19 13:36; Admin Dose 30 MG; Start 06/23/19 at 06:00 Famotidine (Pepcid) 20 mg QHS GTB Last administered on 06/26/19 21:30; Admin Dose 20 MG; Start 06/23/19 at 21:00 Finasteride (Proscar) 5 mg DAILY GTB Last administered on 06/27/19 09:00; Admin Dose 5 MG; Start 06/23/19 at 09:00 Folic Acid (Folic Acid) 1 mg DAILY GTB Last administered on 06/27/19 10:17; Admin Dose 1 MG; Start 06/23/19 at 09:00 Loratadine (Claritin) 10 mg DAILY GTB Last administered on 06/27/19 10:17; Admin Dose 10 MG; Start 06/23/19 at 09:00 Lorazepam (Ativan) 0.5 mg Q4H PRN PO AGITATION/ANXIETY Last administered on 06/26/19 05:50; Admin Dose 0.5 MG; Start 06/23/19 at 03:30 Multivitamins Therapeutic (Theragran) 1 tab DAILY PO Last administered on 06/27/19 10:17; Admin Dose 1 TAB; Start 06/23/19 at 09:00 Lorazepam (Ativan) 2 mg Q3H PRN IV SEIZURES Last administered on 06/25/19 04:42; Admin Dose 2 MG; Start 06/23/19 at 03:30 Ondansetron HCl (Zofran Inj) 4 mg Q6H PRN IV NAUSEA AND/OR VOMITING; Start 06/23/19 at 03:30 Tobramycin (Tobramycin Iv Per Pharmacy) TOBRAMYCIN PER PHARMACY NOTE XX ; Start 06/23/19 at 03:30 Miscellaneous Information (Pending Santyl Order For Wound Care) This patient mcqueen... PRN PRN XX WOUND CARE; Start 06/23/19 at 03:30 Diagnostic Test (Pha) (Accu-Chek) 1 ea 02 XX ; Start 06/24/19 at 02:00 Insulin Aspart (Novolog Insulin Pen) NOVOLOG *MODERATE* ALGORI... Q6 SC Last administered on 06/26/19at 12:17; Admin Dose 2 UNIT; Start 06/23/19 at 06:00 Miscellaneous Information 1 ea NOTE XX ; Start 06/23/19 at 04:00 Glucose (Glutose) 15 gm Q15M PRN PO DECREASED GLUCOSE; Start 06/23/19 at 04:00 Glucose (Glutose) 22.5 gm Q15M PRN PO DECREASED GLUCOSE; Start 06/23/19 at 04:00 Dextrose (D50w Syringe) 25 ml Q15M PRN IV DECREASED GLUCOSE; Start 06/23/19 at 04:00 Dextrose (D50w Syringe) 50 ml Q15M PRN IV DECREASED GLUCOSE; Start 06/23/19 at 04:00 Glucagon (Glucagen) 1 mg Q15M PRN IM DECREASED GLUCOSE; Start 06/23/19 at 04:00 Glucose (Glutose) 15 gm Q15M PRN BUCCAL DECREASED GLUCOSE; Start 06/23/19 at 04:00 Magnesium Hydroxide (Milk Of Mag) 30 ml DAILY PRN PO CONSTIPATION; Start 06/23/19 at 04:00 Levetiracetam 100 ml @ 400 mls/hr Q12 IVPB Last administered on 06/27/19at 10:11; Admin Dose 400 MLS/HR; Start 06/23/19 at 09:00 Albuterol (Ventolin Hfa) 4 puff Q4H RESP THERAPY PRN INH SHORTNESS OF BREATH; Start 06/23/19 at 06:00 Levothyroxine Sodium (Synthroid) 150 mcg BEFORE BREAKFAST PEG Last administered on 06/27/19 06:21; Admin Dose 150 MCG; Start 06/24/19 at 07:00 Liothyronine Sodium (Cytomel) 5 mcg DAILY PEG Last administered on 06/27/19at 10:15; Admin Dose 5 MCG; Start 06/24/19 at 09:00 Carvedilol (Coreg) 12.5 mg BID GTB Last administered on 06/27/19at 10:16; Admin Dose 12.5 MG; Start 06/23/19 at 21:00 Hydralazine HCl (Apresoline) 25 mg TID PO Last administered on 06/27/19at 12:40; Admin Dose 25 MG; Start 06/23/19 at 15:30 Hydralazine HCl (Apresoline) 10 mg Q4H PRN IV sbp >165; Start 06/23/19 at 15:30 Zinc Sulfate (Zinc Sulfate) 220 mg DAILY GTB Last administered on 06/27/19at 10:15; Admin Dose 220 MG; Start 06/26/19 at 14:00 Tobramycin 130 mg/ Sodium Chloride 103.25 ml @ 103.75 mls/hr Q36H IVPB ; Start 06/30/19 at 06:00 NOEL COX NP Jun 27, 2019 20:16
[2019-06-27] MEDS: FAMOTIDINE 20 MG TAB GTB SCH ×2 (22:02→22:06)
[2019-06-27] MEDS: ATORVASTATIN 10 MG TAB GTB SCH (22:02)
[2019-06-28] VITALS (14 sets, daily range): BP systolic 90–182; BP diastolic 51–76; PULSE 54–102; RESP 14–30
[2019-06-28] MEDS: ACCU-CHEK XX SCH (02:00)
[2019-06-28] MEDS: DILTIAZEM 60 MG TAB GTB SCH ×3 (06:00→22:24)
[2019-06-28] MEDS: INSULIN ASPART [NOVOLOG] 3 ML PEN SC SCH ×5 (06:00→23:24)
[2019-06-28] MEDS: LEVOTHYROXINE 150 MCG TAB PEG SCH (06:22)
[2019-06-28] MEDS: COLISTIMETHATE (25 MG/ML INHAL SYG) INH SCH ×2 (08:08→23:42)
[2019-06-28] MEDS: CHLORHEXIDINE GLUCONATE 15 ML UD CUP MM SCH ×2 (08:45→21:48)
[2019-06-28] MEDS: LORATADINE 10 MG TAB GTB SCH (08:45)
[2019-06-28] MEDS: MULTIVITAMINS THERAPEUTIC TAB PO SCH (08:45)
[2019-06-28] MEDS: ASPIRIN 81 MG TAB GTB SCH (08:46)
[2019-06-28] MEDS: ASCORBIC ACID 250 MG TAB GTB SCH (08:46)
[2019-06-28] MEDS: LIOTHYRONINE 5 MCG TAB PEG SCH ×2 (08:46→21:49)
[2019-06-28] MEDS: FOLIC ACID 1 MG TAB GTB SCH (08:46)
[2019-06-28] MEDS: ZINC SULFATE 220 MG CAP GTB SCH (08:46)
[2019-06-28] MEDS: LEVETIRACETAM 1000 MG (PMX) 100 ML IVPB SCH ×2 (08:46→21:48)
[2019-06-28] MEDS: FINASTERIDE 5 MG TAB GTB SCH (08:46)
--- NOTE | 2019-06-28 11:17 | CONS ---
Assessment/Plan Assessment/Plan Hospital Course (Demo Recall) No acute changes overnight patient Stool for C. difficile came back negative Indwelling: Trach PEG right upper extremity PICC line Antimicrobials: Tobramycin, colistin inhalation Physical examination: This is a chronically ill appearing elderly man who is in no distress head atraumatic normocephalic neck is supple chest rise symmetrical breath sounds diminished bases heart S1-S2 abdomen soft bowel sounds present extremities without cyanosis Assessment: 1. Seizure disorder 2. 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 Resolving pneumonia 4. Encephalopathy 5. Diabetes 6. Atrial fibrillation Plan: Clinically unchanged, change abx to Daptomycin and Azactam to treat for spinal discitis/OM, pending MRI Consultation Date/Type/Reason Admit Date/Time Jun 23, 2019 at 00:53 Initial Consult Date 06/24/19 Type of Consult id Requesting Provider: GLORIA KWON MD Date/Time of Note DATE: 06/28/19 TIME: 11:16 Exam/Review of Systems Exam Vitals Vital Signs Date Temp Pulse Resp B/P (MAP) Pulse Ox O2 O2 Flow FiO2 Time Delivery Rate 06/28/19 97.7 54 20 120/56 100 08:06 (77) 06/28/19 30 04:50 06/28/19 Mechanical 04:28 Ventilator Intake and Output 06/27/19 06/27/19 06/28/19 1515:00 23:00 07:00 IntakeIntake Total 100 ml 420 ml 650 ml BalanceBalance 100 ml 420 ml 650 ml Results Result Diagram: 06/28/19 0628 06/28/19 0628 Results 24hrs Laboratory Tests Test 06/28/19 01:00 06/28/19 06:19 06/28/19 06:28 Bedside Glucose 113 114 White Blood Count 12.7 H Red Blood Count 3.32 #L Hemoglobin 9.9 #L Hematocrit 30.0 #L Mean Corpuscular Volume 90.4 Mean Corpuscular Hemoglobin 29.8 Mean Corpuscular Hemoglobin Concent 33.0 Red Cell Distribution Width 16.2 H Platelet Count 225 Mean Platelet Volume 11.7 H Immature Granulocytes % 0.600 H Neutrophils % 66.9 Lymphocytes % 13.9 L Monocytes % 13.7 H Eosinophils % 4.6 Basophils % 0.3 Nucleated Red Blood Cells % 0.0 Immature Granulocytes # 0.080 H Neutrophils # 8.5 H Lymphocytes # 1.8 Monocytes # 1.7 H Eosinophils # 0.6 H Basophils # 0.0 Nucleated Red Blood Cells # 0.0 Sodium Level 138 Potassium Level 5.5 H Chloride Level 103 Carbon Dioxide Level 29 Anion Gap 6 Blood Urea Nitrogen 45 H Creatinine 1.76 H Est Glomerular Filtrat Rate mL/min Glucose Level 107 Calcium Level 9.1 Phosphorus Level 4.3 Magnesium Level 2.2 Thyroid Stimulating Hormone (TSH) 42.700 H Free Thyroxine 0.82 L Free Triiodothyronine (T3) pg/mL 2.19 L Medications Medication Current Medications Acetaminophen (Tylenol Liquid) 650 mg Q4H PRN GTB MILD PAIN(1-3) OR TEMP>38C; Start 06/23/19 at 03:30 Ascorbic Acid (Vitamin C) 250 mg DAILY GTB Last administered on 06/28/19 08:46; Admin Dose 250 MG; Start 06/23/19 at 09:00 Aspirin (Aspirin) 81 mg DAILY GTB Last administered on 06/28/19 08:46; Admin Dose 81 MG; Start 06/23/19 at 09:00 Atorvastatin Calcium (Lipitor) 10 mg QHS GTB Last administered on 06/27/19 22:02; Admin Dose 10 MG; Start 06/23/19 at 21:00 Bisacodyl (Dulcolax) 10 mg DAILY PRN PO CONSTIPATION; Start 06/23/19 at 03:30; Status Hold Chlorhexidine Gluconate (Peridex) 15 ml BID MM Last administered on 06/28/19 08:45; Admin Dose 15 ML; Start 06/23/19 at 09:00 Colistimethate Sodium (Colistin Inhal) 75 mg BID INH Last administered on 06/28/19 08:08; Admin Dose 75 MG; Start 06/23/19 at 09:00 Diltiazem HCl (Cardizem) 30 mg Q8 GTB Last administered on 06/27/19 22:07; Admin Dose 30 MG; Start 06/23/19 at 06:00 Famotidine (Pepcid) 20 mg QHS GTB Last administered on 06/27/19 22:06; Admin Dose 20 MG; Start 06/23/19 at 21:00 Finasteride (Proscar) 5 mg DAILY GTB Last administered on 06/28/19 08:46; Admin Dose 5 MG; Start 06/23/19 at 09:00 Folic Acid (Folic Acid) 1 mg DAILY GTB Last administered on 06/28/19at 08:46; Admin Dose 1 MG; Start 06/23/19 at 09:00 Loratadine (Claritin) 10 mg DAILY GTB Last administered on 06/28/19at 08:45; Admin Dose 10 MG; Start 06/23/19 at 09:00 Lorazepam (Ativan) 0.5 mg Q4H PRN PO AGITATION/ANXIETY Last administered on 06/26/19at 05:50; Admin Dose 0.5 MG; Start 06/23/19 at 03:30 Multivitamins Therapeutic (Theragran) 1 tab DAILY PO Last administered on 06/28/19at 08:45; Admin Dose 1 TAB; Start 06/23/19 at 09:00 Lorazepam (Ativan) 2 mg Q3H PRN IV SEIZURES Last administered on 06/25/19at 04:42; Admin Dose 2 MG; Start 06/23/19 at 03:30 Ondansetron HCl (Zofran Inj) 4 mg Q6H PRN IV NAUSEA AND/OR VOMITING; Start 06/23/19 at 03:30 Tobramycin (Tobramycin Iv Per Pharmacy) TOBRAMYCIN PER PHARMACY NOTE XX ; Start 06/23/19 at 03:30 [facility]isc[facility] This patient mcqueen... PRN PRN XX WOUND CARE; Start 06/23/19 at 03:30 Diagnostic Test (Pha) (Accu-Chek) 1 ea 02 XX ; Start 06/24/19 at 02:00 Insulin Aspart (Novolog Insulin Pen) NOVOLOG *MODERATE* ALGORI... Q6 SC Last administered on 06/26/19at 12:17; Admin Dose 2 UNIT; Start 06/23/19 at 06:00 Miscellaneous Information 1 ea NOTE XX ; Start 06/23/19 at 04:00 Glucose (Glutose) 15 gm Q15M PRN PO DECREASED GLUCOSE; Start 06/23/19 at 04:00 Glucose (Glutose) 22.5 gm Q15M PRN PO DECREASED GLUCOSE; Start 06/23/19 at 04:00 Dextrose (D50w Syringe) 25 ml Q15M PRN IV DECREASED GLUCOSE; Start 06/23/19 at 04:00 Dextrose (D50w Syringe) 50 ml Q15M PRN IV DECREASED GLUCOSE; Start 06/23/19 at 04:00 Glucagon (Glucagen) 1 mg Q15M PRN IM DECREASED GLUCOSE; Start 06/23/19 at 04:00 Glucose (Glutose) 15 gm Q15M PRN BUCCAL DECREASED GLUCOSE; Start 06/23/19 at 04:00 Magnesium Hydroxide (Milk Of Mag) 30 ml DAILY PRN PO CONSTIPATION; Start 06/23/19 at 04:00 Levetiracetam 100 ml @ 400 mls/hr Q12 IVPB Last administered on 06/28/19 08:46; Admin Dose 400 MLS/HR; Start 06/23/19 at 09:00 Albuterol (Ventolin Hfa) 4 puff Q4H RESP THERAPY PRN INH SHORTNESS OF BREATH; Start 06/23/19 at 06:00 Liothyronine Sodium (Cytomel) 5 mcg DAILY PEG Last administered on 06/28/19at 08: 46; Admin Dose 5 MCG; Start 06/24/19 at 09:00 Carvedilol (Coreg) 12.5 mg BID GTB Last administered on 06/27/19at 22:06; Admin Dose 12.5 MG; Start 06/23/19 at 21:00 Hydralazine HCl (Apresoline) 25 mg TID PO Last administered on 06/28/19at 08:49; Admin Dose 25 MG; Start 06/23/19 at 15:30 Hydralazine HCl (Apresoline) 10 mg Q4H PRN IV sbp >165; Start 06/23/19 at 15:30 Zinc Sulfate (Zinc Sulfate) 220 mg DAILY GTB Last administered on 06/28/19at 08:46; Admin Dose 220 MG; Start 06/26/19 at 14:00 Tobramycin 130 mg/ Sodium Chloride 103.25 ml @ 103.75 mls/hr Q36H IVPB ; Start 06/30/19 at 06:00 Levothyroxine Sodium (Synthroid) 175 mcg BEFORE BREAKFAST PEG ; Start 06/29/19 at 07:00 BLAIR MYERS NP Jun 28, 2019 11:17
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
[2019-06-28] MEDS ORDERED: DAPTOMYCIN IVPB SCH (12:00)
[2019-06-28] MEDS ORDERED: SOD CHLORIDE 0.9% IVPB SCH (12:00)
--- NOTE | 2019-06-28 12:37 | PN ---
DATE: 06/28/2019 SUBJECTIVE: The patient seen, appears to be comfortable. Noted wound care consult is seeing the pat juan manuel, and the patient's antibiotics were changed due to a possible diskitis. Will order an MRI of th e lumbar spine to rule out osteomyelitis. OBJECTIVE: VITAL SIGNS: Temperature 97.7, pulse 54, respirations 20, blood pressure 120/56, oxygen saturation 1 00% on 30% FiO2. GENERAL: In no acute distress. HEENT: Normocephalic, atraumatic. Pale. Temporal wasting. Mouth is open due to his locked jaw. CARDIOVASCULAR: S1, S2. LUNGS: Faint rhonchi at the bases. ABDOMEN: Soft, nontender. EXTREMITIES: No clubbing, cyanosis, or edema. LABORATORY DATA: White count 12.7, hemoglobin 9.9, hematocrit 30, platelet count is 225, neutrophils 67%, lymphs at 14%. Chemistry: Sodium 138, potassium 5.5, chloride 103, bicarb 29, BUN 45, creatin ine 1.76, glucose of 107. TSH is high at 42.7. His free T4 is low at 0.82. Stool for C. diff turne d out to be negative. MEDICATIONS: 1. Synthroid 175 mcg daily, dose increased. 2. Aztreonam as directed. 3. Daptomycin as directed. 4. Zinc sulfate 220 daily. 5. Cytomel 5 mcg daily. 6. Accu-Cheks as directed. 7. Lipitor 10 mg at bedtime. 8. Pepcid 10 mg at bedtime. 9. Coreg 12.5 b.i.d. 10. Hydralazine 25 daily. 11. Vitamin C 250 daily. 12. Aspirin 81 mg daily. 13. Peridex 15 mL b.i.d. 14. Colistin 75 b.i.d. inhalation. 14. Proscar 5 mg daily. 15. Folic acid 1 mg daily. 16. ____ daily. 17. Multivitamin 1 tablet daily. 18. Keppra 1000 IV q.12. 19. Cardizem 30 mg q.8. 20. Insulin as per sliding scale. 21. Albuterol as directed. 22. Hyperglycemia protocol as directed. 23. Milk of magnesia as directed. 24. Ativan. 25. Zofran as directed. ASSESSMENT AND PLAN: This is an 88-year-old male with history of diabetes mellitus, gastro esophageal reflux disease, atrial fibrillation, dysphagia, G-tube feeding, ventilatory dependent resp iratory failure, pleural effusion who has been treated recently for urinary tract infection and pneum onia. Unfortunately, had status epilepticus and brief transfer to [facility]. 1. Respiratory: Continue CPAP trials. Pulmonary is following. Has been treated for pneumonia. 2. Cardiovascular: Stable. Continue aspirin and statin. 3. Anemia, status post transfusion. Hemoglobin and hematocrit is now stable. No evidence of active bleeding. 4. Questionable diskitis. Continue above antibiotics. Will obtain an MRI. 5. Status post status epilepticus. Cause is unclear, but currently on Keppra. 6. Hypothyroidism, status post a bout of myxedema coma. Continue Cytomel and higher dose of Synthro id at 175. 7. Dysphagia. Continue G-tube feeding, tolerating it well. 8. Multiple wounds. I appreciate wound care consult. Continue vitamins. 9. Possible transfer to [facility] long-term acute care for ongoing medical managem ent. 10. Urinary retention. Continue Maharaj to gravity. 11. Benign prostatic hypertrophy, on Proscar. 12. The patient is on Pepcid for gastrointestinal prophylaxis. We will follow closely. Continue ag gressive suctioning and care. We will follow. Dictated By: GLORIA KAN/ADENIKE Conf#: [id number] DID#: [id number]
--- NOTE | 2019-06-28 13:41 | CONS ---
Assessment/Plan Assessment/Plan Problems: (1) Hypothyroidism (acquired) Status: Chronic Comment: Significantly hypothyroid. Worse now than when admitted as TSH has risen from 28.9 to 42.7. FT4 and T3 are both low. Likely absorption being hindered by tube feeding. Will increase LT4 from 150 to 175 mcg/d and increase T3 from 5 mcg/d to 5 mcg bid. Recheck TFT in 1 week. Will follow peripherally until then. Consultation Date/Type/Reason Admit Date/Time Jun 23, 2019 at 00:53 Initial Consult Date 06/23/19 Type of Consult Endocrinology Reason for Consultation Hypothyroidism Requesting Provider: GLORIA KWON MD Date/Time of Note DATE: 06/28/19 TIME: 13:37 24 HR Interval Summary Subjective hx not possible: pt non-verbal Exam/Review of Systems Exam Vitals VS - Last 72 Hours, by Label Date Temp Pulse Resp B/P (MAP) Pulse Ox O2 O2 Flow FiO2 Time Delivery Rate 06/28/19 75 157/70 13:02 (99) 06/28/19 97.4 77 20 182/74 99 11:54 (110) 06/28/19 97.7 54 20 120/56 100 08:06 (77) 06/28/19 97 28 100 30 04:50 06/28/19 98.2 74 19 98/57 (71) 96 Mechanical 04:28 Ventilator 06/28/19 91 26 100 30 02:49 06/28/19 71 29 99 30 00:50 06/28/19 98.4 71 19 133/76 97 Mechanical 00:02 (95) Ventilator 06/27/19 69 25 99 30 22:49 06/27/19 77 26 100 30 21:01 06/27/19 97.8 66 19 150/60 100 Mechanical 19:50 (90) Ventilator 06/27/19 66 25 99 30 19:02 06/27/19 68 24 100 30 17:20 06/27/19 68 26 100 30 15:20 06/27/19 75 16 168/68 CPAP 13:36 (101) 06/27/19 68 24 100 30 13:00 06/27/19 97.8 62 20 128/62 100 Trach 11:37 (84) Collar 06/27/19 68 24 100 30 11:21 06/27/19 68 26 100 30 09:00 06/27/19 68 22 100 30 07:20 06/27/19 98.8 63 20 132/63 100 Trach 07:05 (86) Collar 06/27/19 98.1 65 20 130/66 97 Mechanical 06:13 (87) Ventilator 06/27/19 65 22 100 30 04:51 06/27/19 68 28 98 30 02:54 06/27/19 70 31 99 30 00:56 06/27/19 97.8 63 19 121/60 96 Mechanical 00:15 (80) Ventilator 06/26/19 71 30 100 30 22:55 06/26/19 77 29 100 30 20:56 06/26/19 98.0 21 147/67 96 Mechanical 20:00 (93) Ventilator 06/26/19 72 28 100 30 18:55 06/26/19 76 26 100 30 17:25 06/26/19 75 28 100 30 15:53 06/26/19 97.6 78 20 149/66 97 Trach 15:51 (93) Collar 06/26/19 75 28 100 30 13:22 06/26/19 98.2 76 20 148/68 96 Trach 12:02 (94) Collar 06/26/19 76 27 100 30 11:00 06/26/19 75 27 100 30 09:00 06/26/19 97.8 80 20 167/75 97 Trach 07:53 (105) Collar 06/26/19 74 27 100 30 07:00 06/26/19 75 27 100 30 05:05 06/26/19 97.5 76 19 160/72 96 Mechanical 04:09 (101) Ventilator 06/26/19 74 28 100 30 02:50 06/26/19 78 30 99 30 00:55 06/26/19 98.2 78 18 165/70 92 Mechanical 00:00 (101) Ventilator 06/25/19 78 22 99 30 22:55 06/25/19 77 35 100 30 20:56 06/25/19 98.8 75 19 168/71 100 Mechanical 20:00 (103) Ventilator 06/25/19 88 29 100 30 18:56 06/25/19 78 28 100 30 17:18 06/25/19 98.0 74 31 125/78 98 Mechanical 15:14 (94) Ventilator 06/25/19 76 28 100 30 15:08 06/25/19 130/65 14:56 (86) Vital Signs Date Temp Pulse Resp B/P (MAP) Pulse Ox O2 O2 Flow FiO2 Time Delivery Rate 06/28/19 75 157/70 13:02 (99) 06/28/19 97.4 20 99 11:54 06/28/19 30 04:50 06/28/19 Mechanical 04:28 Ventilator Intake and Output 06/27/19 06/27/19 06/28/19 1515:00 23:00 07:00 IntakeIntake Total 100 ml 420 ml 650 ml BalanceBalance 100 ml 420 ml 650 ml Constitutional: alert, frail; No oriented Neck: other ((+) trach w/ trach mask) Respiratory: clear to auscultation, normal air movement Cardiovascular: regular rate and rhythm; No edema, No murmurs/extra sounds, No rub Gastrointestinal: soft, nl liver, spleen, non-tender, bowel sounds; No mass, No rebound or guarding Musculoskeletal: nl extremities to inspection Extremities: No cyanosis, No clubbing, No edema Neurological: BANKER MASON II-XII intact, nl strength, other (looks at examiner with purpose but uncertain if pt. understands what is being said to him); No nl speech Results Result Diagram: 06/28/1962706/28/19627 Results 24hrs Laboratory Tests Test 06/28/19 01:00 06/28/19 06:19 06/28/19 06:28 06/28/19 12:48 Bedside Glucose 113 114 115 White Blood Count 12.7 H Red Blood Count 3.32 #L Hemoglobin 9.9 #L Hematocrit 30.0 #L Mean Corpuscular Volume 90.4 Mean Corpuscular 29.8 Hemoglobin Mean Corpuscular 33.0 Hemoglobin Concent Red Cell Distribution 16.2 H Width Platelet Count 225 Mean Platelet Volume 11.7 H Immature Granulocytes % 0.600 H Neutrophils % 66.9 Lymphocytes % 13.9 L Monocytes % 13.7 H Eosinophils % 4.6 Basophils % 0.3 Nucleated Red Blood 0.0 Cells % Immature Granulocytes # 0.080 H Neutrophils # 8.5 H Lymphocytes # 1.8 Monocytes # 1.7 H Eosinophils # 0.6 H Basophils # 0.0 Nucleated Red Blood 0.0 Cells # Sodium Level 138 Potassium Level 5.5 H Chloride Level 103 Carbon Dioxide Level 29 Anion Gap 6 Blood Urea Nitrogen 45 H Creatinine 1.76 H Est Glomerular Filtrat Rate mL/min Glucose Level 107 Calcium Level 9.1 Phosphorus Level 4.3 Magnesium Level 2.2 Thyroid Stimulating 42.700 H Hormone (TSH) Free Thyroxine 0.82 L Free Triiodothyronine 2.19 L (T3) pg/mL Medications Medication Current Medications Acetaminophen (Tylenol Liquid) 650 mg Q4H PRN GTB MILD PAIN(1-3) OR TEMP>38C; Start 06/23/19 at 03:30 Ascorbic Acid (Vitamin C) 250 mg DAILY GTB Last administered on 06/28/19 08:46; Admin Dose 250 MG; Start 06/23/19 at 09:00 Aspirin (Aspirin) 81 mg DAILY GTB Last administered on 06/28/19 08:46; Admin Dose 81 MG; Start 06/23/19 at 09:00 Atorvastatin Calcium (Lipitor) 10 mg QHS GTB Last administered on 06/27/19 22:02; Admin Dose 10 MG; Start 06/23/19 at 21:00 Bisacodyl (Dulcolax) 10 mg DAILY PRN PO CONSTIPATION; Start 06/23/19 at 03:30; Status Hold Chlorhexidine Gluconate (Peridex) 15 ml BID MM Last administered on 06/28/19 08:45; Admin Dose 15 ML; Start 06/23/19 at 09:00 Colistimethate Sodium (Colistin Inhal) 75 mg BID INH Last administered on 06/28/19 08:08; Admin Dose 75 MG; Start 06/23/19 at 09:00 Diltiazem HCl (Cardizem) 30 mg Q8 GTB Last administered on 06/28/19 13:03; Admin Dose 30 MG; Start 06/23/19 at 06:00 Famotidine (Pepcid) 20 mg QHS GTB Last administered on 06/27/19 22:06; Admin Dose 20 MG; Start 06/23/19 at 21:00 Finasteride (Proscar) 5 mg DAILY GTB Last administered on 06/28/19 08:46; Admin Dose 5 MG; Start 06/23/19 at 09:00 Folic Acid (Folic Acid) 1 mg DAILY GTB Last administered on 06/28/19 08:46; Admin Dose 1 MG; Start 06/23/19 at 09:00 Loratadine (Claritin) 10 mg DAILY GTB Last administered on 06/28/19 08:45; Admin Dose 10 MG; Start 06/23/19 at 09:00 Lorazepam (Ativan) 0.5 mg Q4H PRN PO AGITATION/ANXIETY Last administered on 06/26/19at 05:50; Admin Dose 0.5 MG; Start 06/23/19 at 03:30 Multivitamins Therapeutic (Theragran) 1 tab DAILY PO Last administered on 06/28/19at 08:45; Admin Dose 1 TAB; Start 06/23/19 at 09:00 Lorazepam (Ativan) 2 mg Q3H PRN IV SEIZURES Last administered on 06/25/19 04:42; Admin Dose 2 MG; Start 06/23/19 at 03:30 Ondansetron HCl (Zofran Inj) 4 mg Q6H PRN IV NAUSEA AND/OR VOMITING; Start 06/23/19 at 03:30 Miscellaneous Information (Pending [facility] Order For Wound Care) This patient mcqueen... PRN PRN XX WOUND CARE; Start 06/23/19 at 03:30 Diagnostic Test (Pha) (Accu-Chek) 1 ea 02 XX ; Start 06/24/19 at 02:00 Insulin Aspart (Novolog Insulin Pen) NOVOLOG *MODERATE* ALGORI... Q6 SC Last administered on 06/26/19at 12:17; Admin Dose 2 UNIT; Start 06/23/19 at 06:00 Miscellaneous Information 1 ea NOTE XX ; Start 06/23/19 at 04:00 Glucose (Glutose) 15 gm Q15M PRN PO DECREASED GLUCOSE; Start 06/23/19 at 04:00 Glucose (Glutose) 22.5 gm Q15M PRN PO DECREASED GLUCOSE; Start 06/23/19 at 04:00 Dextrose (D50w Syringe) 25 ml Q15M PRN IV DECREASED GLUCOSE; Start 06/23/19 at 04:00 Dextrose (D50w Syringe) 50 ml Q15M PRN IV DECREASED GLUCOSE; Start 06/23/19 at 04:00 Glucagon (Glucagen) 1 mg Q15M PRN IM DECREASED GLUCOSE; Start 06/23/19 at 04:00 Glucose (Glutose) 15 gm Q15M PRN BUCCAL DECREASED GLUCOSE; Start 06/23/19 at 04:00 Magnesium Hydroxide (Milk Of Mag) 30 ml DAILY PRN PO CONSTIPATION; Start 06/23/19 at 04:00 Levetiracetam 100 ml @ 400 mls/hr Q12 IVPB Last administered on 06/28/19at 08:46; Admin Dose 400 MLS/HR; Start 06/23/19 at 09:00 Albuterol (Ventolin Hfa) 4 puff Q4H RESP THERAPY PRN INH SHORTNESS OF BREATH; Start 06/23/19 at 06:00 Carvedilol (Coreg) 12.5 mg BID GTB Last administered on 06/27/19 22:06; Admin Dose 12.5 MG; Start 06/23/19 at 21:00 Hydralazine HCl (Apresoline) 25 mg TID PO Last administered on 06/28/19at 13:03; Admin Dose 25 MG; Start 06/23/19 at 15:30 Hydralazine HCl (Apresoline) 10 mg Q4H PRN IV sbp >165; Start 06/23/19 at 15:30 Zinc Sulfate (Zinc Sulfate) 220 mg DAILY GTB Last administered on 06/28/19at 08:46; Admin Dose 220 MG; Start 06/26/19 at 14:00 Levothyroxine Sodium (Synthroid) 175 mcg BEFORE BREAKFAST PEG ; Start 06/29/19 at 07:00 Daptomycin 430 mg/ Sodium Chloride 100 ml @ 200 mls/hr Q48H IVPB Last administered on 06/28/19at 12:55; Admin Dose 200 MLS/HR; Start 06/28/19 at 12:00 Aztreonam 2 gm/ Sodium Chloride 100 ml @ 100 mls/hr Q12 IVPB ; Start 06/28/19 at 21:00 Liothyronine Sodium (Cytomel) 5 mcg BID PEG ; Start 06/28/19 at 21:00; Status VIKAS CALVERT MD Jun 28, 2019 13:41
--- NOTE | 2019-06-28 17:14 | CONS ---
Consult Date/Type/Reason Admit Date/Time Jun 23, 2019 at 00:53 Initial Consult Date 06/24/19 Type of Consultation: cv Reason for Consultation Cardiology follow-up progress note Subjective: Case discussed with staff. Telemetry was reviewed. Patient has remained sinus rhythm. no more AFIB . Patient is a status post tracheostomy still on the ventilator. He does not verbalize to me but there is no report of any chest pain or pressure Objective: General: Elderly cachectic looking gentleman status post tracheostomy on the ventilator HEENT: NC/AT. Eyes are closed NECK: This post tracheostomy. no stridor. CV: Cardiac systolic murmur; no gallop or rubs. PULM: no wheezing . Mild rhonchi. GI: SOFT, NT, ND, post tube feeding Extremity: trace B/L LE edema. no clubbing. neuro: Opens his eyes to verbal stimuli Psych: calm rectal: deferred Requesting Provider: GLORIA KWON MD Date/Time of Note DATE: 06/28/19 TIME: 17:11 Objective Vitals Vital Signs Date Temp Pulse Resp B/P (MAP) Pulse Ox O2 O2 Flow FiO2 Time Delivery Rate 06/28/19 98.9 60 20 139/59 100 15:42 (85) 06/28/19 6.0 40 12:15 06/28/19 Mechanical 04:28 Ventilator Intake and Output 06/27/19 06/27/19 06/28/19 1414:59 22:59 06:59 IntakeIntake Total 100 ml 270 ml 800 ml BalanceBalance 100 ml 270 ml 800 ml Results/Medications Result Diagram: 06/28/19 0628 06/28/19 0628 Results 24 hrs Laboratory Tests Test 06/28/19 01:00 06/28/19 06:19 06/28/19 06:28 06/28/19 12:48 Bedside Glucose 113 114 115 White Blood Count 12.7 H Red Blood Count 3.32 #L Hemoglobin 9.9 #L Hematocrit 30.0 #L Mean Corpuscular Volume 90.4 Mean Corpuscular 29.8 Hemoglobin Mean Corpuscular 33.0 Hemoglobin Concent Red Cell Distribution 16.2 H Width Platelet Count 225 Mean Platelet Volume 11.7 H Immature Granulocytes % 0.600 H Neutrophils % 66.9 Lymphocytes % 13.9 L Monocytes % 13.7 H Eosinophils % 4.6 Basophils % 0.3 Nucleated Red Blood 0.0 Cells % Immature Granulocytes # 0.080 H Neutrophils # 8.5 H Lymphocytes # 1.8 Monocytes # 1.7 H Eosinophils # 0.6 H Basophils # 0.0 Nucleated Red Blood 0.0 Cells # Sodium Level 138 Potassium Level 5.5 H Chloride Level 103 Carbon Dioxide Level 29 Anion Gap 6 Blood Urea Nitrogen 45 H Creatinine 1.76 H Est Glomerular Filtrat Rate mL/min Glucose Level 107 Calcium Level 9.1 Phosphorus Level 4.3 Magnesium Level 2.2 Thyroid Stimulating 42.700 H Hormone (TSH) Free Thyroxine 0.82 L Free Triiodothyronine 2.19 L (T3) pg/mL Home Meds Reported Medications Levetiracetam* (Keppra*) 500 Mg/5 Ml Solution, 1000 MG IVPB BID, BOTTLE 06/23/19 Magnesium Hydroxide (Milk of Magnesia) 2,400 Mg/10 Ml Oral.susp, 400 MG GTB PRN for CONSTIPATION 06/23/19 Colistimethate Sodium (Coly-Mycin M) 150 Mg Soln, 75 MG IJ 06/23/19 Diltiazem Hcl (Cardizem) 60 Mg Tablet, 30 MG PO Q8, #120 TAB 06/23/19 Chlorhexidine Gluconate (Peridex) 473 Ml Mouthwash, 15 ML MM BID, BOTTLE 06/23/19 Acetaminophen* (Acetaminophen* Susp) 325 Mg/10.15 Ml Solution, 650 MG GTB Q4H PRN for PAIN OR TEMP ABOVE 38C, ML 06/23/19 Ondansetron Hcl* (Zofran*) 4 Mg Tab, 4 MG IVP Q6H PRN for NAUSEA AND OR VOMITING, TAB 06/23/19 Multivitamins* (Theragran*) 1 Tab Tab, 1 TAB PO DAILY, TAB 06/23/19 Lorazepam* (Ativan*) 2 Mg Tablet, 2 MG IVP Q3H PRN for SEIZURES, #60 TAB 06/23/19 Lorazepam* (Lorazepam*) 0.5 Mg Tablet, 0.5 MG PO Q4 PRN for AGITATION/ANXIETY, TAB 06/23/19 Loratadine* (Loratadine*) 10 Mg Tablet, 10 MG GTB DAILY, #30 TAB 06/23/19 Liothyronine Sodium* (Cytomel*) 5 Mcg Tablet, 5 MCG PO DAILY, TAB 06/23/19 Levothyroxine Sodium* (Levothyroxine Sodium*) 150 Mcg Tablet, 150 MCG PO BEFORE BREAKFAST, #30 TAB 06/23/19 Folic Acid* (Folic Acid*) 1 Mg Tablet, 1 MG GTB DAILY, TAB 06/23/19 Finasteride* (Finasteride*) 5 Mg Tablet, 5 MG GTB DAILY, TAB 06/23/19 Famotidine* (Famotidine*) 20 Mg Tablet, 20 MG GTB QHS, #30 TAB 06/23/19 Carvedilol* (Carvedilol*) 6.25 Mg Tablet, 6.25 MG G-TUBE BID, #60 TAB 06/23/19 Bisacodyl* (Bisacodyl*) 5 Mg Tablet.dr, 10 MG GA DAILY PRN for CONSTIPATION, TAB 06/23/19 Atorvastatin (Atorvastatin) 10 Mg Tablet, 10 MG GTB QHS, #30 TAB 06/23/19 Aspirin* (Aspirin* Chew) 81 Mg Tab.chew, 81 MG GTB DAILY, TAB.CHEW 06/23/19 Ascorbic Acid (Vitamin C) 250 Mg Tab, 250 MG G-TUBE DAILY, TAB 06/23/19 Albuterol Sulfate (Proair Respiclick) 90 Mcg Aer.pow.ba, 4 PUFF INHALATION Q4 PRN for SHORTNESS OF BREATH, #1 BOTTLE 06/23/19 Discontinued Reported Medications Levetiracetam* (Keppra* IV) 500 Mg/5 Ml Soln, 10 MG IVPB Q12, EA DILUTE IN 100 ML NS 06/23/19 Medications Current Medications Acetaminophen (Tylenol Liquid) 650 mg Q4H PRN GTB MILD PAIN(1-3) OR TEMP>38C; Start 06/23/19 at 03:30 Ascorbic Acid (Vitamin C) 250 mg DAILY GTB Last administered on 06/28/19at 08:46; Admin Dose 250 MG; Start 06/23/19 at 09:00 Aspirin (Aspirin) 81 mg DAILY GTB Last administered on 06/28/19at 08:46; Admin Dose 81 MG; Start 06/23/19 at 09:00 Atorvastatin Calcium (Lipitor) 10 mg QHS GTB Last administered on 06/27/19at 22:02; Admin Dose 10 MG; Start 06/23/19 at 21:00 Bisacodyl (Dulcolax) 10 mg DAILY PRN PO CONSTIPATION; Start 06/23/19 at 03:30; Status Hold Chlorhexidine Gluconate (Peridex) 15 ml BID MM Last administered on 06/28/19 08:45; Admin Dose 15 ML; Start 06/23/19 at 09:00 Colistimethate Sodium (Colistin Inhal) 75 mg BID INH Last administered on 06/28/19 08:08; Admin Dose 75 MG; Start 06/23/19 at 09:00 Diltiazem HCl (Cardizem) 30 mg Q8 GTB Last administered on 06/28/19 13:03; Admin Dose 30 MG; Start 06/23/19 at 06:00 Famotidine (Pepcid) 20 mg QHS GTB Last administered on 06/27/19 22:06; Admin Dose 20 MG; Start 06/23/19 at 21:00 Finasteride (Proscar) 5 mg DAILY GTB Last administered on 06/28/19 08:46; Admin Dose 5 MG; Start 06/23/19 at 09:00 Folic Acid (Folic Acid) 1 mg DAILY GTB Last administered on 06/28/19 08:46; Admin Dose 1 MG; Start 06/23/19 at 09:00 Loratadine (Claritin) 10 mg DAILY GTB Last administered on 06/28/19 08:45; Admin Dose 10 MG; Start 06/23/19 at 09:00 Lorazepam (Ativan) 0.5 mg Q4H PRN PO AGITATION/ANXIETY Last administered on 06/26/19 05:50; Admin Dose 0.5 MG; Start 06/23/19 at 03:30 Multivitamins Therapeutic (Theragran) 1 tab DAILY PO Last administered on 06/28/19 08:45; Admin Dose 1 TAB; Start 06/23/19 at 09:00 Lorazepam (Ativan) 2 mg Q3H PRN IV SEIZURES Last administered on 06/25/19 04:42; Admin Dose 2 MG; Start 06/23/19 at 03:30 Ondansetron HCl (Zofran Inj) 4 mg Q6H PRN IV NAUSEA AND/OR VOMITING; Start 06/23/19 at 03:30 Miscellaneous Information (Pending [facility] Order For Wound Care) This patient mcqueen... PRN PRN XX WOUND CARE; Start 06/23/19 at 03:30 Diagnostic Test (Pha) (Accu-Chek) 1 ea 02 XX ; Start 06/24/19 at 02:00 Insulin Aspart (Novolog Insulin Pen) NOVOLOG *MODERATE* ALGORI... Q6 SC Last administered on 06/26/19at 12:17; Admin Dose 2 UNIT; Start 06/23/19 at 06:00 Miscellaneous Information 1 ea NOTE XX ; Start 06/23/19 at 04:00 Glucose (Glutose) 15 gm Q15M PRN PO DECREASED GLUCOSE; Start 06/23/19 at 04:00 Glucose (Glutose) 22.5 gm Q15M PRN PO DECREASED GLUCOSE; Start 06/23/19 at 04:00 Dextrose (D50w Syringe) 25 ml Q15M PRN IV DECREASED GLUCOSE; Start 06/23/19 at 04:00 Dextrose (D50w Syringe) 50 ml Q15M PRN IV DECREASED GLUCOSE; Start 06/23/19 at 04:00 Glucagon (Glucagen) 1 mg Q15M PRN IM DECREASED GLUCOSE; Start 06/23/19 at 04:00 Glucose (Glutose) 15 gm Q15M PRN BUCCAL DECREASED GLUCOSE; Start 06/23/19 at 04:00 Magnesium Hydroxide (Milk Of Mag) 30 ml DAILY PRN PO CONSTIPATION; Start 06/23/19 at 04:00 Levetiracetam 100 ml @ 400 mls/hr Q12 IVPB Last administered on 06/28/19at 08:46; Admin Dose 400 MLS/HR; Start 06/23/19 at 09:00 Albuterol (Ventolin Hfa) 4 puff Q4H RESP THERAPY PRN INH SHORTNESS OF BREATH; Start 06/23/19 at 06:00 Carvedilol (Coreg) 12.5 mg BID GTB Last administered on 06/27/19at 22:06; Admin Dose 12.5 MG; Start 06/23/19 at 21:00 Hydralazine HCl (Apresoline) 25 mg TID PO Last administered on 06/28/19at 13:03; Admin Dose 25 MG; Start 06/23/19 at 15:30 Hydralazine HCl (Apresoline) 10 mg Q4H PRN IV sbp >165; Start 06/23/19 at 15:30 Zinc Sulfate (Zinc Sulfate) 220 mg DAILY GTB Last administered on 06/28/19at 08:46; Admin Dose 220 MG; Start 06/26/19 at 14:00 Levothyroxine Sodium (Synthroid) 175 mcg BEFORE BREAKFAST PEG ; Start 06/29/19 at 07:00 Daptomycin 430 mg/ Sodium Chloride 100 ml @ 200 mls/hr Q48H IVPB Last administered on 06/28/19at 12:55; Admin Dose 200 MLS/HR; Start 06/28/19 at 12:00 Aztreonam 2 gm/ Sodium Chloride 100 ml @ 100 mls/hr Q12 IVPB ; Start 06/28/19 at 21:00 Liothyronine Sodium (Cytomel) 5 mcg BID PEG ; Start 06/28/19 at 21:00 Assessment/Plan Hospital Course (Demo Recall) Seizure with status epilepticus: resolved now. 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 Vent support will be continued Transfusions as needed off amiodarone due to his severe thyroid d/o Continue with Coreg with holding parameters Continue with aspirin. We have held off on full anticoagulation due to concern about his severe anemia and possibly bleeding. check the stool guaiac Thank you for his referral. We will continue to follow along with you MARY JEAN BAPTISTE MD [facility] MARY JEAN BAPTISTE MD Jun 28, 2019 17:14
[2019-06-28] MEDS ORDERED: METOPROLOL 5 MG INJ IV ONE (17:30)
[2019-06-28] MEDS ORDERED: DIGOXIN 500 MCG INJ IV ONE (17:30)
[2019-06-28] MEDS ORDERED: DILTIAZEM-D5W 125MG/125ML DRIP 125 ML IV SCH (18:00)
[2019-06-28] MEDS ORDERED: AMIODARONE 900 MG in DEXTROSE 5% 482 ML IV SCH (18:00)
[2019-06-28] MEDS ORDERED: AMIODARONE 150MG/D5W BOLUS 100 ML IV ONE (18:00)
[2019-06-28] MEDS: ATORVASTATIN 10 MG TAB GTB SCH (21:48)
[2019-06-28] MEDS: AZTREONAM 2 GM in SOD CHLORIDE 0.9% 100 ML IVPB SCH (22:17)
[2019-06-29] VITALS (15 sets, daily range): BP systolic 92–131; BP diastolic 43–82; PULSE 58–105; RESP 15–30
[2019-06-29] MEDS: ACCU-CHEK XX SCH (02:00)
[2019-06-29] MEDS: DILTIAZEM 60 MG TAB GTB SCH ×2 (06:00→14:00)
[2019-06-29] MEDS: INSULIN ASPART [NOVOLOG] 3 ML PEN SC SCH ×3 (06:00→18:00)
[2019-06-29] MEDS ORDERED: LEVOTHYROXINE 175 MCG TAB PEG SCH (07:00)
--- NOTE | 2019-06-29 08:32 | CONS ---
Consult Date/Type/Reason Admit Date/Time Jun 23, 2019 at 00:53 Initial Consult Date 06/24/19 Type of Consultation: cv Requesting Provider: GLORIA KWON MD Date/Time of Note DATE: 06/29/19 TIME: 08:29 Subjective Cardiology follow-up progress note Subjective: Case discussed with staff. Telemetry was reviewed. Patient has converted to atrial fibrillation rapid ventricular response last night. He has converted back to sinus rhythm now. Patient is a status post tracheostomy still on the ventilator. He does not verbalize to me but there is no report of any chest pain or pressure Objective: General: Elderly cachectic looking gentleman status post tracheostomy on the ventilator HEENT: NC/AT. Eyes are closed NECK: This post tracheostomy. no stridor. CV: Regular rate and rhythm systolic murmur; no gallop or rubs. PULM: no wheezing . Mild rhonchi. GI: SOFT, NT, ND, post tube feeding Extremity: trace B/L LE edema. no clubbing. neuro: Opens his eyes to verbal stimuli Psych: calm rectal: deferred Objective Vitals Vital Signs Date Temp Pulse Resp B/P (MAP) Pulse Ox O2 O2 Flow FiO2 Time Delivery Rate 06/29/19 98.2 59 18 104/51 100 Trach 08:23 (68) Collar 06/29/19 50 08:20 06/28/19 6.0 12:15 Intake and Output 06/28/19 06/28/19 06/29/19 1515:00 23:00 07:00 IntakeIntake Total 140 ml 800 ml OutputOutput Total 1 ml 3 ml BalanceBalance -1 ml 137 ml 800 ml Results/Medications Result Diagram: 06/29/19 0612 06/29/19 0612 Results 24 hrs Laboratory Tests Test 06/28/19 12:48 06/28/19 18:12 06/28/19 23:24 06/29/19 06:11 Bedside Glucose 115 151 101 123 Test 06/29/19 06:12 White Blood Count 11.8 H Red Blood Count 3.13 L Hemoglobin 9.3 L Hematocrit 29.1 L Mean Corpuscular Volume 93.0 Mean Corpuscular 29.7 Hemoglobin Mean Corpuscular 32.0 Hemoglobin Concent Red Cell Distribution 16.2 H Width Platelet Count 234 Mean Platelet Volume 12.1 H Immature Granulocytes % 0.600 H Neutrophils % 65.5 Lymphocytes % 15.0 Monocytes % 14.9 H Eosinophils % 3.7 Basophils % 0.3 Nucleated Red Blood 0.0 Cells % Immature Granulocytes # 0.070 H Neutrophils # 7.7 H Lymphocytes # 1.8 Monocytes # 1.8 H Eosinophils # 0.4 Basophils # 0.0 Nucleated Red Blood 0.0 Cells # Sodium Level 140 Potassium Level 5.1 Chloride Level 106 Carbon Dioxide Level 25 Anion Gap 9 Blood Urea Nitrogen 57 H Creatinine 1.87 H Est Glomerular Filtrat Rate mL/min Glucose Level 110 Calcium Level 8.5 Phosphorus Level 4.7 Magnesium Level 2.1 Total Bilirubin 0.2 Direct Bilirubin 0.00 Indirect Bilirubin 0.2 Aspartate Amino 28 Transf (AST/SGOT) Alanine 19 Aminotransferase (ALT/SG PT) Alkaline Phosphatase 91 Creatine Kinase < 20 L Total Protein 7.2 Albumin 3.1 L Globulin 4.10 H Albumin/Globulin Ratio 0.75 Home Meds Reported Medications Levetiracetam* (Keppra*) 500 Mg/5 Ml Solution, 1000 MG IVPB BID, BOTTLE 06/23/19 Magnesium Hydroxide (Milk of Magnesia) 2,400 Mg/10 Ml Oral.susp, 400 MG GTB PRN for CONSTIPATION 06/23/19 Colistimethate Sodium (Coly-Mycin M) 150 Mg Soln, 75 MG IJ 06/23/19 Diltiazem Hcl (Cardizem) 60 Mg Tablet, 30 MG PO Q8, #120 TAB 06/23/19 Chlorhexidine Gluconate (Peridex) 473 Ml Mouthwash, 15 ML MM BID, BOTTLE 06/23/19 Acetaminophen* (Acetaminophen* Susp) 325 Mg/10.15 Ml Solution, 650 MG GTB Q4H PRN for PAIN OR TEMP ABOVE 38C, ML 06/23/19 Ondansetron Hcl* (Zofran*) 4 Mg Tab, 4 MG IVP Q6H PRN for NAUSEA AND OR VOMITING, TAB 06/23/19 Multivitamins* (Theragran*) 1 Tab Tab, 1 TAB PO DAILY, TAB 06/23/19 Lorazepam* (Ativan*) 2 Mg Tablet, 2 MG IVP Q3H PRN for SEIZURES, #60 TAB 06/23/19 Lorazepam* (Lorazepam*) 0.5 Mg Tablet, 0.5 MG PO Q4 PRN for AGITATION/ANXIETY, TAB 06/23/19 Loratadine* (Loratadine*) 10 Mg Tablet, 10 MG GTB DAILY, #30 TAB 06/23/19 Liothyronine Sodium* (Cytomel*) 5 Mcg Tablet, 5 MCG PO DAILY, TAB 06/23/19 Levothyroxine Sodium* (Levothyroxine Sodium*) 150 Mcg Tablet, 150 MCG PO BEFORE BREAKFAST, #30 TAB 06/23/19 Folic Acid* (Folic Acid*) 1 Mg Tablet, 1 MG GTB DAILY, TAB 06/23/19 Finasteride* (Finasteride*) 5 Mg Tablet, 5 MG GTB DAILY, TAB 06/23/19 Famotidine* (Famotidine*) 20 Mg Tablet, 20 MG GTB QHS, #30 TAB 06/23/19 Carvedilol* (Carvedilol*) 6.25 Mg Tablet, 6.25 MG G-TUBE BID, #60 TAB 06/23/19 Bisacodyl* (Bisacodyl*) 5 Mg Tablet.dr, 10 MG [place] DAILY PRN for CONSTIPATION, TAB 06/23/19 Atorvastatin (Atorvastatin) 10 Mg Tablet, 10 MG GTB QHS, #30 TAB 06/23/19 Aspirin* (Aspirin* Chew) 81 Mg Tab.chew, 81 MG GTB DAILY, TAB.CHEW 06/23/19 Ascorbic Acid (Vitamin C) 250 Mg Tab, 250 MG G-TUBE DAILY, TAB 06/23/19 Albuterol Sulfate (Proair Respiclick) 90 Mcg Aer.pow.ba, 4 PUFF INHALATION Q4 PRN for SHORTNESS OF BREATH, #1 BOTTLE 06/23/19 Discontinued Reported Medications Levetiracetam* (Keppra* IV) 500 Mg/5 Ml Soln, 10 MG IVPB Q12, EA DILUTE IN 100 ML NS 06/23/19 Medications Current Medications Acetaminophen (Tylenol Liquid) 650 mg Q4H PRN GTB MILD PAIN(1-3) OR TEMP>38C; Start 06/23/19 at 03:30 Ascorbic Acid (Vitamin C) 250 mg DAILY GTB Last administered on 06/28/19at 08:46; Admin Dose 250 MG; Start 06/23/19 at 09:00 Aspirin (Aspirin) 81 mg DAILY GTB Last administered on 06/28/19 08:46; Admin Dose 81 MG; Start 06/23/19 at 09:00 Atorvastatin Calcium (Lipitor) 10 mg QHS GTB Last administered on 06/28/19 21:48; Admin Dose 10 MG; Start 06/23/19 at 21:00 Bisacodyl (Dulcolax) 10 mg DAILY PRN PO CONSTIPATION; Start 06/23/19 at 03:30; Status Hold Chlorhexidine Gluconate (Peridex) 15 ml BID MM Last administered on 06/28/19 21:48; Admin Dose 15 ML; Start 06/23/19 at 09:00 Colistimethate Sodium (Colistin Inhal) 75 mg BID INH Last administered on 06/28/19 23:42; Admin Dose 75 MG; Start 06/23/19 at 09:00 Diltiazem HCl (Cardizem) 30 mg Q8 GTB Last administered on 06/28/19 22:24; Admin Dose 30 MG; Start 06/23/19 at 06:00 Famotidine (Pepcid) 20 mg QHS GTB Last administered on 06/27/19 22:06; Admin Dose 20 MG; Start 06/23/19 at 21:00 Finasteride (Proscar) 5 mg DAILY GTB Last administered on 06/28/19 08:46; Admin Dose 5 MG; Start 06/23/19 at 09:00 Folic Acid (Folic Acid) 1 mg DAILY GTB Last administered on 06/28/19 08:46; Admin Dose 1 MG; Start 06/23/19 at 09:00 Loratadine (Claritin) 10 mg DAILY GTB Last administered on 06/28/19 08:45; Admin Dose 10 MG; Start 06/23/19 at 09:00 Lorazepam (Ativan) 0.5 mg Q4H PRN PO AGITATION/ANXIETY Last administered on 06/26/19 05:50; Admin Dose 0.5 MG; Start 06/23/19 at 03:30 Multivitamins Therapeutic (Theragran) 1 tab DAILY PO Last administered on 06/28/19 08:45; Admin Dose 1 TAB; Start 06/23/19 at 09:00 Lorazepam (Ativan) 2 mg Q3H PRN IV SEIZURES Last administered on 8/2/19at 04:42; Admin Dose 2 MG; Start 06/23/19 at 03:30 Ondansetron HCl (Zofran Inj) 4 mg Q6H PRN IV NAUSEA AND/OR VOMITING; Start 06/23/19 at 03:30 Miscellaneous Information (Pending Santyl Order For Wound Care) This patient mcqueen... PRN PRN XX WOUND CARE; Start 06/23/19 at 03:30 Diagnostic Test (Pha) (Accu-Chek) 1 ea 02 XX ; Start 06/24/19 at 02:00 Insulin Aspart (Novolog Insulin Pen) NOVOLOG *MODERATE* ALGORI... Q6 SC Last administered on 06/28/19at 18:20; Admin Dose 2 UNIT; Start 06/23/19 at 06:00 Miscellaneous Information 1 ea NOTE XX ; Start 06/23/19 at 04:00 Glucose (Glutose) 15 gm Q15M PRN PO DECREASED GLUCOSE; Start 06/23/19 at 04:00 Glucose (Glutose) 22.5 gm Q15M PRN PO DECREASED GLUCOSE; Start 06/23/19 at 04:00 Dextrose (D50w Syringe) 25 ml Q15M PRN IV DECREASED GLUCOSE; Start 06/23/19 at 04:00 Dextrose (D50w Syringe) 50 ml Q15M PRN IV DECREASED GLUCOSE; Start 06/23/19 at 04:00 Glucagon (Glucagen) 1 mg Q15M PRN IM DECREASED GLUCOSE; Start 06/23/19 at 04:00 Glucose (Glutose) 15 gm Q15M PRN BUCCAL DECREASED GLUCOSE; Start 06/23/19 at 04:00 Magnesium Hydroxide (Milk Of Mag) 30 ml DAILY PRN PO CONSTIPATION; Start 06/23/19 at 04:00 Levetiracetam 100 ml @ 400 mls/hr Q12 IVPB Last administered on 06/28/19at 21:48; Admin Dose 400 MLS/HR; Start 06/23/19 at 09:00 Albuterol (Ventolin Hfa) 4 puff Q4H RESP THERAPY PRN INH SHORTNESS OF BREATH; Start 06/23/19 at 06:00 Carvedilol (Coreg) 12.5 mg BID GTB Last administered on 06/27/19at 22:06; Admin Dose 12.5 MG; Start 06/23/19 at 21:00 Hydralazine HCl (Apresoline) 25 mg TID PO Last administered on 06/28/19 13:03; Admin Dose 25 MG; Start 06/23/19 at 15:30 Hydralazine HCl (Apresoline) 10 mg Q4H PRN IV sbp >165; Start 06/23/19 at 15:30 Zinc Sulfate (Zinc Sulfate) 220 mg DAILY GTB Last administered on 06/28/19 08:46; Admin Dose 220 MG; Start 06/26/19 at 14:00 Levothyroxine Sodium (Synthroid) 175 mcg BEFORE BREAKFAST PEG Last administered on 06/29/19 06:52; Admin Dose 175 MCG; Start 06/29/19 at 07:00 Daptomycin 430 mg/ Sodium Chloride 100 ml @ 200 mls/hr Q48H IVPB Last administered on 06/28/19 12:55; Admin Dose 200 MLS/HR; Start 06/28/19 at 12:00 Aztreonam 2 gm/ Sodium Chloride 100 ml @ 100 mls/hr Q12 IVPB Last administered on 06/28/19 22:17; Admin Dose 100 MLS/HR; Start 06/28/19 at 21:00 Liothyronine Sodium (Cytomel) 5 mcg BID PEG Last administered on 06/28/19 21:49; Admin Dose 5 MCG; Start 06/28/19 at 21:00 Diltiazem HCl 125 ml @ 5 mls/hr TITRATE IV ; Start 06/28/19 at 18:00 Assessment/Plan Hospital Course (Demo Recall) Seizure with status epilepticus: resolved now. Marked sinus bradycardia appears to be related to medication as well as mostly related to severe hypothyroidism: improved now Respiratory failure status post tracheostomy vent dependent Hypertension paroxysmal atrial fibrillation; currently back in NSR Anemia Encephalopathy HX of Multiple infections/ sepsis urinary tract infection and pneumonia History of diabetes Renal insufficiency COPD History of dysphagia and ileus dyslipidemia Severe thyroid disorder Recommendations: Neuro work-up and treatment as per internal medicine and neurology consultation Thyroid management as per internal medicine and endocrine consultation. Vent support will be continued Transfusions as needed off amiodarone due to his severe thyroid d/o Continue with Coreg with holding parameters Continue with aspirin. We have held off on full anticoagulation due to concern about his severe anemia and possibly bleeding. stool guaiac has been ordered. Results are still pending. We will consider switching to Eliquis if stool guaiac is negative Thank you for his referral. We will continue to follow along with you MARY JEAN BAPTISTE MD [facility] MARY JEAN BAPTISTE MD Jun 29, 2019 08:32
[2019-06-29] MEDS: AZTREONAM 2 GM in SOD CHLORIDE 0.9% 100 ML IVPB SCH (08:44)
[2019-06-29] MEDS: LEVETIRACETAM 1000 MG (PMX) 100 ML IVPB SCH ×2 (08:45→20:20)
[2019-06-29] MEDS: FINASTERIDE 5 MG TAB GTB SCH (08:45)
[2019-06-29] MEDS: CHLORHEXIDINE GLUCONATE 15 ML UD CUP MM SCH ×2 (08:45→20:18)
[2019-06-29] MEDS: FOLIC ACID 1 MG TAB GTB SCH (08:45)
[2019-06-29] MEDS: MULTIVITAMINS THERAPEUTIC TAB PO SCH (08:45)
[2019-06-29] MEDS: LIOTHYRONINE 5 MCG TAB PEG SCH ×2 (08:45→20:19)
[2019-06-29] MEDS: ZINC SULFATE 220 MG CAP GTB SCH (08:45)
[2019-06-29] MEDS: LORATADINE 10 MG TAB GTB SCH (08:45)
[2019-06-29] MEDS: ASPIRIN 81 MG TAB GTB SCH (08:45)
[2019-06-29] MEDS: ASCORBIC ACID 250 MG TAB GTB SCH (08:45)
[2019-06-29] MEDS: COLISTIMETHATE (25 MG/ML INHAL SYG) INH SCH (09:30)
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
--- NOTE | 2019-06-29 12:56 | CONS ---
Assessment/Plan Assessment/Plan Hospital Course (Demo Recall) No acute changes overnight, looks comfortable, no fevers Stool for C. difficile came back negative Indwelling: Trach PEG right upper extremity PICC line Antimicrobials: Daptomycin, Azactam ALL: PCN, Cefepime Physical examination: This is a chronically ill appearing elderly man who is in no distress head atraumatic normocephalic neck is supple chest rise symmetrical breath sounds diminished bases heart S1-S2 abdomen soft bowel sounds present extremities without cyanosis Assessment: 1. Seizure disorder 2. 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 Resolving pneumonia 4. Encephalopathy 5. Diabetes 6. Atrial fibrillation Plan: Clinically unchanged, continue abx for spinal discitis/OM, pending MRI Consultation Date/Type/Reason Admit Date/Time Jun 23, 2019 at 00:53 Initial Consult Date 06/24/19 Type of Consult id Requesting Provider: GLORIA KWON MD Date/Time of Note DATE: 06/29/19 TIME: 12:55 Exam/Review of Systems Exam Vitals Vital Signs Date Temp Pulse Resp B/P (MAP) Pulse Ox O2 O2 Flow FiO2 Time Delivery Rate 06/29/19 98.2 61 18 92/43 (59) 99 Trach 12:35 Collar 06/29/19 30 11:38 06/28/19 6.0 12:15 Intake and Output 06/28/19 06/28/19 06/29/19 1515:00 23:00 07:00 IntakeIntake Total 140 ml 800 ml OutputOutput Total 1 ml 3 ml BalanceBalance -1 ml 137 ml 800 ml Results Result Diagram: 06/29/19 0612 06/29/19 0612 Results 24hrs Laboratory Tests Test 06/28/19 18:12 06/28/19 23:24 06/29/19 06:11 06/29/19 06:12 Bedside Glucose 151 101 123 White Blood Count 11.8 H Red Blood Count 3.13 L Hemoglobin 9.3 L Hematocrit 29.1 L Mean Corpuscular Volume 93.0 Mean Corpuscular 29.7 Hemoglobin Mean Corpuscular 32.0 Hemoglobin Concent Red Cell Distribution 16.2 H Width Platelet Count 234 Mean Platelet Volume 12.1 H Immature Granulocytes % 0.600 H Neutrophils % 65.5 Lymphocytes % 15.0 Monocytes % 14.9 H Eosinophils % 3.7 Basophils % 0.3 Nucleated Red Blood 0.0 Cells % Immature Granulocytes # 0.070 H Neutrophils # 7.7 H Lymphocytes # 1.8 Monocytes # 1.8 H Eosinophils # 0.4 Basophils # 0.0 Nucleated Red Blood 0.0 Cells # Sodium Level 140 Potassium Level 5.1 Chloride Level 106 Carbon Dioxide Level 25 Anion Gap 9 Blood Urea Nitrogen 57 H Creatinine 1.87 H Est Glomerular Filtrat Rate mL/min Glucose Level 110 Calcium Level 8.5 Phosphorus Level 4.7 Magnesium Level 2.1 Total Bilirubin 0.2 Direct Bilirubin 0.00 Indirect Bilirubin 0.2 Aspartate Amino 28 Transf (AST/SGOT) Alanine 19 Aminotransferase (ALT/SG PT) Alkaline Phosphatase 91 Creatine Kinase < 20 L Total Protein 7.2 Albumin 3.1 L Globulin 4.10 H Albumin/Globulin Ratio 0.75 Test 06/29/19 12:02 Bedside Glucose 119 Medications Medication Current Medications Acetaminophen (Tylenol Liquid) 650 mg Q4H PRN GTB MILD PAIN(1-3) OR TEMP>38C; Start 06/23/19 at 03:30 Ascorbic Acid (Vitamin C) 250 mg DAILY GTB Last administered on 06/29/19 08:45; Admin Dose 250 MG; Start 06/23/19 at 09:00 Aspirin (Aspirin) 81 mg DAILY GTB Last administered on 06/29/19 08:45; Admin Dose 81 MG; Start 06/23/19 at 09:00 Atorvastatin Calcium (Lipitor) 10 mg QHS GTB Last administered on 06/28/19 21:48; Admin Dose 10 MG; Start 06/23/19 at 21:00 Bisacodyl (Dulcolax) 10 mg DAILY PRN PO CONSTIPATION; Start 06/23/19 at 03:30; Status Hold Chlorhexidine Gluconate (Peridex) 15 ml BID MM Last administered on 06/29/19 08:45; Admin Dose 15 ML; Start 06/23/19 at 09:00 Colistimethate Sodium (Colistin Inhal) 75 mg BID INH Last administered on 06/28/19 23:42; Admin Dose 75 MG; Start 06/23/19 at 09:00 Diltiazem HCl (Cardizem) 30 mg Q8 GTB Last administered on 06/28/19 22:24; Admin Dose 30 MG; Start 06/23/19 at 06:00 Famotidine (Pepcid) 20 mg QHS GTB Last administered on 06/27/19 22:06; Admin Dose 20 MG; Start 06/23/19 at 21:00 Finasteride (Proscar) 5 mg DAILY GTB Last administered on 06/29/19 08:45; Admin Dose 5 MG; Start 06/23/19 at 09:00 Folic Acid (Folic Acid) 1 mg DAILY GTB Last administered on 06/29/19 08:45; Admin Dose 1 MG; Start 06/23/19 at 09:00 Loratadine (Claritin) 10 mg DAILY GTB Last administered on 06/29/19 08:45; Admin Dose 10 MG; Start 06/23/19 at 09:00 Lorazepam (Ativan) 0.5 mg Q4H PRN PO AGITATION/ANXIETY Last administered on 06/26/19 05:50; Admin Dose 0.5 MG; Start 06/23/19 at 03:30 Multivitamins Therapeutic (Theragran) 1 tab DAILY PO Last administered on 06/29/19 08:45; Admin Dose 1 TAB; Start 06/23/19 at 09:00 Lorazepam (Ativan) 2 mg Q3H PRN IV SEIZURES Last administered on 06/25/19 04:42; Admin Dose 2 MG; Start 06/23/19 at 03:30 Ondansetron HCl (Zofran Inj) 4 mg Q6H PRN IV NAUSEA AND/OR VOMITING; Start 06/23/19 at 03:30 Miscellaneous Information (Pending [facility] Order For Wound Care) This patient mcqueen... PRN PRN XX WOUND CARE; Start 06/23/19 at 03:30 Diagnostic Test (Pha) (Accu-Chek) 1 ea 02 XX ; Start 06/24/19 at 02:00 Insulin Aspart (Novolog Insulin Pen) NOVOLOG *MODERATE* ALGORI... Q6 SC Last administered on 06/28/19 18:20; Admin Dose 2 UNIT; Start 06/23/19 at 06:00 Miscellaneous Information 1 ea NOTE XX ; Start 06/23/19 at 04:00 Glucose (Glutose) 15 gm Q15M PRN PO DECREASED GLUCOSE; Start 06/23/19 at 04:00 Glucose (Glutose) 22.5 gm Q15M PRN PO DECREASED GLUCOSE; Start 06/23/19 at 04:00 Dextrose (D50w Syringe) 25 ml Q15M PRN IV DECREASED GLUCOSE; Start 06/23/19 at 04:00 Dextrose (D50w Syringe) 50 ml Q15M PRN IV DECREASED GLUCOSE; Start 06/23/19 at 04:00 Glucagon (Glucagen) 1 mg Q15M PRN IM DECREASED GLUCOSE; Start 06/23/19 at 04:00 Glucose (Glutose) 15 gm Q15M PRN BUCCAL DECREASED GLUCOSE; Start 06/23/19 at 04:00 Magnesium Hydroxide (Milk Of Mag) 30 ml DAILY PRN PO CONSTIPATION; Start 06/23/19 at 04:00 Levetiracetam 100 ml @ 400 mls/hr Q12 IVPB Last administered on 06/29/19at 08:4 5; Admin Dose 400 MLS/HR; Start 06/23/19 at 09:00 Albuterol (Ventolin Hfa) 4 puff Q4H RESP THERAPY PRN INH SHORTNESS OF BREATH; Start 06/23/19 at 06:00 Carvedilol (Coreg) 12.5 mg BID GTB Last administered on 06/27/19at 22:06; Admin Dose 12.5 MG; Start 06/23/19 at 21:00 Hydralazine HCl (Apresoline) 25 mg TID PO Last administered on 06/28/19at 13:03; Admin Dose 25 MG; Start 06/23/19 at 15:30 Hydralazine HCl (Apresoline) 10 mg Q4H PRN IV sbp >165; Start 06/23/19 at 15:30 Zinc Sulfate (Zinc Sulfate) 220 mg DAILY GTB Last administered on 06/29/19at 08:45; Admin Dose 220 MG; Start 06/26/19 at 14:00 Levothyroxine Sodium (Synthroid) 175 mcg BEFORE BREAKFAST PEG Last administered on 06/29/19at 06:52; Admin Dose 175 MCG; Start 06/29/19 at 07:00 Daptomycin 430 mg/ Sodium Chloride 100 ml @ 200 mls/hr Q48H IVPB Last administered on 06/28/19at 12:55; Admin Dose 200 MLS/HR; Start 06/28/19 at 12:00 Aztreonam 2 gm/ Sodium Chloride 100 ml @ 100 mls/hr Q12 IVPB Last administered on 06/29/19at 08:44; Admin Dose 100 MLS/HR; Start 06/28/19 at 21:00 Liothyronine Sodium (Cytomel) 5 mcg BID PEG Last administered on 06/29/19at 08:45; Admin Dose 5 MCG; Start 06/28/19 at 21:00 Diltiazem HCl 125 ml @ 5 mls/hr TITRATE IV ; Start 06/28/19 at 18:00 BLAIR MYERS NP Jun 29, 2019 12:56
--- NOTE | 2019-06-29 14:04 | PDOCDIS ---
Discharge Instructions CONDITION [id number] Patient Condition: [id number] Guarded FOLLOW UP/APPOINTMENTS Follow-up Plan transfer to [facility] with all orders GLORIA KWON MD Jun 29, 2019 14:04
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
[2019-06-29] MEDS: ATORVASTATIN 10 MG TAB GTB SCH (20:19)
[2019-06-29] MEDS: FAMOTIDINE 20 MG TAB GTB SCH (20:19)
[2019-06-30] MEDS ORDERED: TOBRAMYCIN 130 MG in SOD CHLORIDE 0.9% 100 ML IVPB SCH (06:00)
== END 2019-06-29 20:45 | disposition short-term general hospital (02) | DRG 101 ==
LOC: REC 06-23 00:53 → TEL 06-23 00:54
PROVIDERS: ADMIT Internal Medicine; ATTEND Internal Medicine
PROC: 5A1955Z Respiratory Ventilation, Greater than 96 Consecutive Hours (ICD-10-PCS; principal; 2019-06-23)
DX: G40.901 Epilepsy, unspecified, not intractable, with status epilepticus (principal); J96.10 Chronic respiratory failure, unspecified whether with hypoxia or hypercapnia; G93.40 Encephalopathy, unspecified; Z99.81 Dependence on supplemental oxygen
CPT/HCPCS: 36430; 71045; 80048; 80053; 80200; 82550; 82565; 82962; 83735; 84100; 84439; 84443; 84481; 84520; 85025; 85610; 85651; 86850; 86900; 86901; 86920; 87075; 94002; 94003; 94640; J1815; J1940; J1953; J2060; J3260; P9016